=== PATIENT | male | born 1960 | race Caucasian/White ===

== ENCOUNTER → 2018-03-27 08:00 | Outpatient (CLI) | payer BC, SELFPAY ==
[2018-03-27 11:53] LABS: BUN Creatinine Ratio 26.3 (6-22); Blood Urea Nitrogen 21 mg/dL (9-20); Calcium 9.3 mg/dL (8.4-10.2); Carbon Dioxide 23 mmol/L (22-32); Chloride 104 mmol/L (98-107); Cholesterol 206 mg/dL (140-199); Estimated Glomerular Filt Rate > 60.0 mL/min (>60); Glucose 188 mg/dL (70-100); HDL Cholesterol 49 mg/dL (40-60); HEMOLYSIS < 15 (0-50); LDL Cholesterol Calculated 124 mg/dL (<100); Potassium 4.2 mmol/L (3.4-5.1); Sodium 139 mmol/L (137-145); Triglycerides 167 mg/dL (35-150)
[2018-03-27 13:02] LABS: Hemoglobin A1C% w Est Avg Glu 7.8 % (4.0-6.0)
== END ==
PROVIDERS: PCP Family Medicine; Visit Provider Family Medicine
DX: E11.9 Type 2 diabetes mellitus without complications (principal)
CPT/HCPCS: 36415; 80048; 80061; 83036

== ENCOUNTER → 2018-06-28 07:45 | Outpatient (CLI) | payer BC, SELFPAY ==
[2018-06-28 08:20] LABS: Add Manual Diff / Slide Review NO; Basophils Percent Auto 0.4 % (0-2); Eosinophils Percent Auto 3.9 % (2-4); Hematocrit 47.5 % (41-53); Hemoglobin 16.6 g/dL (13.5-17.5); Lymphocytes Percent Auto 31.5 % (25-40); Mean Corpuscular HGB Conc 34.9 % (30-36); Mean Corpuscular Hemoglobin 30.9 PG (26-34); Mean Corpuscular Volume 88.6 fL (80-100); Monocytes Percent Auto 9.2 % (3-14); Neutrophils Absolute Auto 3400 /uL (3000-5900); Platelet Count 161 X10^3/uL (150-400); Red Blood Cell Count 5.36 X10^6/uL (4.5-5.9); Red Cell Distribution Width 13.9 % (11.6-14.8); White Blood Cell Count 6.2 X10^3/uL (4.5-11.0)
[2018-06-28 08:58] LABS: Hemoglobin A1C% w Est Avg Glu 7.5 % (4.0-6.0)
[2018-06-28 09:09] LABS: Alanine Aminotransferase 24 IU/L (21-72); Albumin 4.1 g/dL (3.5-5.0); Albumin Globulin Ratio 1.5 (1.0-2.8); Alkaline Phosphatase 77 U/L (38-126); Aspartate Aminotransferase 17 IU/L (17-59); BUN Creatinine Ratio 22.5 (6-22); Bilirubin Total 0.8 mg/dL (0.2-1.3); Blood Urea Nitrogen 18 mg/dL (9-20); Calcium 9.3 mg/dL (8.4-10.2); Carbon Dioxide 27 mmol/L (22-32); Chloride 102 mmol/L (98-107); Cholesterol 186 mg/dL (140-199); Estimated Glomerular Filt Rate > 60.0 mL/min (>60); Globulin 2.7 g/dL (1.7-4.1); Glucose 186 mg/dL (70-100); HDL Cholesterol 43 mg/dL (40-60); HEMOLYSIS < 15 (0-50); LDL Cholesterol Calculated 116 mg/dL (<100); Magnesium 1.8 mg/dL (1.6-2.3); Potassium 4.1 mmol/L (3.4-5.1); Sodium 141 mmol/L (137-145); Total Protein 6.8 g/dL (6.3-8.2); Triglycerides 134 mg/dL (35-150)
[2018-06-28 10:00] LABS: Thyroid Stimulating Hormone 1.32 uIU/mL (0.47-4.68)
== END ==
PROVIDERS: PCP Family Medicine; Visit Provider Family Medicine
DX: E11.9 Type 2 diabetes mellitus without complications (principal); I10 Essential (primary) hypertension
CPT/HCPCS: 36415; 80053; 80061; 83036; 83735; 84443; 85025

== ENCOUNTER → 2019-01-01 06:57 | Outpatient (CLI) | payer BC, SELFPAY ==
[2019-01-01 09:24] LABS: Hemoglobin A1C% w Est Avg Glu 7.8 % (4.0-6.0)
== END ==
PROVIDERS: PCP Family Medicine; Visit Provider Family Medicine
DX: E11.9 Type 2 diabetes mellitus without complications (principal)
CPT/HCPCS: 36415; 83036

== ENCOUNTER → 2019-05-12 15:56 | Outpatient (CLI) | payer BC, SELFPAY ==
[2019-05-12 16:39] LABS: Hemoglobin A1C% w Est Avg Glu 7.2 % (4.0-6.0)
[2019-05-12 16:50] LABS: BUN Creatinine Ratio 21.3 (6-22); Blood Urea Nitrogen 17 mg/dL (9-20); Calcium 9.8 mg/dL (8.4-10.2); Carbon Dioxide 23 mmol/L (22-32); Chloride 105 mmol/L (98-107); Estimated Glomerular Filt Rate > 60.0 mL/min (>60); Glucose 194 mg/dL (80-110); HEMOLYSIS < 15 (0-50); Potassium 4.1 mmol/L (3.4-5.1); Sodium 139 mmol/L (137-145)
== END ==
PROVIDERS: PCP Family Medicine; Visit Provider Family Medicine
DX: E11.9 Type 2 diabetes mellitus without complications (principal)
CPT/HCPCS: 36415; 80048; 83036

== ENCOUNTER → 2019-11-06 07:38 | Outpatient (CLI) | payer BC, SELFPAY ==
[2019-11-06 08:25] LABS: Add Manual Diff / Slide Review NO; Basophils Absolute Auto 0 /uL (0-100); Basophils Percent Auto 0.3 % (0-2); Eosinophils Absolute Auto 200 /uL (0-450); Eosinophils Percent Auto 3.6 % (2-4); Hemoglobin 16.9 g/dL (13.5-17.5); Lymphocytes Absolute Auto 2600 /uL (1100-4500); Lymphocytes Percent Auto 42.6 % (25-40); Mean Corpuscular HGB Conc 34.5 % (30-36); Mean Corpuscular Volume 89.8 fL (80-100); Monocytes Absolute Auto 400 /uL (0-900); Monocytes Percent Auto 6.7 % (3-14); Neutrophils Absolute Auto 2800 /uL (1500-7000); Neutrophils Percent Auto 46.8 % (50-75); Platelet Count 166 X10^3/uL (150-400); Red Blood Cell Count 5.46 X10^6/uL (4.5-5.9); Red Cell Distribution Width 13.4 % (11.6-14.8); White Blood Cell Count 6.1 X10^3/uL (4.5-11.0)
[2019-11-06 08:30] LABS: Creatinine Urine Random 217.6 mg/dL
[2019-11-06 08:37] LABS: Microalbumi Creatinin Ratio Ur 36.3 ug/mg CR (<30); Microalbumin Urine Random 7.9 mg/dL (0-1.6)
[2019-11-06 08:51] LABS: Hemoglobin A1C% w Est Avg Glu 7.8 % (4.0-6.0)
[2019-11-06 08:56] LABS: Alanine Aminotransferase 21 IU/L (<50); Albumin 4.3 g/dL (3.5-5.0); Albumin Globulin Ratio 1.5 (1.0-2.8); Alkaline Phosphatase 81 U/L (38-126); Aspartate Aminotransferase 22 IU/L (17-59); BUN Creatinine Ratio 21.3 (6-22); Bilirubin Total 0.9 mg/dL (0.2-1.3); Blood Urea Nitrogen 17 mg/dL (9-20); Calcium 9.6 mg/dL (8.4-10.2); Carbon Dioxide 27 mmol/L (22-32); Chloride 102 mmol/L (98-107); Cholesterol 216 mg/dL (140-199); Estimated Glomerular Filt Rate > 60.0 mL/min (>60); Globulin 2.8 g/dL (1.7-4.1); Glucose 192 mg/dL (80-110); HDL Cholesterol 45 mg/dL (40-60); HEMOLYSIS < 15 (0-50); LDL Cholesterol Calculated 131 mg/dL (<100); Potassium 4.2 mmol/L (3.4-5.1); Sodium 139 mmol/L (137-145); Total Protein 7.1 g/dL (6.3-8.2); Triglycerides 199 mg/dL (35-150)
[2019-11-06 09:18] LABS: Prostate Specific Antigen Scrn 0.871 ng/mL (0.1-4.0)
== END ==
PROVIDERS: PCP Family Medicine; Referring Provider Family Medicine; Visit Provider Family Medicine
DX: E11.9 Type 2 diabetes mellitus without complications (principal)
CPT/HCPCS: 36415; 80053; 80061; 82043; 82570; 83036; 85025; G0103

== ENCOUNTER 2019-12-03 07:30 | Outpatient (RCR) | payer BC, SELFPAY ==
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
--- NOTE | 2019-09-29 12:34 | PT.OPPOC ---
Physical, Occupational & Speech Therapy At [facility] Current Diagnoses Pain in left shoulder (09/29/19) Visit Care Team Role Provider Type Oseas Trammell MD Attending Provider Physician Primary Care Provider Specialty: Family Practice Address: [address] [place] [address], [id number] Email: [email or web address] Plan Of Care PT-OP-T Assessment and Plan Start: 09/25/19 09:26 Freq: Status: Active Protocol: Document 09/29/19 09:46 MB (Rec: 09/29/19 12:34 MB [id number]) Physical Therapy Assessment Rehab Potential Rehabilitation Potential Excellent Evaluation Complexity Number of Personal Factors/Comorbidities 1-2 Number of Body Systems Impaired 1-2 Clinical Presentation at Evaluation Stable Impairments Impairments Functional Activities, Functional Mobility,Pain, Posture,ROM,Soft Tissue Mobility,Strength Goals 5 Penitentiary Goal (LTG) Pt will report an overall 75% improvement in left shoulder pain to improve sleeping by . LTG Duration 8 weeks 4 Penitentiary Goal (LTG) Pt will perform HEP with I including flexibility, strength and posture exercises to improve shoulder and pain by 11/28/2019. LTG Duration 8 weeks 3 Gas Pipe Layer Goal (LTG) Pt will present with improved right shoulder ER strength to 5/5 and left shoulder flexion, abduction, ER and IR strength to at least 4/5 to improve bimanual tasks like yard work and grilling by 11/28/2019. LTG Duration 8 weeks 2 Penitentiary Goal (LTG) Pt will present with improved left shoulder AROM abduction and flexion to at least 165 deg and IR behind back to at least L1 level to improve functional mobility by 2019. LTG Duration 8 weeks 1 Gas Pipe Layer Goal (LTG) Pt will present with QuickDASH score reflecting no more than 10% impairment to improve use of left arm with dressing and showering by 11/28/2019. LTG Duration 8 weeks Assessment Summary Assessment Pt is a 58 y/o male presenting with slow onset of left shoulder decreased ROM, strength and pain. He reports pain up to 5/10 that bothers him when he sleeps on either side, puts his left arm in his coat and tries to reach behind his back. He presents with postural changes, decreased active and passive left shoulder ROM and strength and pain with some ROM activities and demonstrates guarding with PROM. Pt presents with myofascial changes greatest in infraspinatus and middle and anterior deltoid. He will benefit from PT for postural training, flexibility, and strength training. A barrier may be 1x/wk frequency of PT, which pt requests. Physical Therapy Plan Frequency and Duration Frequency of Treatment 1x/Week Duration of Treatment 8 weeks Plan of Care Start Date 09/29/19 Plan of Care End Date 11/28/19 Therapeutic Interventions Therapeutic Interventions Aquatic Therapy,Home Exercise Program,Manual Therapy, Neuromuscular Re-education, Patient/Caregiver Education, Self-Care/Home Management,Soft Tissue Mobilization,Taping, Therapeutic Activities, Therapeutic Exercises Modalities Cold Pack/Ice Massage,Electric Stimulation,Hot Packs, Ultrasound Other Therapeutic Interventions Cold laser Next Visit Focus/Plan Next Note Type Treatment Note Next Visit Plan Consider upper traps racquet ball massage, pect stretch, initiate scapular strengthening if ready vs ROM with cane Plan of Care Dates Plan of Care Start Date 09/29/19 Plan of Care End Date 11/28/19 Electronically Signed by: Kenzie Joy PT 09/29/19 1235 Please Sign and Return: I have reviewed this Plan of Care and certify that the skilled therapy services above are required to meet the patient?s needs. Physician Signature Date Printed Name and Credentials Clinical Instructor Signature Printed Name and Credentials
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
--- NOTE | 2019-11-26 08:32 | PT.OPPOC ---
Physical, Occupational & Speech Therapy At [facility] Current Diagnoses Pain in left shoulder (11/26/19) Visit Care Team Role Provider Type Oseas Trammell MD Attending Provider Physician Primary Care Provider Specialty: Family Practice Address: [address] [place] [address], [id number] Email: [email or web address] Plan Of Care PT-OP-T Assessment and Plan Start: 09/25/19 09:26 Freq: Status: Active Protocol: Document 11/26/19 07:33 MB (Rec: 11/26/19 08:16 MB [id number]) Physical Therapy Assessment Rehab Potential Rehabilitation Potential Excellent Evaluation Complexity Number of Personal Factors/Comorbidities 1-2 Number of Body Systems Impaired 1-2 Clinical Presentation at Evaluation Stable Impairments Impairments Functional Activities, Functional Mobility,Pain, Posture,ROM,Soft Tissue Mobility,Strength Goals 5 School Crossing Guard Goal (LTG) Pt will report an overall 75% improvement in left shoulder pain to improve sleeping by 07/2020. 11/26/2019: Pt reports an overall 30% improvement in left shoulder pain since starting PT. LTG Duration 8 weeks 4 School Crossing Guard Goal (LTG) Pt will perform HEP with I including flexibility, strength and posture exercises to improve shoulder and pain by 01/26/2020. 11/26/2019: Pt is performing progressive HEP as able. LTG Duration 8 weeks 3 School Crossing Guard Goal (LTG) Pt will present with improved right shoulder ER strength to 5/5 and left shoulder flexion, abduction, ER and IR strength to at least 4/5 to improve bimanual tasks like yard work and grilling by 01/26/2020. 11/26/2019: MMT deferred today after mobs and BPPV treatment, range is better LTG Duration 8 weeks 2 School Crossing Guard Goal (LTG) Pt will present with improved left shoulder AROM abduction and flexion to at least 165 deg and IR behind back to at least L1 level to improve functional mobility by 2019. 11/26/2019: Pt presents with left shoulder flexion to 120 deg, left shoulder abduction to 90 deg, IR behind back to 2 above belt line today LTG Duration 8 weeks 1 Longterm Goal (LTG) Pt will present with QuickDASH score reflecting no more than 10% impairment to improve use of left arm with dressing and showering by 01/26/2020. 11/26/2019: Pt presents with QuickDASH score reflecting 27. 25% impairment LTG Duration 8 weeks Assessment Summary Assessment Pt has progressed towards all goals since starting PT. Reports on QuickDASH today do reflect higher score but this may indicate more use of arms with ADLs, work. Improvement has been slow d/t 1x/wk frequency, pt having to go out of town and cancelling a couple of appointments. He has been better over the last three treatments. He will benefit from ongoing PT to progress ROM, function and to decrease pain. Initiated [place] Protocol today to asst with glenohumeral and scapular mobility. ROM in abduction, flexion, ER and IR much better after treament--he reaches with left 2 above belt line. Stopped full mob treatment today d/t BPPV and treatment. Con't progression. Physical Therapy Plan Frequency and Duration Frequency of Treatment 1x/Week Duration of Treatment 8 weeks Plan of Care Start Date 09/29/19 Plan of Care End Date 01/26/20 Therapeutic Interventions Therapeutic Interventions Aquatic Therapy,Canalithic Repositioning,Home Exercise Program,Manual Therapy, Neuromuscular Re-education, Patient/Caregiver Education, Self-Care/Home Management,Soft Tissue Mobilization,Taping, Therapeutic Activities, Therapeutic Exercises Modalities Cold Pack/Ice Massage,Electric Stimulation,Hot Packs, Ultrasound Other Therapeutic Interventions Cold laser Next Visit Focus/Plan Next Note Type Treatment Note Next Visit Plan Consider pillow case slide up the wall, IR behind back Plan of Care Dates Plan of Care Start Date 09/29/19 Plan of Care End Date 01/26/20 Electronically Signed by: Kenzie Joy, PT 11/26/19 0832 Please Sign and Return: I have reviewed this Plan of Care and certify that the skilled therapy services above are required to meet the patient?s needs. Physician Signature Date Printed Name and Credentials Clinical Instructor Signature Printed Name and Credentials
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
--- NOTE | 2019-12-27 13:10 | PT-OP ANOTE ---
PT calls pt and leaves message regarding PT plan. PT leaves [facility] email address for pt to respond.
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
== END 2019-12-29 00:52 ==
LOC: PHYS 07:30
PROVIDERS: PCP Family Medicine; Visit Provider Family Medicine
DX: M25.512 Pain in left shoulder (principal)
CPT/HCPCS: 95992; 97110; 97140; 97161

== ENCOUNTER → 2020-02-13 07:15 | Outpatient (CLI) | payer BC, SELFPAY ==
[2020-02-13 08:17] LABS: BUN Creatinine Ratio 19.8 (6-22); Blood Urea Nitrogen 16 mg/dL (9-20); Calcium 9.8 mg/dL (8.4-10.2); Carbon Dioxide 27 mmol/L (22-32); Chloride 102 mmol/L (98-107); Estimated Glomerular Filt Rate > 60.0 mL/min (>60); Glucose 162 mg/dL (80-110); HEMOLYSIS 16 (0-50); Potassium 4.5 mmol/L (3.4-5.1); Sodium 137 mmol/L (137-145)
[2020-02-13 08:20] LABS: Hemoglobin A1C% w Est Avg Glu 7.7 % (4.0-6.0)
== END ==
PROVIDERS: PCP Family Medicine; Referring Provider Family Medicine; Visit Provider Family Medicine
DX: E11.9 Type 2 diabetes mellitus without complications (principal)
CPT/HCPCS: 36415; 80048; 83036

== ENCOUNTER → 2020-05-13 07:51 | Outpatient (CLI) | payer BC, SELFPAY ==
[2020-05-13 08:55] LABS: Hemoglobin A1C% w Est Avg Glu 7.7 % (4.0-6.0)
[2020-05-13 09:05] LABS: BUN Creatinine Ratio 19.5 (6-22); Blood Urea Nitrogen 17 mg/dL (9-20); Calcium 9.8 mg/dL (8.4-10.2); Carbon Dioxide 26 mmol/L (22-32); Chloride 103 mmol/L (98-107); Estimated Glomerular Filt Rate > 60.0 mL/min (>60); Glucose 154 mg/dL (80-110); HEMOLYSIS 16 (0-50); Potassium 4.9 mmol/L (3.4-5.1); Sodium 138 mmol/L (137-145)
== END ==
PROVIDERS: PCP Family Medicine; Referring Provider Family Medicine; Visit Provider Family Medicine
DX: E11.9 Type 2 diabetes mellitus without complications (principal)
CPT/HCPCS: 36415; 80048; 83036

== ENCOUNTER → 2020-07-27 07:19 | Outpatient (CLI) | payer BC, SELFPAY ==
[2020-07-27 09:20] LABS: BUN Creatinine Ratio 23.3 (6-22); Blood Urea Nitrogen 17 mg/dL (9-20); Calcium 9.6 mg/dL (8.4-10.2); Carbon Dioxide 24 mmol/L (22-32); Chloride 102 mmol/L (98-107); Estimated Glomerular Filt Rate > 60.0 mL/min (>60); Glucose 248 mg/dL (80-110); HEMOLYSIS < 15 (0-50); Hemoglobin A1C% w Est Avg Glu 8.2 % (4.0-6.0); Potassium 4.4 mmol/L (3.4-5.1); Sodium 135 mmol/L (137-145)
== END ==
PROVIDERS: PCP Family Medicine; Referring Provider Family Medicine; Visit Provider Family Medicine
DX: E11.9 Type 2 diabetes mellitus without complications (principal); R73.09 Other abnormal glucose; E78.2 Mixed hyperlipidemia; I10 Essential (primary) hypertension
CPT/HCPCS: 36415; 80048; 83036

== ENCOUNTER → 2020-08-26 06:52 | Outpatient (CLI) | payer BC, SELFPAY ==
[2020-08-26 09:01] LABS: BUN Creatinine Ratio 25.5 (6-22); Blood Urea Nitrogen 25 mg/dL (9-20); Calcium 9.7 mg/dL (8.4-10.2); Carbon Dioxide 30 mmol/L (22-32); Chloride 100 mmol/L (98-107); Estimated Glomerular Filt Rate > 60.0 mL/min (>60); Glucose 170 mg/dL (80-110); HEMOLYSIS < 15 (0-50); Potassium 4.3 mmol/L (3.4-5.1); Sodium 136 mmol/L (137-145)
== END ==
PROVIDERS: PCP Family Medicine; Referring Provider Family Medicine; Visit Provider Family Medicine
DX: E11.9 Type 2 diabetes mellitus without complications (principal)
CPT/HCPCS: 36415; 80048; 83036

== ENCOUNTER → 2020-11-02 06:58 | Outpatient (CLI) | payer BC, SELFPAY ==
[2020-11-02 08:17] LABS: Hemoglobin A1C% w Est Avg Glu 8.2 % (4.0-6.0)
[2020-11-02 08:23] LABS: Alanine Aminotransferase 15 IU/L (<50); Albumin 4.1 g/dL (3.5-5.0); Albumin Globulin Ratio 1.4 (1.0-2.8); Alkaline Phosphatase 85 U/L (38-126); Aspartate Aminotransferase 19 IU/L (17-59); BUN Creatinine Ratio 24.7 (6-22); Bilirubin Total 0.6 mg/dL (0.2-1.3); Blood Urea Nitrogen 22 mg/dL (9-20); Calcium 9.4 mg/dL (8.4-10.2); Carbon Dioxide 31 mmol/L (22-32); Chloride 101 mmol/L (98-107); Cholesterol 188 mg/dL (140-199); Estimated Glomerular Filt Rate > 60.0 mL/min (>60); Globulin 2.9 g/dL (1.7-4.1); Glucose 197 mg/dL (80-110); HDL Cholesterol 51 mg/dL (40-60); HEMOLYSIS < 15 (0-50); LDL Cholesterol Calculated 114 mg/dL (<100); Potassium 3.8 mmol/L (3.4-5.1); Sodium 137 mmol/L (137-145); Triglycerides 113 mg/dL (35-150)
[2020-11-02 08:40] LABS: Creatinine Urine Random 195.5 mg/dL
[2020-11-02 08:44] LABS: Microalbumi Creatinin Ratio Ur 19.9 ug/mg CR (<30); Microalbumin Urine Random 3.9 mg/dL (0-1.6)
[2020-11-02 08:55] LABS: Prostate Specific Antigen Scrn 1.41 ng/mL (0.1-4.0)
== END ==
PROVIDERS: PCP Family Medicine; Referring Provider Family Medicine; Visit Provider Family Medicine
DX: E11.9 Type 2 diabetes mellitus without complications (principal); I10 Essential (primary) hypertension; E78.2 Mixed hyperlipidemia; Z12.5 Encounter for screening for malignant neoplasm of prostate
CPT/HCPCS: 36415; 80053; 80061; 82043; 82570; 83036; G0103

== ENCOUNTER → 2020-11-05 08:18 | Outpatient (CLI) | payer BC, SELFPAY ==
--- NOTE | 2020-11-05 08:18 | DI.US.S_ITS ---
PROCEDURE: US ABDOMEN LIMITED INDICATIONS: RIGHT UPPER QUADRANT PAIN TECHNIQUE: Real-time focused scanning was performed of the abdomen, with image documentation. COMPARISON: None. FINDINGS: The liver is normal in craniocaudad length at 12.5 cm. It is mildly increased in echotexture, and note is made of a small left hepatic lobe cyst with minimal internal debris measuring up to 5 x 6 x 7 mm. The main portal vein for flow direction is normal, hepatopetal. The gallbladder is normal in wall thickness at 2.7 mm. There is, however, a finding of sludge in several stones, 1 of which is nonmobile and measures up to 1.4 cm. The adjacent common duct is normal in caliber at 4.1 cm. The pancreas is normal where well seen. IMPRESSION: Hyperechoic liver echotexture, indicating mild hepatic steatosis. No solid hepatic mass lesion found. No intrahepatic or extrahepatic biliary distention is seen. The gallbladder is normal in wall thickness but there is sludge and several stones within the gallbladder lumen. Acute cholecystitis is not found but the findings may indicate episodic biliary colic in this patient with right upper quadrant pain., Dictated by: Rodrigue Barger M.D. on 11/05/2020 at 13:01 Approved by: Rodrigue Barger M.D. on 11/05/2020 at 13:06
== END ==
PROVIDERS: PCP Family Medicine; Referring Provider Family Medicine; Visit Provider Family Medicine
DX: R10.11 Right upper quadrant pain (principal); K80.20 Calculus of gallbladder without cholecystitis without obstruction; I10 Essential (primary) hypertension
CPT/HCPCS: 76705

== ENCOUNTER 2020-12-29 09:25 | Observation (INO) | payer BC, SELFPAY ==
[2020-12-29] VITALS (13 sets, daily range): BP systolic 105–135; BP diastolic 66–86; PULSE 93–119; RESP 14–25; TEMP 36.6–37; O2SAT 95–100; BMI 28.8
[2020-12-29 10:08] LABS: Add Manual Diff / Slide Review NO; Basophils Absolute Auto 100 /uL (0-100); Basophils Percent Auto 0.5 % (0-2); Eosinophils Absolute Auto 200 /uL (0-450); Eosinophils Percent Auto 2.4 % (2-4); Hematocrit 50.9 % (41-53); Hemoglobin 17.2 g/dL (13.5-17.5); Lymphocytes Absolute Auto 2100 /uL (1100-4500); Lymphocytes Percent Auto 20.6 % (25-40); Mean Corpuscular HGB Conc 33.9 % (30-36); Mean Corpuscular Hemoglobin 30.6 PG (26-34); Mean Corpuscular Volume 90.4 fL (80-100); Monocytes Absolute Auto 1000 /uL (0-900); Monocytes Percent Auto 10.3 % (3-14); Neutrophils Absolute Auto 6600 /uL (1500-7000); Neutrophils Percent Auto 66.2 % (50-75); Platelet Count 152 X10^3/uL (150-400); Red Blood Cell Count 5.63 X10^6/uL (4.5-5.9); Red Cell Distribution Width 13.9 % (11.6-14.8)
[2020-12-29 10:14] LABS: Prothrombin Time 11.8 SECONDS (10.1-12.7)
[2020-12-29] MEDS: SODIUM CHLORIDE 0.9% 1,000 ML 1000 ML IV (10:16)
[2020-12-29 10:17] LABS: Lactate (Lactic Acid) 1.8 mmol/L (0.7-2.1); PTT Partial Thromboplastin Tim 33 SECONDS (26.4-36.2)
[2020-12-29 10:19] LABS: Alanine Aminotransferase 15 IU/L (<50); Albumin 4.1 g/dL (3.5-5.0); Albumin Globulin Ratio 1.4 (1.0-2.8); Alkaline Phosphatase 80 U/L (38-126); Aspartate Aminotransferase 18 IU/L (17-59); Bilirubin Total 0.7 mg/dL (0.2-1.3); Blood Urea Nitrogen 30 mg/dL (9-20); Calcium 9.9 mg/dL (8.4-10.2); Carbon Dioxide 21 mmol/L (22-32); Chloride 102 mmol/L (98-107); Estimated Glomerular Filt Rate > 60.0 mL/min (>60); Globulin 2.9 g/dL (1.7-4.1); Glucose 280 mg/dL (80-110); HEMOLYSIS < 15 (0-50); Lipase 93 U/L (23-300); Potassium 4.3 mmol/L (3.4-5.1); Sodium 134 mmol/L (137-145)
--- NOTE | 2020-12-29 10:28 | ED_ITS ---
HPI - Dizziness General Chief Complaint: Abdominal Pain Stated Complaint: severe vertigo 45 minutes/gall bladder attack Time Seen by Provider: 12/29/20 10:09 Source: patient Mode of arrival: Ambulatory Limitations: no limitations History of Present Illness HPI Narrative: Patient is a 60-year-old male who presents with a variety of complaints including dizziness. He has a history of diabetes and gallbladder issues. He said this morning at around 8:15 a.m. he got extremely dizzy was off balance had difficulty with walking. He has had episodes of vertigo before but this is slightly different. The whole episode lasted for about 45 minutes and has now completely resolved. Although states that he did not have any difficulty speaking or facial droop. He had no numbness tingling or weakness. He has been having right upper quadrant pain off and on throughout the weekend stating that he has gallbladder attack. He had an ultrasound back in October which did show there were sludge and several stones. He currently has no right upper quadrant pain. He is also concerned that his glucose may be was high, thought that he smelled of ketones while he was sleeping in the has respirations happened fast. He has no nausea or vomiting now. Dizziness has resolved. He denies any chest pain palpitations fever or chills. He is self pay and they would like to limit ED cough however they are agreeable to head CT and blood work at this time. MD complaint: dizziness Timing: sudden onset Description: sense of movement Related Data Home Medications Medication Instructions Recorded Confirmed empagliflozin [Jardiance] 25 mg PO BEDTIME 12/29/20 12/29/20 gabapentin 100 mg PO BEDTIME 12/29/20 12/29/20 lisinopril 10 mg PO BEDTIME 12/29/20 12/29/20 Previous Rx's Medication Instructions Recorded sildenafil (pulm.hypertension) 20 20 mg PO ONCE #30 tab 05/12/19 mg tablet metformin 500 mg tablet 1,000 mg PO BID #45 tab 10/28/20 zolpidem 5 mg tablet 5 mg PO HSP PRN #30 tab 11/01/20 glipizide 10 mg tablet, extended 10 mg PO BID #180 tab 12/09/20 release 24 hr Allergies Allergy/AdvReac Type Severity Reaction Status Date / Time No Known Drug Allergies Allergy Verified 12/29/20 13:10 Review of Systems Review of Systems ROS Unobtainable: All systems reviewed & are unremarkable except as noted in HPI and below Constitutional Constitutional: Denies chills, Denies fever(s), Denies lethargy and Denies weakness ENT Ears, Nose, Mouth, and Throat: Denies vertigo and Reports dizziness Cardiovascular Cardiovascular: Denies chest pain, Denies irregular heart rhythm, Reports lightheadedness, Denies palpitations, Denies dyspnea, Denies dyspnea on exertion and Denies orthopnea Respiratory Respiratory: Denies cough, Denies dyspnea, Denies dyspnea on exertion and Denies wheezing Gastrointestinal Gastrointestinal: Reports as per HPI Musculoskeletal Musculoskeletal: Denies myalgias and Denies muscle cramps Integumentary/Breasts Skin/Breast: Denies pruritus, Denies erythema, Denies rash and Denies wounds Neurologic Neurologic: Denies vertigo, Reports dizziness and Denies weakness Endocrine Endocrine: Denies palpitations Allergic/Immunologic Allergic/Immunologic: Denies wheezing Patient History Medical History (Updated 12/29/20 @ 17:21 by Norberto Hunt MD) Cholelithiasis Chronic back pain (~1975) Diverticular disease (~2015) Essential hypertension (~2010) Foot pain (~2010) Herpes (~1976) Mixed hyperlipidemia (10/03/17) Tinnitus Type 2 diabetes mellitus without complication (10/03/17) Vertigo (~2018) Surgical History Anesthesia History of dental surgery (~2018) History of toe surgery (~2015) Status post LASIK surgery of both eyes (~1997) Family History Father Hypertension Mother Dementia Hospice care Social History household members: family Smoking Status: Never smoker Smoking Status: Never smoker Substance Use Type: does not use Exam Initial Vital Signs Initial Vital Signs: Vital Signs Temperature 97.8 F 12/29/20 09:25 Pulse Rate 116 H 12/29/20 09:25 Respiratory Rate 17 12/29/20 09:25 Blood Pressure 108/79 12/29/20 09:25 Pulse Oximetry 97 12/29/20 09:25 GENERAL: Alert pleasant 60-year-old male and in no acute distress. HEENT: Head atraumatic,EOMI, pupils reactive, face symmetric, moist mucous membranes CARDIOVASCULAR: Regular rate and rhythm without murmurs, rubs or gallops. RESPIRATORY: Breath sounds equal bilaterally, no wheezes rales or rhonchi. ABDOMEN: Soft, nontender. Normoactive bowel sounds all 4 quadrants. No guarding or rebound. Negative Caballero sign : No CVA tenderness EXTREMITIES: Normal range of motion, no clubbing or edema. Neurovascularly intact NEUROLOGICAL: Alert and oriented x4.Normal gait and speech. Cranial nerves II through XII grossly intact. Good [id number], good [id number], strength equal bilaterally, no dysarthria or aphasia, sensation in tact to soft touch bilaterally, no visual changes, no facial droop SKIN: Warm, dry, no laceration, no petechiae, no rashes or lesions. Scores NIH Stroke Scale Level of Conciousness: Alert, keenly responsive Ask month/age: Answers both questions correctly. Open/close eyes, close hand: Performs both tasks correctly Best gaze horizontal: Normal Visual valverde: No visual loss Facial palsy: Normal symetrical movement Left arm drift: No drift for full 10 sec Right arm drift: No drift for full 10 sec Left leg drift: No drift for full 5 sec Right leg drift: No drift for full 5 sec Limb ataxia: Absent Sensory on face/arms/legs: Normal, no sensory loss Best language: No aphasia, normal Dysarthria: Normal Extinction or inattention: No abnormality Total NIH Stroke scale score: 0 Course Orders Ordered: ED Orders 12/29/20 10:00 Complete Blood Count AUTO DIFF Stat Comprehensive Metabolic Panel Stat D Dimer Stat Lactate (Lactic Acid) Stat Lipase Stat Partial Thromboplastin Time Stat Procalcitonin Stat Prothrombin Time INR Stat Troponin & CK Cardiac Panel Stat 12/29/20 10:30 CT head/brain wo con Stat 12/29/20 11:59 CT angio chest PE protocol Stat 12/29/20 12:37 COVID19 - ADMIT ([employer] swab/PCR) Stat Aspirin (Aspirin Ec 81 Mg Tablet) 81 mg PO DAILY GELY Dextrose (Dextrose 50 % In Water 25 Gm/50 Ml Syringe) 25 gm IV PRN PRN; Protoco l PRN Reason: Hypoglycemia Gabapentin (Gabapentin 100 Mg Capsule) 100 mg PO BEDTIME GELY Glipizide (Glipizide Xl 5 Mg Tab) 10 mg PO BIDWM GELY Last Admin: 12/29/20 17:14 Dose: 10 mg Documented by: RADHA Insulin Aspart (Insulin Aspart 100 Unit/Ml Insuln Pen) 0 unit SUBCUT [facility]; Protocol Last Admin: 12/29/20 16:48 Dose: 1 unit Documented by: RADHA Cosigned by: MOOSE Lisinopril (Lisinopril 10 Mg Tablet) 10 mg PO BEDTIME GELY Magnesium Hydroxide (Magnesium Hydroxide 30 Ml Udc) 30 ml PO DAILY PRN PRN Reason: Constipation Metformin HCl (Metformin Hcl 500 Mg Tablet) 1,000 mg PO BIDWM GELY Naloxone HCl (Naloxone 0.4 Mg/Ml Vial) 0.2 mg IV Q2MIN PRN PRN Reason: Opiate Reversal Empagliflozin [ Jardiance] 25 Mg Tablet 25 mg PO BEDTIME GELY Zolpidem Tartrate (Zolpidem 5 Mg Tablet) 5 mg PO BEDTIME PRN PRN Reason: insomnia Discontinued Medications Aspirin (Aspirin 81 Mg Chew Tab) 324 mg PO NOW ONE Stop: 12/29/20 12:41 Last Admin: 12/29/20 13:26 Dose: 324 mg Documented by: ARUN Sodium Chloride (Normal Saline 0.9%) 1,000 mls @ 1,000 mls/hr IV BOLUS ONE Stop: 12/29/20 10:47 Last Infusion: 12/29/20 11:30 Dose: 0 mls/hr Documented by: Admin: 12/29/20 10:16 Dose: 1,000 mls/hr Documented by: ARUN Vital Signs Vital signs: Vital Signs - 8 hr 12/29/20 09:53 12/29/20 10:00 12/29/20 10:30 Pulse Rate 105 H 108 H 100 H Respiratory Rate 14 Blood Pressure 105/69 107/66 Pulse Oximetry 96 95 96 12/29/20 10:42 12/29/20 11:00 12/29/20 12:18 Pulse Rate 99 H 93 H 98 H Respiratory Rate 16 25 H Blood Pressure 135/86 108/71 119/76 Pulse Oximetry 98 96 97 12/29/20 12:30 12/29/20 13:00 Pulse Rate 98 H 106 H Respiratory Rate 25 H 24 Blood Pressure 112/73 126/79 Pulse Oximetry 97 97 MDM - Dizziness Lab Data Attestation: I reviewed the patient's lab results. Result diagrams: 12/29/20 10:00 12/29/20 10:00 Labs: Lab Results 12/29/20 12/29/20 12/29/20 Range/Units 10:00 10:00 10:00 WBC 10.0 (4.5-11.0) X10^3/uL RBC 5.63 (4.5-5.9) X10^6/uL Hgb 17.2 (13.5-17.5) g/dL Hct 50.9 (41-53) % MCV 90.4 (80-100) fL MCH 30.6 (26-34) PG MCHC 33.9 (30-36) % RDW 13.9 (11.6-14.8) % Plt Count 152 (150-400) X10^3/uL Neut % (Auto) 66.2 (50-75) % Lymph % (Auto) 20.6 L (25-40) % [place] % (Auto) 10.3 (3-14) % Eos % (Auto) 2.4 (2-4) % Baso % (Auto) 0.5 (0-2) % Neut # (Auto) 6600 (7195-5931) /uL Lymph # (Auto) 2100 (0222-9736) /uL [place] # (Auto) 1000 H (0-900) /uL Eos # (Auto) 200 (0-450) /uL Baso # (Auto) 100 (0-100) /uL PT 11.8 (10.1-12.7) SECONDS INR 1.0 (0.9-1.3) APTT 33 (26.4-36.2) SECONDS D-Dimer (<230) ng/mL Sodium 134 L (137-145) mmol/L Potassium 4.3 (3.4-5.1) mmol/L Chloride 102 (98-107) mmol/L Carbon Dioxide 21 L (22-32) mmol/L BUN 30 H (9-20) mg/dL Creatinine 1.11 (0.66-1.25) mg/dL Estimated GFR > 60.0 (>60) mL/min BUN/Creatinine Ratio 27.0 H (6-22) Glucose 280 H (80-110) mg/dL Hemoglobin A1c (4.0-6.0) % Lactate (0.7-2.1) mmol/L Calcium 9.9 (8.4-10.2) mg/dL Total Bilirubin 0.7 (0.2-1.3) mg/dL AST 18 (17-59) IU/L ALT 15 (<50) IU/L Alkaline Phosphatase 80 (38-126) U/L Total Creatine Kinase (55-170) U/L CK-MB (CK-2) CK-MB (CK-2) Rel Index Troponin I (0.01-0.034) ng/mL Total Protein 7.0 (6.3-8.2) g/dL Albumin 4.1 (3.5-5.0) g/dL Globulin 2.9 (1.7-4.1) g/dL Albumin/Globulin Ratio 1.4 (1.0-2.8) Triglycerides (35-150) mg/dL Cholesterol (140-199) mg/dL LDL Cholesterol, Calc (<100) mg/dL HDL Cholesterol (40-60) mg/dL Lipase 93 (23-300) U/L Procalcitonin (<0.5) ng/mL SARS-CoV-2 (PCR) (Negative) 12/29/20 12/29/20 12/29/20 Range/Units 10:00 10:00 10:00 WBC (4.5-11.0) X10^3/uL RBC (4.5-5.9) X10^6/uL Hgb (13.5-17.5) g/dL Hct (41-53) % MCV (80-100) fL MCH (26-34) PG MCHC (30-36) % RDW (11.6-14.8) % Plt Count (150-400) X10^3/uL Neut % (Auto) (50-75) % Lymph % (Auto) (25-40) % Nicollet % (Auto) (3-14) % Eos % (Auto) (2-4) % Baso % (Auto) (0-2) % Neut # (Auto) (4689-7659) /uL Lymph # (Auto) (5652-7424) /uL Nicol[place] # (Auto) (0-900) /uL Eos # (Auto) (0-450) /uL Baso # (Auto) (0-100) /uL PT (10.1-12.7) SECONDS INR (0.9-1.3) APTT (26.4-36.2) SECONDS D-Dimer (<230) ng/mL Sodium (137-145) mmol/L Potassium (3.4-5.1) mmol/L Chloride (98-107) mmol/L Carbon Dioxide (22-32) mmol/L BUN (9-20) mg/dL Creatinine (0.66-1.25) mg/dL Estimated GFR (>60) mL/min BUN/Creatinine Ratio (6-22) Glucose (80-110) mg/dL Hemoglobin A1c (4.0-6.0) % Lactate 1.8 (0.7-2.1) mmol/L Calcium (8.4-10.2) mg/dL Total Bilirubin (0.2-1.3) mg/dL AST (17-59) IU/L ALT (<50) IU/L Alkaline Phosphatase (38-126) U/L Total Creatine Kinase 20 L (55-170) U/L CK-MB (CK-2) TNP CK-MB (CK-2) Rel Index TNP Troponin I 0.096 H (0.01-0.034) ng/mL Total Protein (6.3-8.2) g/dL Albumin (3.5-5.0) g/dL Globulin (1.7-4.1) g/dL Albumin/Globulin Ratio (1.0-2.8) Triglycerides (35-150) mg/dL Cholesterol (140-199) mg/dL LDL Cholesterol, Calc (<100) mg/dL HDL Cholesterol (40-60) mg/dL Lipase (23-300) U/L Procalcitonin 0.27 (<0.5) ng/mL SARS-CoV-2 (PCR) (Negative) 12/29/20 12/29/20 12/29/20 Range/Units 10:00 10:00 10:00 WBC (4.5-11.0) X10^3/uL RBC (4.5-5.9) X10^6/uL Hgb (13.5-17.5) g/dL Hct (41-53) % MCV (80-100) fL MCH (26-34) PG MCHC (30-36) % RDW (11.6-14.8) % Plt Count (150-400) X10^3/uL Neut % (Auto) (50-75) % Lymph % (Auto) (25-40) % Nicollet % (Auto) (3-14) % Eos % (Auto) (2-4) % Baso % (Auto) (0-2) % Neut # (Auto) (9095-8485) /uL Lymph # (Auto) (2953-8144) /uL Nicollet # (Auto) (0-900) /uL Eos # (Auto) (0-450) /uL Baso # (Auto) (0-100) /uL PT (10.1-12.7) SECONDS INR (0.9-1.3) APTT (26.4-36.2) SECONDS D-Dimer 741 H (<230) ng/mL Sodium (137-145) mmol/L Potassium (3.4-5.1) mmol/L Chloride (98-107) mmol/L Carbon Dioxide (22-32) mmol/L BUN (9-20) mg/dL Creatinine (0.66-1.25) mg/dL Estimated GFR (>60) mL/min BUN/Creatinine Ratio (6-22) Glucose (80-110) mg/dL Hemoglobin A1c 7.5 H (4.0-6.0) % Lactate (0.7-2.1) mmol/L Calcium (8.4-10.2) mg/dL Total Bilirubin (0.2-1.3) mg/dL AST (17-59) IU/L ALT (<50) IU/L Alkaline Phosphatase (38-126) U/L Total Creatine Kinase (55-170) U/L CK-MB (CK-2) CK-MB (CK-2) Rel Index Troponin I (0.01-0.034) ng/mL Total Protein (6.3-8.2) g/dL Albumin (3.5-5.0) g/dL Globulin (1.7-4.1) g/dL Albumin/Globulin Ratio (1.0-2.8) Triglycerides 181 H (35-150) mg/dL Cholesterol 203 H (140-199) mg/dL LDL Cholesterol, Calc 111 H (<100) mg/dL HDL Cholesterol 56 (40-60) mg/dL Lipase (23-300) U/L Procalcitonin (<0.5) ng/mL SARS-CoV-2 (PCR) (Negative) 12/29/20 Range/Units 12:37 WBC (4.5-11.0) X10^3/uL RBC (4.5-5.9) X10^6/uL Hgb (13.5-17.5) g/dL Hct (41-53) % MCV (80-100) fL MCH (26-34) PG MCHC (30-36) % RDW (11.6-14.8) % Plt Count (150-400) X10^3/uL Neut % (Auto) (50-75) % Lymph % (Auto) (25-40) % Nicollet % (Auto) (3-14) % Eos % (Auto) (2-4) % Baso % (Auto) (0-2) % Neut # (Auto) (8922-8080) /uL Lymph # (Auto) (8017-0838) /uL Nicollet # (Auto) (0-900) /uL Eos # (Auto) (0-450) /uL Baso # (Auto) (0-100) /uL PT (10.1-12.7) SECONDS INR (0.9-1.3) APTT (26.4-36.2) SECONDS D-Dimer (<230) ng/mL Sodium (137-145) mmol/L Potassium (3.4-5.1) mmol/L Chloride (98-107) mmol/L Carbon Dioxide (22-32) mmol/L BUN (9-20) mg/dL Creatinine (0.66-1.25) mg/dL Estimated GFR (>60) mL/min BUN/Creatinine Ratio (6-22) Glucose (80-110) mg/dL Hemoglobin A1c (4.0-6.0) % Lactate (0.7-2.1) mmol/L Calcium (8.4-10.2) mg/dL Total Bilirubin (0.2-1.3) mg/dL AST (17-59) IU/L ALT (<50) IU/L Alkaline Phosphatase (38-126) U/L Total Creatine Kinase (55-170) U/L CK-MB (CK-2) CK-MB (CK-2) Rel Index Troponin I (0.01-0.034) ng/mL Total Protein (6.3-8.2) g/dL Albumin (3.5-5.0) g/dL Globulin (1.7-4.1) g/dL Albumin/Globulin Ratio (1.0-2.8) Triglycerides (35-150) mg/dL Cholesterol (140-199) mg/dL LDL Cholesterol, Calc (<100) mg/dL HDL Cholesterol (40-60) mg/dL Lipase (23-300) U/L Procalcitonin (<0.5) ng/mL SARS-CoV-2 (PCR) Negative (Negative) Point of Care Testing Glucose POC 221 Urine Dip Bedside Urine Glucose Negative Bedside Urine Bilirubin - Negative Bedside Urine Ketone - Negative Urine Specific [place] 1.015 Bedside Urine Occult Blood - Negative Bedside Urine pH 5.5 Bedside Urine Protein - Negative Bedside Urine Urobilinogen - Negative Bedside Urine Nitrite - Negative Bedside Urine Leukocytes - Negative Esterase Imaging Data CT scan - head: Radiologist's Impression: PROCEDURE: CT HEAD/BRAIN WO CON INDICATIONS: dizzy TECHNIQUE: Noncontrast 4.5 mm thick angled axial sections acquired from the foramen magnum to the vertex, with coronal and sagittal reformats. For radiation dose reduction, the following was used: automated exposure control, adjustment of mA and/or kV according to patient size. COMPARISON: None. FINDINGS: Image quality: Excellent. CSF spaces: Basal cisterns are patent. No extra-axial fluid collections. The ventricles are symmetric in size and shape. Brain: No intracranial bleeds or masses. There is cerebral volume loss for age, with resultant ventricular and sulcal prominence. There are periventricular and deep white matter chronic small vessel ischemic changes. 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 There is intracranial internal carotid artery atherosclerosis. Skull and face: Calvarium and visualized facial bones appear intact, without suspicious lesions. Sinuses: Patchy bilateral ethmoid opacification. IMPRESSION: 1. 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 2. No evidence acute stroke, hemorrhage, or mass. 3. Patchy bilateral ethmoid opacification. Dictated by: Marcio Arellano M.D. on 12/29/2020 at 10:4 CT scan - chest: Radiologist's Impression: PROCEDURE: CT ANGIO CHEST PE PROTOCOL INDICATIONS: high d-dimer TECHNIQUE: After the administration of intravenous contrast, 2 mm thick sections acquired from the pulmonary apices to the posterior costophrenic angles. 3-dimensional maximum intensity projection (MIP) coronal and sagittal reformats were then acquired through the thorax. For radiation dose reduction, the following was used: automated exposure control, adjustment of mA and/or kV according to patient size. COMPARISON: None. FINDINGS: Image quality: Excellent. Pulmonary arteries: Pulmonary arteries are normal in size, and demonstrate no intraluminal filling defects to suggest central pulmonary embolism. Lungs and pleura: Lungs are clear. No pleural effusions or pneumothorax. Central and peripheral airways are patent. Mediastinum: Heart size is normal, without pericardial effusion. No mediastinal or hilar adenopathy. Thoracic aorta is normal in caliber and enhancement. Esophagus is normal in caliber, without hiatal hernia. Bones and chest wall: No suspicious bony lesions. Ribs and thoracic spine appear intact throughout. Thyroid gland appears normal where well seen. No axillary or supraclavicular adenopathy. Abdomen: Visualized upper abdominal solid organs appear normal in the early arterial phase of enhancement. Small calcified gallstones within the gallbladder lumen. No sign of acute cholecystitis or biliary obstruction. IMPRESSION: No pulmonary embolus found. No pneumonia identified note is made of several small gallstones, peripherally calcified, within the gallbladder lumen. Dictated by: Rodrigue Barger M.D. on 12/29/2020 at 12:22 ECG Data Attestation: I personally reviewed and interpreted this ECG as follows: Prior ECG tracings: not available for review Interpretation: Normal sinus rhythm rate 105 year interval 124 QRS 108 QTC 531 Q-wave noted in lead 3 with S-wave in lead 1 MDM Narrative Medical decision making narrative: Patient's symptoms have resolved. This time his abdomen is soft nontender he is having no biliary symptoms will hold off imaging at this time waiting for blood work. Glucose is in the 200s. Based on EKG and indeterminate troponin work CT for PE. His CT head does show old cerebellar infarct and he is still having symptoms of dizziness. Questionable continue cerebellar infarct. Patient initial symptoms of dizziness improved he has a NIH of 0. When he returned from CT he said his dizziness returned but he is still able to open is eyes communicate with us, appears comfortable. At this time my for acute CVA is low and with improving symptoms not a candidate for tPA. CT scan for PE is negative. Dr. her amin updated patient's symptoms test results and happily the patient for observation for TIA rule out and cardiac workup. I discussed all findings with the patient and spouse, Education has been performed regarding treatment plan, diagnosis, warning signs and symptoms and all concerns have been addressed. Verbally agree with and understood all of the above. Discharge Plan Departure Patient Disposition: Admitted as Observation Clinical Impression: Brain TIA, Elevated troponin Admit Date/Time: 12/29/20 13:20 Admit Provider: Norberto Hunt
[2020-12-29 10:35] LABS: Procalcitonin 0.27 ng/mL (<0.5)
[2020-12-29 10:47] LABS: Creatine Kinase 20 U/L (55-170)
[2020-12-29 11:00] LABS: Troponin I 0.096 ng/mL (0.01-0.034)
[2020-12-29 11:05] LABS: D Dimer 741 ng/mL (<230)
--- NOTE | 2020-12-29 11:59 | DI.CT.S_ITS ---
PROCEDURE: CT ANGIO CHEST PE PROTOCOL INDICATIONS: high d-dimer TECHNIQUE: After the administration of intravenous contrast, 2 mm thick sections acquired from the pulmonary apices to the posterior costophrenic angles. 3-dimensional maximum intensity projection (MIP) coronal and sagittal reformats were then acquired through the thorax. For radiation dose reduction, the following was used: automated exposure control, adjustment of mA and/or kV according to patient size. COMPARISON: None. FINDINGS: Image quality: Excellent. Pulmonary arteries: Pulmonary arteries are normal in size, and demonstrate no intraluminal filling defects to suggest central pulmonary embolism. Lungs and pleura: Lungs are clear. No pleural effusions or pneumothorax. Central and peripheral airways are patent. Mediastinum: Heart size is normal, without pericardial effusion. No mediastinal or hilar adenopathy. Thoracic aorta is normal in caliber and enhancement. Esophagus is normal in caliber, without hiatal hernia. Bones and chest wall: No suspicious bony lesions. Ribs and thoracic spine appear intact throughout. Thyroid gland appears normal where well seen. No axillary or supraclavicular adenopathy. Abdomen: Visualized upper abdominal solid organs appear normal in the early arterial phase of enhancement. Small calcified gallstones within the gallbladder lumen. No sign of acute cholecystitis or biliary obstruction. IMPRESSION: No pulmonary embolus found. No pneumonia identified note is made of several small gallstones, peripherally calcified, within the gallbladder lumen. Dictated by: Rodrigue Barger M.D. on 12/29/2020 at 12:22 Approved by: Rodrigue Barger M.D. on 12/29/2020 at 12:24
--- NOTE | 2020-12-29 13:05 | PC.NURSE ---
Dr. Singh support made aware that patient would not be at 1500 appointment.
[2020-12-29] MEDS: ASPIRIN 81 MG CHEW TAB 324 MG PO (13:26)
--- NOTE | 2020-12-29 13:48 | DI.ECHO.S_ITS ---
[place] [facility] +---------+ : : [address] : : : : [id number] : : : : Phone: [phone]+ Echocardiogram Report + + :Name: STEPHANIE LOYOLA Study Date: 12/30/2020 Height: 69 in : :[facility] ReadingLocation: Weight: 195 lb : : Gender: Male BSA: 2.0 m2 : :: 1960 Age: 60 yrs BP: 131/68 mmHg: :Reason For Study: TIA : :Ordering Physician: MILLIE, : :ALYSSA Performed By: Destiney Thurman : :Referring: ALYSSA PINTO : + + Interpretation Summary Sinus tachycardia. Heart rate 101-109 bpm. Left ventricle demonstrates normal size with mild concentric left ventricular hypertrophy. Ejection fraction is 65-70%. Normal chamber sizes. No significant valvular abnormalities. No source of embolism found. In particular there is no PFO based on bubble study. There is no prior echo available for comparison Procedure: A two-dimensional transthoracic echocardiogram with color flow and Doppler was performed. The study quality was technically adequate. There is no prior echocardiogram noted for this patient. A saline contrast injection was performed to assess for cardiac shunting. The patient was in sinus tachycardia with heart rates between 101-109 bpm during the exam. Left Ventricle: The left ventricle is normal in size. There is mild concentric left ventricular hypertrophy. The ejection fraction is estimated to be 65-70%. Diastolic parameters suggest probable normal left ventricular diastolic function and normal filling pressures. Right Ventricle: The right ventricle is normal in size and function. Atria: The left atrial size is normal. Right atrial size is normal. There is no Doppler evidence for an interatrial shunt. Injection of contrast documented no interatrial shunt. Mitral Valve: The mitral valve is normal in structure and function. There is trace mitral regurgitation. Aortic Valve: The aortic valve is trileaflet. The aortic valve opens well. There is no aortic valve stenosis. No aortic regurgitation is present. Tricuspid Valve: The tricuspid valve is normal in structure and function. There is trace tricuspid regurgitation. Pulmonic Valve: The pulmonic valve is not well visualized. There is no pulmonic valvular regurgitation. Great Vessels: The aortic root is normal size. The dimensions of the ascending aorta are normal. The IVC is of normal diameter and collapses greater than 50% with a sniff. This suggests a low right atrial pressure of 3 mm Hg. Pericardium/ Pleura There is no pericardial effusion. There is no pleural effusion. MMode/2D Measurements & Calculations LVIDd: 3.8 cm LVOT diam: 2.2 cm LVIDs: 2.6 cm Ao root diam: 3.5 cm FS: 29.8 % asc Aorta Diam: 3.1 cm EPSS: 0.81 cm IVSd: 1.2 cm LVPWd: 1.2 cm LV mike. diameter/BSA (cm/m^2): 1.8 LV sys. diameter/BSA (cm/m^2): 1.3 LA A2 area: 16.3 cm2 RA long axis: 4.5 cm LA A4 area: 14.6 cm2 RA area: 11.5 cm2 LA length (vol): 4.9 cm RA vol: 25.4 ml LA vol: 41.4 ml RA : 12.4 ml/m2 LA vol index: 20.3 ml/m2 IVC diam: 1.4 cm RVD1 (basal): 3.5 cm TAPSE: 1.7 cm Doppler Measurements & Calculations Ao V2 max: 121.9 cm/sec LVOT Max Kasi: 123.9 cm/sec Ao V2 mean: 98.9 cm/sec LV V1 max P.1 mmHg Ao max P.9 mmHg LV V1 VTI: 18.9 cm Ao mean P.1 mmHg JAYANT(I,D): 3.5 cm2 Ao V2 VTI: 21.2 cm JAYANT(V,D): 3.9 cm2 sev ratio: 0.89 JAYANT indexed to BSA (cm^2/m^2): 1.7 MV E max kasi: 58.6 cm/sec PA V2 max: 96.6 cm/sec MV A max kasi: 98.4 cm/sec PA V2 mean: 73.8 cm/sec MV E/A: 0.60 PA mean P.3 mmHg Med Peak E' Kasi: 6.9 cm/sec PA pr(Accel): 57.2 mmHg E/E' med: 8.5 MV dec time: 0.30 sec SV(LVOT): 73.3 ml Electronically signed by: Erica Goode M.D. on Reading Physician:12/30/2020 12:27 PM
[2020-12-29 13:53] LABS: COVID19 - ADMIT (NP swab/PCR) Negative (Negative)
--- NOTE | 2020-12-29 14:09 | DI.MRI.S_ITS ---
PROCEDURE: MR STROKE Pre- and post-contrast brain MRI, non-contrast brain MR angiogram, pre- and postcontrast neck MR angiogram INDICATIONS: TIA TECHNIQUE: Brain: Noncontrast axial T1 spin echo, axial T2 fast spin echo, sagittal and axial FLAIR, coronal T2 fast spin echo, axial gradient echo, axial diffusion and ADC through the brain. After the administration of contrast, axial 3D VIBE of the cranial vasculature and brain. Brain MRA: Non-contrast 3-D time of flight MR angiogram, with multiple aaanyeo-lhxwmmnya-ppxlmwlpsb (MIP) reformats performed. Neck MRA: Axial and sagittal TruFISP through the neck. Coronal dynamic MR angiogram during administration of contrast in the arterial and venous phases, with 3-dimenstional wamemet-wamnsauaa-gqqukozenp (MIP) reformats constructed from subtraction images. COMPARISON: [facility], CT, CT HEAD/BRAIN WO CON, 12/29/2020, 10:38. FINDINGS: Image quality: Excellent. BRAIN: CSF spaces: Ventricles are normal in size and shape. Basal cisterns are patent. No extra-axial fluid collections. Brain: No intracranial bleeds or mass effects. Jalloh-white matter interface is normal. Diffusion weighted images show no acute ischemic insults. Brainstem appears normal. Normal intravascular flow voids are present. No abnormal intracranial enhancement. Skull and face: Calvarial marrow signal is normal. Orbits appear normal. Sinuses: Patchy bilateral ethmoid opacification. Minimal right maxillary sinus air-fluid level. Right maxillary sinus mucous retention cyst. BRAIN MR ANGIOGRAM: Anterior circulation: Intracranial internal carotid arteries are normal in size and enhancement. The flow within the paired anterior cerebral arteries is normal and symmetric. The flow within the middle cerebral arteries is normal and symmetric. The anterior communicating artery is seen. No stenoses, occlusions, or aneurysms. Posterior circulation: The visualized portions of the vertebral arteries demonstrate normal caliber, and join to form a normal appearing basilar artery. The flow within the posterior cerebral arteries is normal and symmetric. No stenoses, occlusions, or aneurysms. NECK MR ANGIOGRAM: Carotids: Great vessels demonstrate a conventional anatomy as they arise from the aortic arch. The origins of the common carotid arteries appear patent. The calibers and courses of both common carotid arteries are normal. The bifurcation regions appear normal bilaterally. The internal carotid arteries demonstrate normal course and caliber. Posterior circulation: The origins of the vertebral arteries appear patent. More superior portions of both vertebral arteries demonstrate normal course and caliber, and join to form a normal appearing basilar artery. Miscellaneous: Subclavian arteries appear patent. Pre-contrast images through the neck show no soft tissue abnormalities. IMPRESSION: BRAIN MRI: 1. No evidence acute stroke, hemorrhage, or mass. 2. Chronic bilateral ethmoid disease, minimal acute right maxillary sinus disease. BRAIN MR ANGIOGRAM: Unremarkable. No stenosis, aneurysm, or occlusion. NECK MR ANGIOGRAM: Unremarkable. Widely patent internal carotids. Dictated by: Marcio Arellano M.D. on 12/29/2020 at 15:58 Approved by: Mracio Arellano M.D. on 12/29/2020 at 16:06
--- NOTE | 2020-12-29 15:30 | PM.HP.1 ---
History of Present Illness History of Present Illness Date Patient Seen: 12/29/20 Time Patient Seen: 15:15 Date of Onset of Symptoms: 12/29/20 Chief complaint: severe vertigo 45 minutes/gall bladder attack Narrative: Patient is 60-year-old male with history diabetes, hypertension presents with complaint acute dizziness. Around 8:15 a.m. patient noticed he was dizzy with spinning sensation and difficulty keeping his balance. Symptoms lasted about 45 minutes. He had another episode which started while he was in CT machine which lasted about an hour. He denies loss of vision, slurred speech, numbness or tingling in extremities, chest pain or palpitations. 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 Since then he has had intermittent mild symptoms lasting about 10 seconds. 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 Patient states his blood pressure has been very well controlled. His last A1c was above 8. In the ED, he was normotensive. Labs showed elevated glucose 280 and elevated D-dimer 741. Troponin was intermediate at 0.096. EKG showed sinus tachycardia with incomplete right bundle branch block and prolonged QTC of 531. Head CT showed old small right cerebellar CVA. Chest CTA showed no evidence of PE or pneumonia. Mention was made of several small gallstones retained in the gallbladder. He does complain of several episodes of abdominal distension and right upper quadrant pain which has been diagnosed in the past as gallbladder colic. He states that last weekend he had another major prolonged severe episode of abdominal pain. He has not had any abdominal discomfort in the last couple of days however. Family history negative for CVA. Social history: . Nonsmoker. Has 1 alcohol drink 3 times a week. Patient History Medical History (Updated 12/29/20 @ 17:21 by Norberto Hunt MD) Cholelithiasis Chronic back pain (~1975) Diverticular disease (~2015) Essential hypertension (~2010) Foot pain (~2010) Herpes (~1976) Mixed hyperlipidemia (10/03/17) Tinnitus Type 2 diabetes mellitus without complication (10/03/17) Vertigo (~2018) Surgical History Anesthesia History of dental surgery (~2018) History of toe surgery (~2015) Status post LASIK surgery of both eyes (~1997) Family & Social History Family History Father Hypertension Mother Dementia Hospice care Safety & Behavioral: Feels Safe in Current Yes Environment Been Physically Hurt or No Threatened By a Person Tobacco & Substance use: Smoking Status Never smoker Substance Use Type does not use Meds Home Medications and Allergies Home Medications Medication Instructions Recorded Confirmed Type sildenafil (pulm.hypertension) 20 20 mg PO ONCE #30 tab 05/12/19 12/29/20 Rx mg tablet metformin 500 mg tablet 1,000 mg PO BID #45 tab 10/28/20 12/29/20 Rx zolpidem 5 mg tablet 5 mg PO HSP PRN #30 tab 11/01/20 12/29/20 Rx glipizide 10 mg tablet, extended 10 mg PO BID #180 tab 12/09/20 12/29/20 Rx release 24 hr empagliflozin [Jardiance] 25 mg PO BEDTIME 12/29/20 12/29/20 History gabapentin 100 mg PO BEDTIME 12/29/20 12/29/20 History lisinopril 10 mg PO BEDTIME 12/29/20 12/29/20 History Allergies Allergy/AdvReac Type Severity Reaction Status Date / Time No Known Drug Allergies Allergy Verified 12/29/20 13:10 Review of Systems Review of Systems ROS: Yes All systems reviewed with the patient and are negative except as otherwise documented Exam Vital Signs (past 8 hours): - 12/29/20 09:25 12/29/20 09:53 12/29/20 10:00 Temperature 97.8 F Pulse Rate 116 H 105 H 108 H Respiratory Rate 17 14 Blood Pressure 108/79 105/69 Pulse Oximetry 97 96 95 12/29/20 10:30 12/29/20 10:42 12/29/20 11:00 Temperature Pulse Rate 100 H 99 H 93 H Respiratory Rate 16 Blood Pressure 107/66 135/86 108/71 Pulse Oximetry 96 98 96 12/29/20 12:18 12/29/20 12:30 12/29/20 13:00 Temperature Pulse Rate 98 H 98 H 106 H Respiratory Rate 25 H 25 H 24 Blood Pressure 119/76 112/73 126/79 Pulse Oximetry 97 97 97 12/29/20 13:30 12/29/20 14:00 Temperature Pulse Rate 100 H 99 H Respiratory Rate 22 20 Blood Pressure 125/74 121/73 Pulse Oximetry 99 99 Oxygen Delivery Method Room Air Narrative Exam Narrative: General: Alert very pleasant male in no acute distress HEENT: Pupils equal and reactive to light, EOMI, face symmetric Neck: Supple without lymphadenopathy Lungs: Clear to auscultation Heart: Normal S1 and S2, regular rate and rhythm, no murmur Abdomen: Soft, nontender, no HSM Extremities: No edema Neurological: A and O x3, speech fluent without slurring or word-finding difficulties, txwnnn-[id number] intact, fvat-hd-hayd intact, no pronator drift or leg drift Objective Labs Result Diagrams: 12/29/20 10:00 12/29/20 10:00 Labs: Laboratory Results - last 24 hr 12/29/20 12/29/20 12/29/20 10:00 10:00 10:00 WBC 10.0 RBC 5.63 Hgb 17.2 Hct 50.9 MCV 90.4 MCH 30.6 MCHC 33.9 RDW 13.9 Plt Count 152 Neut % (Auto) 66.2 Lymph % (Auto) 20.6 L Humphreys % (Auto) 10.3 Eos % (Auto) 2.4 Baso % (Auto) 0.5 Neut # (Auto) 6600 Lymph # (Auto) 2100 Humphreys # (Auto) 1000 H Eos # (Auto) 200 Baso # (Auto) 100 PT 11.8 INR 1.0 APTT 33 D-Dimer Sodium 134 L Potassium 4.3 Chloride 102 Carbon Dioxide 21 L BUN 30 H Creatinine 1.11 Estimated GFR > 60.0 BUN/Creatinine Ratio 27.0 H Glucose 280 H Lactate Calcium 9.9 Total Bilirubin 0.7 AST 18 ALT 15 Alkaline Phosphatase 80 Total Creatine Kinase CK-MB (CK-2) CK-MB (CK-2) Rel Index Troponin I Total Protein 7.0 Albumin 4.1 Globulin 2.9 Albumin/Globulin Ratio 1.4 Lipase 93 Procalcitonin SARS-CoV-2 (PCR) 12/29/20 12/29/20 12/29/20 10:00 10:00 10:00 WBC RBC Hgb Hct MCV MCH MCHC RDW Plt Count Neut % (Auto) Lymph % (Auto) Humphreys % (Auto) Eos % (Auto) Baso % (Auto) Neut # (Auto) Lymph # (Auto) Humphreys # (Auto) Eos # (Auto) Baso # (Auto) PT INR APTT D-Dimer Sodium Potassium Chloride Carbon Dioxide BUN Creatinine Estimated GFR BUN/Creatinine Ratio Glucose Lactate 1.8 Calcium Total Bilirubin AST ALT Alkaline Phosphatase Total Creatine Kinase 20 L CK-MB (CK-2) TNP CK-MB (CK-2) Rel Index TNP Troponin I 0.096 H Total Protein Albumin Globulin Albumin/Globulin Ratio Lipase Procalcitonin 0.27 SARS-CoV-2 (PCR) 12/29/20 12/29/20 10:00 12:37 WBC RBC Hgb Hct MCV MCH MCHC RDW Plt Count Neut % (Auto) Lymph % (Auto) Humphreys % (Auto) Eos % (Auto) Baso % (Auto) Neut # (Auto) Lymph # (Auto) Humphreys # (Auto) Eos # (Auto) Baso # (Auto) PT INR APTT D-Dimer 741 H Sodium Potassium Chloride Carbon Dioxide BUN Creatinine Estimated GFR BUN/Creatinine Ratio Glucose Lactate Calcium Total Bilirubin AST ALT Alkaline Phosphatase Total Creatine Kinase CK-MB (CK-2) CK-MB (CK-2) Rel Index Troponin I Total Protein Albumin Globulin Albumin/Globulin Ratio Lipase Procalcitonin SARS-CoV-2 (PCR) Negative Assessment & Plan Assessment & Plan narrative: 1. Possible TIA -patient presents with acute vertigo lasting 45 minutes, differential includes TIA but this is more likely peripheral related vertigo since patient had no other associated neurological deficits and he has history of BPV -head CT showed old small right cerebellar CVA -MR stroke protocol showed old right superior cerebellar CVA, no acute stroke, no intracerebral or carotid occlusion -TTE pending -lipid panel: Total 203, LDL 111, HDL 56, triglycerides 181 -continue aspirin 81 mg q.d. -atorvastatin 20 mg HS 2. Indeterminate troponin elevation -EKG showed sinus tachycardia, incomplete RBBB, prolonged QTC of 531, no acute ST or T-wave abnormality -repeat serial troponin 3. Type 2 diabetes -elevated glucose 280 on labs -patient states he does not monitor home glucose -hemoglobin A1c is 7.5% fair control -continue patient's oral medications except hold metformin for [address] contrast (hold until dinner 12/31) 4. Hypertension, chronic -continue lisinopril 10 mg q.d. per home routine 5. Symptomatic gallstone disease -patient with several major episodes of abdominal distension and RUQ pain but currently asymptomatic -patient will follow-up with PCP for surgery referral for kervin singleton Admit: Hospital observation
[2020-12-29 15:41] LABS: Hemoglobin A1C% w Est Avg Glu 7.5 % (4.0-6.0)
[2020-12-29] MEDS: INSULIN ASPART 100 UNIT/ML INSULN PEN SUBCUT (16:48)
[2020-12-29 17:07] LABS: Cholesterol 203 mg/dL (140-199); HDL Cholesterol 56 mg/dL (40-60); LDL Cholesterol Calculated 111 mg/dL (<100); Triglycerides 181 mg/dL (35-150)
[2020-12-29] MEDS: glipiZIDE XL 5 MG TAB 10 MG PO (17:14)
[2020-12-29 18:40] LABS: Troponin I 0.082 ng/mL (0.01-0.034)
[2020-12-29] MEDS: lisinopriL 10 MG TABLET PO (21:28)
[2020-12-29] MEDS: GABAPENTIN 100 MG CAPSULE PO (21:28)
[2020-12-29] MEDS: ZOLPIDEM 5 MG TABLET PO (21:35)
[2020-12-30] VITALS: BP 104/52; PULSE 105; RESP 18; TEMP 36.4; O2SAT 95
[2020-12-30 04:00] VITALS: BP 131/68; PULSE 105; RESP 18; TEMP 36.5; O2SAT 95
[2020-12-30 08:00] VITALS: BP 115/58; PULSE 103; RESP 16; TEMP 36.5; O2SAT 96
[2020-12-30] MEDS: SODIUM CHLORIDE 0.9% FLUSH 10 ML IV (09:03)
[2020-12-30] MEDS: glipiZIDE XL 5 MG TAB 10 MG PO (09:03)
[2020-12-30] MEDS: ASPIRIN EC 81 MG TABLET PO (09:03)
--- NOTE | 2020-12-30 10:24 | PM.DS.1 ---
History of Present Illness History of Present Illness Date Patient Seen: 12/30/20 Time Patient Seen: 10:24 Chief complaint: severe vertigo 45 minutes/gall bladder attack Narrative: Per Dr. Hagen, Patient is 60-year-old male with history diabetes, hypertension presents with complaint acute dizziness. Around 8:15 a.m. patient noticed he was dizzy with spinning sensation and difficulty keeping his balance. Symptoms lasted about 45 minutes. He had another episode which started while he was in CT machine which lasted about an hour. He denies loss of vision, slurred speech, numbness or tingling in extremities, chest pain or palpitations. 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 Since then he has had intermittent mild symptoms lasting about 10 seconds. 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 Patient states his blood pressure has been very well controlled. His last A1c was above 8. In the ED, he was normotensive. Labs showed elevated glucose 280 and elevated D-dimer 741. Troponin was intermediate at 0.096. EKG showed sinus tachycardia with incomplete right bundle branch block and prolonged QTC of 531. Head CT showed old small right cerebellar CVA. Chest CTA showed no evidence of PE or pneumonia. Mention was made of several small gallstones retained in the gallbladder. He does complain of several episodes of abdominal distension and right upper quadrant pain which has been diagnosed in the past as gallbladder colic. He states that last weekend he had another major prolonged severe episode of abdominal pain. He has not had any abdominal discomfort in the last couple of days however. Family history negative for CVA. Social history: . Nonsmoker. Has 1 alcohol drink 3 times a week. Discharge Providers Provider Date of admission: 12/29/20 13:20 Discharge Date: 12/30/20 Primary care physician: Praneeth Singh MD Discharge provider: Matt Granger DO Summary Hospital Course Discharge Diagnosis: 1. likely peripheral Vertigo, acute on chronic, present on admission, possible TIA. 2. Elevated troponin, improved 3. Type 2 diabetes, chronic 4. Hypertension, chronic 5. Symptomatic gallstone disease 6. history of R cerebellar CVA, not previously known Hospital Course: This is a 60-year-old male with the past medical history of hypertension, type 2 diabetes, and recent symptomatic gallstones as well as a history of peripheral vertigo who was admitted after an acute episode of vertigo lasting around [address] head in the emergency room showed an old small right cerebellar CVA, MR stroke protocol did not show any acute infarcts but did confirm the old cerebellar lesion. Echocardiogram was unremarkable. Patient had another episode of vertigo lasting for approximately an hour after his CT scan, but symptoms did not recur following. These are likely the result of peripheral vertigo but could be related to a TIA given his imaging which showed an old cerebellar infarct. The patient was able to tolerate a diet and ambulate prior to discharge. He already has a vestibular therapist as an outpatient and plans to follow-up with them shortly. He did have a mildly elevated troponin that down trended on repeat. Discussed secondary prevention including daily aspirin and statin medications. Patient was willing to resume his daily aspirin, but wished to discuss statin therapy with his primary care provider due to previous intolerance of this medication. Exam Vital Signs (past 8 hours): - 12/30/20 04:00 12/30/20 08:00 Temperature 97.7 F 97.7 F Pulse Rate 105 H 103 H Respiratory Rate 18 16 Blood Pressure 131/68 115/58 L Pulse Oximetry 95 96 Oxygen Delivery Method Room Air Oxygen Flow Rate 0 Narrative Exam Narrative: General: Alert very pleasant male in no acute distress HEENT: Pupils equal and reactive to light, EOMI, face symmetric Neck: Supple without lymphadenopathy Lungs: Clear to auscultation bilaterally Heart: Normal S1 and S2, regular rate and rhythm, no murmur Abdomen: Soft, nontender, no HSM Extremities: No edema Neurological: A and O x3, speech fluent without slurring or word-finding difficulties, no focal deficits Objective Labs Result Diagrams: 12/29/20 10:00 12/29/20 10:00 Labs: Laboratory Results - last 24 hr 12/29/20 12/29/20 12/29/20 10:00 10:00 10:00 D-Dimer 741 H Hemoglobin A1c Total Creatine Kinase 20 L CK-MB (CK-2) TNP CK-MB (CK-2) Rel Index TNP Troponin I 0.096 H Triglycerides Cholesterol LDL Cholesterol, Calc HDL Cholesterol Procalcitonin 0.27 SARS-CoV-2 (PCR) 12/29/20 12/29/20 12/29/20 10:00 10:00 12:37 D-Dimer Hemoglobin A1c 7.5 H Total Creatine Kinase CK-MB (CK-2) CK-MB (CK-2) Rel Index Troponin I Triglycerides 181 H Cholesterol 203 H LDL Cholesterol, Calc 111 H HDL Cholesterol 56 Procalcitonin SARS-CoV-2 (PCR) Negative 12/29/20 17:56 D-Dimer Hemoglobin A1c Total Creatine Kinase CK-MB (CK-2) CK-MB (CK-2) Rel Index Troponin I 0.082 H Triglycerides Cholesterol LDL Cholesterol, Calc HDL Cholesterol Procalcitonin SARS-CoV-2 (PCR) [facility] Medical History (Updated 12/29/20 @ 17:21 by Norberto Hunt MD) Cholelithiasis Chronic back pain (~1975) Diverticular disease (~2015) Essential hypertension (~2010) Foot pain (~2010) Herpes (~1976) Mixed hyperlipidemia (10/03/17) Tinnitus Type 2 diabetes mellitus without complication (10/03/17) Vertigo (~2018) Surgical History Anesthesia History of dental surgery (~2018) History of toe surgery (~2015) Status post LASIK surgery of both eyes (~1997) Family History Father Hypertension Mother Dementia Hospice care Social History household members: spouse Smoking Status: Never smoker Discharge Plan Discharge Plan Patient Disposition: Home Provider Discharge Comment: You were admitted to the hospital after an episode of dizziness. You were found to have an old stroke. No acute worsening. This is likely vertigo. You can try meclizine at home, or continue with vestibular therapy. Recommend a baby aspirin a day and a statin for stroke prevention, but you opted to discuss statin with your PCP. Discharge orders & Medications Prescriptions: New aspirin 81 mg Tablet,Delayed Release (Dr/Ec) 81 mg PO DAILY 30 Days Qty: 30 RF: 0 Continued glipizide 10 mg tablet extended release 24hr 10 mg PO BID Qty: 180 RF: 2 sildenafil (pulm.hypertension) 20 mg tablet 20 mg PO ONCE Qty: 30 RF: 5 metformin 500 mg tablet 1,000 mg PO BID Qty: 45 RF: 0 zolpidem 5 mg tablet 5 mg PO HSP PRN (Reason: insomnia) Qty: 30 RF: 0 gabapentin 100 mg capsule 100 mg PO BEDTIME RF: 0 lisinopril 10 mg tablet 10 mg PO BEDTIME RF: 0 Jardiance 25 mg tablet 25 mg PO BEDTIME RF: 0 Follow up/Referrals: Praneeth Singh MD [Primary Care Provider] - Diet/Activity/Treatments Diet: Diet as Tolerated and Carb-consistent/Diabetic Activity: As tolerated Visit Report/Discharge Packet Instructions: How to Check Your Blood Glucose, Learn Your Diabetic ABCs, Type 2 Diabetes, How to Use an Insulin Pen Discharge Data Primary Care Provider: Praneeth Singh Attending Provider: Norberto Hunt
--- NOTE | 2020-12-30 11:12 | CM.IDA ---
Initial DCP Assessment Note Patient is a 60 yo male, resident of [place]. Patient presented w/vertigo, stroke r/o, in addition patient complained of several major episodes of abd pain. Patient being discharged today; CVA/TIA w/u showing no acute findings and patient referred to outpatient surgery service for likely lap judy PCP: Praneeth Singh Payer: CHICHO Luna Met w/patient to introduce role. Patient eager to return home, indp at base and in room. No needs identified from this CAMERON Duncan Discharge Planning/Care Management CM Discharge Assessment Start: 12/30/20 11:06 Freq: Status: Active Protocol: Document 12/30/20 11:06 CHRISTIE (Rec: 12/30/20 11:12 CHRISTIE [id number]) Discharge Planning Assessment Assigned Ink Printer CAMERON [place] DPOA/Assigned Designee Name Martita Mcclain, spouse Contact Information [phone] Advance Directives? Yes History Provided By Patient,Significant Other Prior Living Arrangements House Household Members family Type of transporation used prior to Drives own vehicle admit Independent with ADL's Yes Is patient alert and oriented? Yes Barriers to Discharge No Discharge Plan Home Transportation Arrangement Family Referrals Initiated None needed
--- NOTE | 2020-12-30 11:16 | PT.IIE ---
Surgical History (Last Reviewed 12/29/20 @ 10:39 by Tamy Mayfield DO) Anesthesia History of dental surgery (~2018) History of toe surgery (~2015) Status post LASIK surgery of both eyes (~1997) Medical History (Last Updated 12/29/20 @ 17:21 by Norberto Hunt MD) Cholelithiasis Chronic back pain (~1975) Diverticular disease (~2015) Essential hypertension (~2010) Foot pain (~2010) Herpes (~1976) Mixed hyperlipidemia (10/03/17) Tinnitus Type 2 diabetes mellitus without complication (10/03/17) Vertigo (~2018) Physical Therapy Inpatient Evaluation/Re-Eval M1 PT/OT-IP Prior Functional Status Start: 12/30/20 15:09 Freq: NEEDED Status: Active Protocol: Document 12/30/20 11:16 AB (Rec: 12/30/20 15:17 AB [id number]) Medical Review Prior Functional Status Medical History Reviewed Yes Communication able to make needs known Mobility and Gait pt stated that he is independent with all mobilities and ambulation without AD Prior Functional Level (Other details) pt stated that he had vertigo and had vestibular therapy before but stated that instead of the usual 10 sec of dizziness, this one lasted for 45 min. Social History Household Members spouse Living Arrangements House Number of Floors (Floors) Two Floors Number of Stairs To Enter/Railing? stays on main level of the house 2 steps to enter with R rail ascending has 15 steps with R rail descending to basement/laundry area; stated that he can go around the house to get into the basement and not do stairs Home Environment Standard Height Toilet,Walk in Shower Home Equipment Shower Seat without Backrest, Hand Held Shower M2 PT-IP Current Condition Start: 12/30/20 15:09 Freq: NEEDED Status: Active Protocol: Document 12/30/20 11:16 AB (Rec: 12/30/20 15:17 AB [id number]) Physical Therapy Current Condition Current Condition Evaluation Date 12/30/20 Treatment Diagnosis brain TIA; vertigo; difficulty in walking Onset Date 12/29/20 M3 PT-IP Subjective Start: 12/30/20 15:09 Freq: NEEDED Status: Active Protocol: Document 12/30/20 11:16 AB (Rec: 12/30/20 15:17 AB [email or web address]) Subjective Physical Therapy Visit Type Type Initial Evaluation Visit Start Time 11:16 Visit Stop Time 11:27 Total Visit Minutes 11 Number of [employer] Visits 0 Physical Therapy Visit Comments Patient Comments pt stated that he is feeling good and no dizziness M4 PT-IP Mobility and Gait Start: 12/30/20 15:09 Freq: NEEDED Status: Active Protocol: Document 12/30/20 11:16 AB (Rec: 12/30/20 15:17 AB [email or web address]) PT-Bed Mobility Assessment Supine to Sit Supine to Sit Independent Sit to Supine Sit to Supine Independent PT-Transfer Assessment Sit to and From Stand Sit to and from Stand Independent Equipment Transfer Assistive Device None Orthotic/Prosthetic Devices or Brace: No Gait Assessment Gait Gait Assistance Required: Independent Distance (Feet) 125 Able to Maintain Weight Bearing Status Yes During Gait Assistive Devices Assistive Device None,Gait Belt Orthotic/Prosthetic Devices or Brace: No Gait Deviations General Gait Pattern Within Normal Limits Stair Climbing Assessment Evaluation Level of Assist On Stairs Independent Devices Stair Climbing Assistive Devices None Technique/Endurance Stair Climbing Direction Ascend and Descend Stair Climbing Technique Step Over Step Number of Steps Climbed 3 Query Text: Stair Climbing Set # Repetitions (reps) 1 PT-Balance Assessment Sitting Balance and Reactions Static Sitting Balance Ability Normal Dynamic Sitting Balance Ability Normal Standing Balance and Reactions Static Standing Balance Ability Good Dynamic Standing Balance Ability Good Device Used without AD M5 PT-IP Objective Assessments Start: 12/30/20 15:09 Freq: NEEDED Status: Active Protocol: Document 12/30/20 11:16 AB (Rec: 12/30/20 15:17 AB [id number]) Orientation Orientation/Cognition Level of Alertness Alert Orientation Name,Age,Birthday,Month,Date, Year,Day of Week,Place, Situation Language Function Ability No Deficits Noted Safety Awareness Understands Safety Issues Memory Description No Deficits Noted Gross Range of Motion Lower Extremity ROM Assessment Within Functional Limits Strength Lower Extremity Strength Assessment Within Functional Limits Muscle Tone Muscle Tone WNL Yes M7 PT-IP Assessment and Plan Start: 12/30/20 15:09 Freq: NEEDED Status: Active Protocol: Document 12/30/20 11:16 AB (Rec: 12/30/20 15:17 AB [email or web address]) PT Summary Assessment and Plan Potential Rehabilitation Potential Good Status of Condition at Evaluation Stable Summary Progress Towards Goals Safe For Discharge Assessment Summary pt without any complaints and stated that he had vertigo from before but currently does not have any symptoms. pt is independent with bed mobility , transfers and ambulation without AD. informed pt to f/ u with an outpt vestibular PT if needed if pt continues to have symptoms. pt agreed and understood. No further PT intervention indicated at this time. Frequency of Treatment Frequency Of Treatment Discharge Recommendations To Nursing Amount of Assist Needed Independent Discharge Recommendations PT Discharge Recommendations Home,Outpatient PT Transportation Needs at Discharge Private Vehicle
--- NOTE | 2020-12-30 11:51 | CM.DPNOTE ---
Awaiting ride for home. Ride to arrive about 1230
--- NOTE | 2020-12-30 12:35 | PC.NURSE ---
Pt is dressed and ready for discharge home with daughter. IV removed. Went over d/c instructions with Pt - discussed d/c meds, time of last dose, reviewed stroke education, reminded Pt to drink plenty of fluids to prevent constipation or dehydration, encouraged Pt to get up slowly to prevent dizziness. Pt to follow up with his PCP. Pt denies further questions and was taken out to POV via w/c by RN to his daughter with all belongings.
== END 2020-12-30 12:40 | disposition home or self-care (01) ==
LOC: ED 12:42 → AC 13:24
PROVIDERS: Admitting Provider Internal Medicine; Emergency Provider Emergency Medicine; PCP Family Medicine; Referring Provider Emergency Medicine; Visit Provider Internal Medicine
DX: R10.9 Unspecified abdominal pain (principal); Z20.822 Contact with and (suspected) exposure to COVID-19; R42 Dizziness and giddiness; E11.9 Type 2 diabetes mellitus without complications; E78.2 Mixed hyperlipidemia; I10 Essential (primary) hypertension; Z79.4 Long term (current) use of insulin; Z86.73 Personal history of transient ischemic attack (TIA), and cerebral infarction without residual deficits; Z87.19 Personal history of other diseases of the digestive system
CPT/HCPCS: 36415; 70450; 70548; 70553; 71275; 80053; 80061; 81003; 82550; 82962; 83036; 83605; 83690; 84145; 84484; 85025; 85379; 85610; 85730; 87635; 93005; 93010; 93306; 96360; 97161; 99285; C9803; G0378; A9579; Q9967

== ENCOUNTER → 2021-02-21 09:37 | Outpatient (CLI) | payer BC, SELFPAY ==
[2020-12-29 15:23] VITALS: BMI 28.8
[2021-02-21 10:40] LABS: COVID19 -Nasal RAPID Negative (Negative)
== END ==
PROVIDERS: PCP Family Medicine; Visit Provider Surgery
DX: Z20.822 Contact with and (suspected) exposure to COVID-19 (principal)
CPT/HCPCS: 87635; C9803

== ENCOUNTER 2021-02-22 06:43 | Day surgery (SDC) | payer BC, SELFPAY ==
[2020-12-29 15:23] VITALS: BMI 28.8
[2021-02-18 09:21] VITALS: BMI 27.1
[2021-02-22] VITALS (20 sets, daily range): BP systolic 125–184; BP diastolic 69–103; PULSE 96–115; RESP 10–20; TEMP 36.4–37.2; O2SAT 95–100; BMI 27.1
--- NOTE | 2021-02-22 | PATH_ITS ---
[facility] Accession Number: [id number] . 01 Material submitted: . gallbladder - GALLBLADDER AND CONTENTS . 01 Clinical history: . LAP MONICA . 02 Diagnosis: Gallbladder and Contents: Chronic cholecystitis, cholesterolosis, and cholelithiasis. MRV 02/25/2021 1040 Local . 02 Electronically signed: . Colleen York MD, Pathologist NPI- [id number] . 01 Gross description: . The specimen is received in formalin labeled gallbladder and consists of a 4.6 x 2.0 x 2.0 cm previously disrupted gallbladder with a 0.2 cm in diameter cystic duct. The serosa is shah-pink to pink-purple and wrinkled. Opening reveals minimal green viscous bile with multiple shah-green choleliths ranging from 0.2 to 1.2 cm. The mucosa is shah-green and ragged, and the wall thickness measures 0.1 cm. Pta sections are submitted, to include the en face cystic duct margin (blue), in cassette A1. ([id number]) /[facility] 02/23/2021 1626 Local . 02 Pathologist provided ICD-10: K80.60, K81.1 . 02 CPT . [id number] Performed at: 01 [facility] Cyt[facility] [address], [place], [place] [id number] MD Satinder Almaraz MD Phone: [phone] Performed at: 02 [facility] [address] [place], [place] [id number] MD Shelby Oneil MD Phone: [phone]
[2021-02-22] MEDS: LACTATED RINGERS 1,000 ML 42 ML IV ×2 (08:33→10:17)
--- NOTE | 2021-02-22 09:10 | PM.PREOP ---
Pre-operative Note Interval Note History & Physical reviewed/Exam performed by Physician: Yes Changes to H&P: No
[2021-02-22] MEDS: CEFAZOLIN 1 GM VIAL 2 GM IV (09:45)
--- NOTE | 2021-02-22 10:06 | SUR.OPER ---
Supine on padded OR bed, head on pillow, safety belt at thigh, left arm padded and tucked at side. Right arm secured on padded arm oard <90 degrees abduction. Legs uncrossed. Padded footboard in place. Tape over blanket to secure lower legs.
[2021-02-22] MEDS: BUPIVACAINE 0.25% (PF) VIAL 30 ML INJ (10:13)
--- NOTE | 2021-02-22 11:11 | PM.OP.1 ---
Operative Date/Time/Diagnoses Date of procedure: 02/22/21 Time of procedure: 11:11 Pre-op diagnosis: Biliary colic Post-op diagnosis: same Procedure & Clinicians Procedure: Laparoscopic cholecystectomy Same procedure as scheduled: Yes Indications: Biliary colic Surgeon: Marty Doll Anesthesia Type: General Operative Notes Findings: Chronic cholecystitis, intrahepatic gallbladder, critical view of safety Specimen(s): other (Gallbladder) Estimated Blood Loss (mL): 50 Procedure in detail: The patient was placed supine on the table and bilateral lower extremity compression devices were applied. Anesthesia was induced they were intubated with an endotracheal tube and received 2g of Ancef. A time-out was performed. They were prepped and draped in sterile fashion. An infraumbilical incision was made, the umbilical stalk was elevated and the fascia was sharply incised entering the abdomen atraumatically. A blunt tip 12mm balloon trocar was then inserted, pneumoperitoneum was established and inspection of the abdomen demonstrated no evidence of injury. They were placed head up and right side up and then a 11 mm port was placed high in the epigastrium and two 5mm in the right upper quadrant. The gallbladder was grasped by the fundus and retracted over the liver and retracted laterally by the infundibulum. Using electrocautery the lateral plane between the gallbladder and the liver was opened towards the fundus. The gallbladder was then retracted laterally and the medial plane was developed in the same manner. Gallbladder was notable for both chronic inflammation of the gallbladder wall and intrahepatic in nature. With the gallbladder mobilized the bottom of the cystic plate was visualized. The hepatocystic triangle was meticulosly skeletonized using hook electrocautery of all fat and fibrous tissue from both the front and the back. Only two structures were then clearly seen entering the gallbladder the cystic duct and the cystic artery. With the critical view of safety fully established the cystic duct was clipped twice proximally and once distally using the 10 mm clip applied under direct visualization and then sharply divided. The cystic artery was divided in the same fashion. The gallbladder was removed from the liver bed using electro cautery. The liver bed was then inspected for hemostasis and this was achieved. The abdomen was irrigated with sterile saline and inspection was made that showed the clips in good position. The specimen was removed using Endo-Catch. The abdomen was desufflated. The umbilical fascia was closed with 0 Vicryl in a [id number] fashion under direct visualization. Skin incisions were irrigated and closed with 4-0 Monocryl. 30 ml of 0.25% bupivacaine was infiltrated into the subcutaneous tissue of the incisions. The wounds were sealed with Dermabond. Patient emerged from anesthesia was extubated and transferred to recovery in stable condition. The sponge and instrument count at the end of the operation was correct. Complications: none Post-operative Condition: stable Disposition: same day surgery
[2021-02-22] MEDS: fentaNYL 100 MCG/2 ML INJ IV ×2 (11:21→11:45)
--- NOTE | 2021-02-22 11:39 | SUR.PHASEI ---
1135 - Remains hypertensive with SBP 170-180's. Remains ST rate low 100's (pt states normal rate is 90's). Dr Mcclelland updated. Will give labetalol as ordered.
[2021-02-22] MEDS: LABETALOL 20 MG/4 ML SYRINGE 5 MG IV ×3 (11:43→12:06)
[2021-02-22] MEDS: OXYCODONE/ACETAMINOPHEN 5/325 TABLET 1 TAB PO ×2 (12:18→13:48)
[2021-02-22] MEDS: HYDRALAZINE 20 MG/ML VIAL 5 MG IV ×2 (12:30→12:44)
[2021-02-22] MEDS: HYDROMORPHONE 2 MG INJ IV (12:47)
[2021-02-22] MEDS: ONDANSETRON 4 MG/2 ML INJ IV (13:24)
--- NOTE | 2021-02-22 13:35 | SUR.PHASEII ---
Notified surgeon Dr Doll and anesthesiology of Hr of 115. Patient is asymptomatic. Okay to discharge patient home.
--- NOTE | 2021-02-22 13:50 | SUR.PHASEII ---
Patient using bedside urinal to void.
--- NOTE | 2021-02-22 14:05 | SUR.PHASEII ---
Patient using bedside urinal. Voided 100 mls clear yellow urine. Patient still feels like he cannot empty his bladder completely. Bladder scan reveals [address] Doll. Awaiting orders.
--- NOTE | 2021-02-22 14:32 | SUR.PHASEII ---
1400 Late entry: Notified Dr Doll of urinary retention and bladder scan. Dr Doll agreeable to allow patient to discharge home with , with the understanding that patient will return to the ER immediately if urinary retention persists/worsens. Home with in stable condition.
== END 2021-02-22 14:20 | disposition home or self-care (01) ==
PROVIDERS: PCP Family Medicine; Referring Provider Family Medicine; Visit Provider Surgery
PROC: 0FT44ZZ Resection of Gallbladder, Percutaneous Endoscopic Approach (ICD-10-PCS; CPT 47562; principal; 2021-02-22 07:45)
DX: K80.10 Calculus of gallbladder with chronic cholecystitis without obstruction (principal); E11.9 Type 2 diabetes mellitus without complications; Z86.73 Personal history of transient ischemic attack (TIA), and cerebral infarction without residual deficits; I10 Essential (primary) hypertension; K21.9 Gastro-esophageal reflux disease without esophagitis; Z79.84 Long term (current) use of oral hypoglycemic drugs
CPT/HCPCS: 47562; 82962; J0330; J0360; J0690; J1100; J1170; J2405; J2704; J3010

== ENCOUNTER → 2021-03-01 10:13 | Outpatient (CLI) | payer BC, SELFPAY ==
[2020-12-29 15:23] VITALS: BMI 28.8
[2021-03-01 11:27] LABS: Hemoglobin A1C% w Est Avg Glu 7.9 % (4.0-6.0)
[2021-03-01 11:50] LABS: Alanine Aminotransferase 19 IU/L (<50); Albumin 4.2 g/dL (3.5-5.0); Albumin Globulin Ratio 1.6 (1.0-2.8); Alkaline Phosphatase 88 U/L (38-126); Aspartate Aminotransferase 19 IU/L (17-59); BUN Creatinine Ratio 18.2 (6-22); Bilirubin Total 0.7 mg/dL (0.2-1.3); Blood Urea Nitrogen 14 mg/dL (9-20); Calcium 10.3 mg/dL (8.4-10.2); Carbon Dioxide 29 mmol/L (22-32); Chloride 98 mmol/L (98-107); Estimated Glomerular Filt Rate > 60.0 mL/min (>60); Globulin 2.7 g/dL (1.7-4.1); Glucose 173 mg/dL (80-110); HEMOLYSIS < 15 (0-50); Potassium 4.7 mmol/L (3.4-5.1); Sodium 137 mmol/L (137-145); Total Protein 6.9 g/dL (6.3-8.2)
== END ==
PROVIDERS: PCP Family Medicine; Referring Provider Family Medicine; Visit Provider Family Medicine
DX: E11.9 Type 2 diabetes mellitus without complications (principal); I10 Essential (primary) hypertension; K80.20 Calculus of gallbladder without cholecystitis without obstruction
CPT/HCPCS: 36415; 80053; 83036

== ENCOUNTER 2021-05-03 11:49 | Emergency (ER) | payer BC, SELFPAY ==
[2020-12-29 15:23] VITALS: BMI 28.8
[2021-05-03 11:54] VITALS: BP 141/82; PULSE 93; RESP 16; TEMP 36.1; O2SAT 99; BMI 26.9
--- NOTE | 2021-05-03 13:23 | ED.GENADULT ---
HPI - General Adult General Chief complaint: Dizziness Stated complaint: dizziness since 6am Time Seen by Provider: 05/03/21 12:22 Source: patient Mode of arrival: Ambulatory History of Present Illness HPI narrative: Patient is a 60-year-old male who arrives the emergency department for evaluation of what he describes as dizziness. It appeared to start this morning at approximately 0600 hours. The dizziness is more of a under easy feeling and not a room spinning sensation. It is a positional issue. He states that it occurs when stands. And does go away after he stands for short period of time. He has no chest pain. No shortness of breath. No ringing in his ears. No sinus congestion. He had similar symptoms several months ago for which he was admitted to the hospital. It was determined that it was a medication that he was on that was causing his symptoms. He has since stopped that medication is now on new medications. Related Data Home Medications Medication Instructions Recorded Confirmed gabapentin 100 mg capsule 100 mg PO BEDTIME 12/29/20 03/07/21 aspirin 81 mg tablet,delayed 81 mg PO DAILY 02/22/21 03/07/21 release Previous Rx's Medication Instructions Recorded metformin 500 mg tablet 1,000 mg PO BID #45 tab 10/28/20 zolpidem 5 mg tablet 5 mg PO HSP PRN #30 tab 11/01/20 glipizide 10 mg tablet, extended 10 mg PO BID #180 tab 12/09/20 release 24 hr acetaminophen 325 mg capsule 650 mg PO QID PRN #60 cap 02/22/21 (Tylenol) docusate sodium 100 mg capsule 100 mg PO BID #30 cap 02/22/21 (Colace) oxycodone 5 mg tablet 5 mg PO Q8H PRN #30 tab 02/22/21 semaglutide 7 mg tablet 7 mg PO DAILY #90 tab 03/02/21 lisinopril 10 mg tablet 10 mg PO BEDTIME #90 tab 03/30/21 sildenafil (pulm.hypertension) 20 20 mg PO ONCE #30 tab 04/06/21 mg tablet meclizine 25 mg tablet 25 mg PO TID PRN #14 tab 05/03/21 Allergies Allergy/AdvReac Type Severity Reaction Status Date / Time No Known Drug Allergies Allergy Verified 05/03/21 12:02 Review of Systems Constitutional Constitutional: Reports as per HPI Eyes Eyes: Reports system reviewed and no additional complaints, except as documented ENT Ears, Nose, Mouth, and Throat: Reports system reviewed and no additional complaints, except as documented Cardiovascular Cardiovascular: Reports system reviewed and no additional complaints, except as documented Respiratory Respiratory: Reports system reviewed and no additional complaints, except as documented Gastrointestinal Gastrointestinal: Reports system reviewed and no additional complaints, except as documented Genitourinary Genitourinary: Reports system reviewed and no additional complaints, except as documented Musculoskeletal Musculoskeletal: Reports system reviewed and no additional complaints, except as documented Integumentary/Breasts Skin/Breast: Reports system reviewed and no additional complaints, except as documented Neurologic Neurologic: Reports as per HPI Endocrine Endocrine: Reports system reviewed and no additional complaints, except as documented Hematologic/Lymphatic On Anticoagulants: No Allergic/Immunologic Allergic/Immunologic: Reports system reviewed and no additional complaints, except as documented Patient History Medical History Cerebellar infarct Cholelithiasis Chronic back pain (~1975) Diverticular disease (~2015) Essential hypertension (~2010) Foot pain (~2010) Herpes (~1976) Mixed hyperlipidemia (10/03/17) Tinnitus Type 2 diabetes mellitus without complication (10/03/17) Vertigo (~2018) Surgical History Anesthesia History of dental surgery (~2018) History of toe surgery (~2015) Status post LASIK surgery of both eyes (~1997) Family History (Updated 01/26/21 @ 15:20 by Elizabet Walters RN) Father Hypertension Gallstones Mother Dementia Hospice care Grandfather Stroke Grandmother Pancreatic cancer Social History marital status: household members: spouse occupational status: unemployed Smoking Status: Never smoker alcohol intake: current substance use type: does not use Smoking Status: Never smoker alcohol intake frequency: 3 or more drinks per day Substance Use Type: does not use Exam Initial Vital Signs Initial Vital Signs: Vital Signs Temperature 96.9 F L 05/03/21 11:54 Pulse Rate 93 H 05/03/21 11:54 Respiratory Rate 16 05/03/21 11:54 Blood Pressure 141/82 H 05/03/21 11:54 Pulse Oximetry 99 05/03/21 11:54 Const General: cooperative, healthy appearing and comfortable [facility] Head: normal to inspection and normocephalic Ears: TM normal on the right, TM normal on the left and EAC's normal Nose: external nose normal Eyes General: appearance normal, both eyes and all related structures Pupils: PERRL EOM: EOM intact bilaterally Chest Chest: normal inspection of the chest Resp Effort & Inspection: normal respiratory effort Auscultation: clear to auscultation bilaterally Cardio Rate: regular rate Rhythm: regular rhythm GI Inspection: normal to inspection Palpation: soft Skin General: no rashes or lesions noted Neuro General: patient alert, patient awake and moves all extremities Cranial Nerves: CN's II-XI intact bilaterally Cognition: normal cognition Speech: speech normal Gait: normal gait Motor: muscle tone normal throughout Sensory Exam: no sensory deficits noted Coordination: tandem gait normal Extrem General: normal to inspection and capillary refill normal Psych Appearance: grossly normal and well kempt Procedures Ear Wax Removal Right Ear: TM Examination: TM(s) intact, normal appearance Ear Canal Exam: atraumatic Patient Tolerated Procedure: Well Complications: no problems Technique: ear canal curetted Scores GCS [place] coma scale eye opening: Spontaneous [place] coma scale verbal response: Orientated [place] coma scale motor response: Obey commands [place] coma scale total score: 15 Course Orders Ordered: ED Orders 05/03/21 12:03 EKG-12 Lead Stat Vital Signs Vital signs: Vital Signs - 8 hr 05/03/21 11:54 Temperature 96.9 F L Pulse Rate 93 H Respiratory Rate 16 Blood Pressure 141/82 H Pulse Oximetry 99 Medical Decision Making Lab Data Lab results reviewed: Yes I reviewed the patient's lab results. Labs: Point of Care Testing Glucose POC 125 Point of care testing: Point of Care Testing Glucose POC 125 ECG Data Attestation: I personally reviewed and interpreted this ECG as follows: Interpretation: Sinus rhythm Normal axis Ventricular rate 85 Right bundle branch block Normal QTC No ST T wave changes MDM Narrative Medical decision making narrative: Patient had a nonfocal neurologic exam. He was able to sit and stand at bedside. When he started to take a couple steps he did become somewhat lightheaded but this lasted less than 5 seconds and then completely resolved and that he was able to ambulate without any issues. He has no other associated symptoms. He had a very extensive workup several months ago for similar symptoms and was determined to be medications although he has not currently on those medications. I did remove some cerumen from his right ear. We also discussed other ENT issues to include sinus congestion. The plan will be is to discharge home. He was started on decongestants. We also sent home with meclizine to see if this does not improve some symptoms. We will hold on further workup for now. He was given return precautions. He expressed understanding and agreement. Discharge Plan Departure Patient Disposition: Home Clinical Impression: Dizziness Instructions: DI for Dizziness-Nonvertigo Activity Restrictions/Additional Instructions: Recommend that you increase your fluid intake and start an antihistamine such as Claritin/Otilia/Zyrtec. You can purchase this [id number]. The generic versions are appropriate. Start taking the meclizine/Antivert as needed as well. Contact your primary doctor for follow-up in please return to the emergency department for any new or worsening symptoms Prescriptions: New meclizine 25 mg tablet 25 mg PO TID PRN (Reason: dizziness) Qty: 14 RF: 0 No Action glipizide 10 mg tablet extended release 24hr 10 mg PO BID Qty: 180 RF: 2 lisinopril 10 mg tablet 10 mg PO BEDTIME Qty: 90 RF: 3 sildenafil (pulm.hypertension) 20 mg tablet 20 mg PO ONCE Qty: 30 RF: 5 semaglutide 7 mg tablet 7 mg PO DAILY Qty: 90 RF: 1 metformin 500 mg tablet 1,000 mg PO BID Qty: 45 RF: 0 zolpidem 5 mg tablet 5 mg PO HSP PRN (Reason: insomnia) Qty: 30 RF: 0 gabapentin 100 mg capsule 100 mg PO BEDTIME RF: 0 aspirin 81 mg Tablet,Delayed Release (Dr/Ec) 81 mg PO DAILY RF: 0 docusate sodium [Colace] 100 mg capsule 100 mg PO BID Qty: 30 RF: 0 oxycodone 5 mg tablet 5 mg PO Q8H PRN (Reason: pain) Qty: 30 RF: 0 acetaminophen [Tylenol] 325 mg capsule 650 mg PO QID PRN (Reason: pain) Qty: 60 RF: 0 Referrals: Praneeth Singh MD [Primary Care Provider] -
== END 2021-05-03 13:32 | disposition home or self-care (01) ==
PROVIDERS: Emergency Provider Emergency Medicine; PCP Family Medicine
DX: R42 Dizziness and giddiness (principal); R07.9 Chest pain, unspecified
CPT/HCPCS: 82962; 93005; 93010; 99281; 99283

== ENCOUNTER → 2021-06-17 07:16 | Outpatient (CLI) | payer BC, SELFPAY ==
[2020-12-29 15:23] VITALS: BMI 28.8
[2021-06-17 08:23] LABS: Hemoglobin A1C% w Est Avg Glu 7.2 % (4.0-6.0)
[2021-06-17 08:28] LABS: BUN Creatinine Ratio 25.3 (6-22); Blood Urea Nitrogen 20 mg/dL (9-20); Calcium 9.4 mg/dL (8.4-10.2); Carbon Dioxide 30 mmol/L (22-32); Chloride 103 mmol/L (98-107); Estimated Glomerular Filt Rate > 60.0 mL/min (>60); Glucose 142 mg/dL (80-110); HEMOLYSIS < 15 (0-50); Potassium 4.2 mmol/L (3.4-5.1); Sodium 140 mmol/L (137-145)
== END ==
PROVIDERS: PCP Family Medicine; Referring Provider Family Medicine; Visit Provider Family Medicine
DX: E11.9 Type 2 diabetes mellitus without complications (principal); I10 Essential (primary) hypertension
CPT/HCPCS: 36415; 80048; 83036

== ENCOUNTER → 2021-12-19 06:57 | Outpatient (CLI) | payer OTHER, SELFPAY ==
[2020-12-29 15:23] VITALS: BMI 28.8
[2021-12-19 07:45] LABS: Hemoglobin A1C% w Est Avg Glu 7.9 % (4.0-6.0)
[2021-12-19 07:48] LABS: Alanine Aminotransferase 14 IU/L (<50); Albumin 4.1 g/dL (3.5-5.0); Albumin Globulin Ratio 1.5 (1.0-2.8); Alkaline Phosphatase 77 U/L (38-126); Aspartate Aminotransferase 17 IU/L (17-59); BUN Creatinine Ratio 17.6 (6-22); Bilirubin Total 0.6 mg/dL (0.2-1.3); Blood Urea Nitrogen 15 mg/dL (9-20); Calcium 9.2 mg/dL (8.4-10.2); Carbon Dioxide 27 mmol/L (22-32); Chloride 104 mmol/L (98-107); Cholesterol 199 mg/dL (140-199); Estimated Glomerular Filt Rate > 60.0 mL/min (>60); Globulin 2.7 g/dL (1.7-4.1); Glucose 197 mg/dL (80-110); HDL Cholesterol 51 mg/dL (40-60); HEMOLYSIS < 15 (0-50); LDL Cholesterol Calculated 125 mg/dL (<100); Potassium 4.2 mmol/L (3.4-5.1); Sodium 139 mmol/L (137-145); Total Protein 6.8 g/dL (6.3-8.2); Triglycerides 117 mg/dL (35-150)
== END ==
PROVIDERS: PCP Family Medicine; Referring Provider Family Medicine; Visit Provider Family Medicine
DX: E78.2 Mixed hyperlipidemia (principal); E11.9 Type 2 diabetes mellitus without complications; I10 Essential (primary) hypertension
CPT/HCPCS: 36415; 80053; 80061; 83036

== ENCOUNTER → 2022-04-24 07:09 | Outpatient (CLI) | payer OTHER, SELFPAY ==
[2020-12-29 15:23] VITALS: BMI 28.8
== END ==
PROVIDERS: PCP Family Medicine; Referring Provider Family Medicine; Visit Provider Family Medicine
DX: E11.9 Type 2 diabetes mellitus without complications (principal)
CPT/HCPCS: 36415; 83036

== ENCOUNTER → 2022-06-26 13:41 | Outpatient (CLI) | payer OTHER, SELFPAY ==
[2020-12-29 15:23] VITALS: BMI 28.8
--- NOTE | 2022-06-26 13:42 | DI.RAD.S_ITS ---
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 COMPARISON: None. FINDINGS: Bones: No fractures or dislocations. No suspicious bony lesions. Soft tissues: No elbow joint effusion. No suspicious soft tissue calcifications. IMPRESSION: Normal right elbow radiographs Approved by: Kane Rutledge M.D. on 06/26/2022 at 13:54
== END ==
PROVIDERS: PCP Family Medicine; Referring Provider Student in an Organized Health Care Education/Training Program; Visit Provider Student in an Organized Health Care Education/Training Program
DX: S53.401A Unspecified sprain of right elbow, initial encounter (principal); M25.521 Pain in right elbow; X58.XXXA Exposure to other specified factors, initial encounter
CPT/HCPCS: 73080

== ENCOUNTER → 2022-12-04 07:04 | Outpatient (CLI) | payer OTHER, SELFPAY ==
[2020-12-29 15:23] VITALS: BMI 28.8
[2022-12-04 08:08] LABS: Creatinine Urine Random 169.7 mg/dL
[2022-12-04 08:13] LABS: Microalbumi Creatinin Ratio Ur 27.1 ug/mg CR (<30); Microalbumin Urine Random 4.6 mg/dL (0-1.6)
== END ==
PROVIDERS: PCP Family Medicine; Referring Provider Family Medicine; Visit Provider Family Medicine
DX: E11.9 Type 2 diabetes mellitus without complications (principal)
CPT/HCPCS: 82043; 82570

== ENCOUNTER → 2023-01-09 07:06 | Outpatient (CLI) | payer OTHER, SELFPAY ==
[2020-12-29 15:23] VITALS: BMI 28.8
[2023-01-09 08:32] LABS: Add Manual Diff / Slide Review NO; Basophils Absolute Auto 0 /uL (0-100); Basophils Percent Auto 0.4 % (0-2); Eosinophils Absolute Auto 300 /uL (0-450); Eosinophils Percent Auto 5.5 % (2-4); Hematocrit 46.3 % (41-53); Hemoglobin 15.8 g/dL (13.5-17.5); Lymphocytes Absolute Auto 2600 /uL (1100-4500); Lymphocytes Percent Auto 42.1 % (25-40); Mean Corpuscular HGB Conc 34.2 % (30-36); Mean Corpuscular Hemoglobin 30.8 PG (26-34); Mean Corpuscular Volume 90.2 fL (80-100); Monocytes Absolute Auto 500 /uL (0-900); Monocytes Percent Auto 8.1 % (3-14); Neutrophils Absolute Auto 2700 /uL (1500-7000); Neutrophils Percent Auto 43.9 % (50-75); Platelet Count 163 X10^3/uL (150-400); Red Blood Cell Count 5.13 X10^6/uL (4.5-5.9); Red Cell Distribution Width 13.3 % (11.6-14.8); White Blood Cell Count 6.2 X10^3/uL (4.5-11.0)
[2023-01-09 09:09] LABS: Alanine Aminotransferase 17 IU/L (<50); Albumin 4.1 g/dL (3.5-5.0); Albumin Globulin Ratio 1.5 (1.0-2.8); Alkaline Phosphatase 84 U/L (38-126); Aspartate Aminotransferase 18 IU/L (17-59); BUN Creatinine Ratio 26.3 (6-22); Bilirubin Total 0.9 mg/dL (0.2-1.3); Blood Urea Nitrogen 21 mg/dL (9-20); Calcium 9.1 mg/dL (8.4-10.2); Carbon Dioxide 30 mmol/L (22-32); Chloride 99 mmol/L (98-107); Cholesterol 202 mg/dL (140-199); Estimated Glomerular Filt Rate > 60 mL/min (>60); Globulin 2.8 g/dL (1.7-4.1); Glucose 198 mg/dL (80-110); HDL Cholesterol 44 mg/dL (40-60); HEMOLYSIS < 15 (0-50); LDL Cholesterol Calculated 120 mg/dL (<100); Potassium 4.1 mmol/L (3.4-5.1); Sodium 136 mmol/L (137-145); Total Protein 6.9 g/dL (6.3-8.2); Triglycerides 191 mg/dL (35-150)
[2023-01-09 09:30] LABS: TSH w/ Reflex to FT4 1.24 uIU/mL (0.47-4.68)
[2023-01-10 07:36] LABS: x Labcorp Estim. Avg Glu (eAG) 223 mg/dL (.); x Labcorp Hemoglobin A1c 9.4 % (4.8-5.6)
== END ==
PROVIDERS: PCP Family Medicine; Referring Provider Family Medicine; Visit Provider Family Medicine
DX: E11.9 Type 2 diabetes mellitus without complications (principal); E78.2 Mixed hyperlipidemia; G60.9 Hereditary and idiopathic neuropathy, unspecified; I10 Essential (primary) hypertension
CPT/HCPCS: 36415; 80053; 80061; 83036; 84443; 85025

== ENCOUNTER → 2023-02-14 08:01 | Outpatient (CLI) | payer OTHER, SELFPAY ==
[2020-12-29 15:23] VITALS: BMI 28.8
[2023-02-15 11:14] LABS: Fecal Immunochemical Test Negative (Negative)
== END ==
PROVIDERS: PCP Family Medicine; Referring Provider Family Medicine; Visit Provider Family Medicine
DX: K57.90 Diverticulosis of intestine, part unspecified, without perforation or abscess without bleeding (principal); Z12.11 Encounter for screening for malignant neoplasm of colon
CPT/HCPCS: 82274

== ENCOUNTER 2023-04-09 11:43 | Emergency (ER) | payer OTHER, SELFPAY ==
[2020-12-29 15:23] VITALS: BMI 28.8
[2023-04-09 11:58] VITALS: BP 117/72; PULSE 101; RESP 16; TEMP 36.5; O2SAT 97; BMI 26.6
[2023-04-09 12:13] LABS: Appearance Urine UA CLOUDY; Bilirubin Urine UA NEGATIVE (NEGATIVE); Color Urine UA RED; Glucose Urine UA 1+ g/dL (Negative); Ketones Urine UA NEGATIVE (NEGATIVE); Leukocyte Esterase Urine UA NEGATIVE (NEGATIVE); Nitrite Urine UA NEGATIVE (Negative); Occult Blood Urine UA 3+ (Negative); Protein Urine UA 1+ (Negative)
[2023-04-09 12:22] LABS: Bacteria Urine None Seen; Culture Indicated Urine Cult Not Indicated; RBC Urine >100/HPF (0-5/HPF); Squamous Epithelial Cell Urine 0-1 /HPF (0-5/HPF); WBC Urine 0-1/HPF (0-5/HPF)
--- NOTE | 2023-04-09 12:25 | DI.CT.S_ITS ---
PROCEDURE: CT IVP A/P W/WO INDICATIONS: painless hematuria TECHNIQUE: Optional 5 mm thick noncontrast images acquired from the diaphragm to the symphysis pubis. After the administration of intravenous contrast, 5 mm thick images acquired from the diaphragm to the symphysis pubis after a 10-minute delay. 2 mm thick coronal and sagittal reformats were then performed of the kidneys and ureters. For radiation dose reduction, the following was used: automated exposure control, adjustment of mA and/or kV according to patient size. COMPARISON: None. FINDINGS: Image quality: Excellent. Lung bases: Lung bases are clear. Heart size is normal. Urinary system: 4 millimeter nonobstructing stone in the inferior calyx of the right kidney. Junctional cortical defects of the right kidney, consistent with prior vascular insults or infection. No complex renal cystic lesions which require follow-up. No filling defects within the opacified renal collecting system or ureters. There is of polypoidal filling defect within the right posterior bladder wall measuring 1.1 x 0.8 centimeter (series 4, image 196). Additional polypoidal lesion along the posterior bladder wall measuring 3 millimeters (series 4, image 199). No evidence of extension beyond the bladder wall. Other solid organs: Liver is normal in size and enhancement. Subcentimeter hypoattenuating lesion in segment 3, too small to characterize by CT Gallbladder is absent . Biliary system is non dilated. Pancreas enhances normally. Spleen is normal in size and enhancement. No adrenal nodules. Peritoneum and bowel: Bowel loops demonstrate normal wall thickness and caliber. No free fluid or air. Nodes and vessels: No retroperitoneal or mesenteric adenopathy by size criteria. Aorta and inferior vena cava are normal in size. Abdominal wall: No ventral hernias. Pelvis: No pathologic free pelvic fluid. No inguinal hernias or adenopathy. Bones: Well-defined cystic lesion in the L3 vertebral body, without associated pathologic fracture, measuring 1.8 centimeters; this is favored to represent a benign bony lesion given well corticated margins. 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 No evidence of extension beyond the bladder wall. No pelvic or retroperitoneal adenopathy. Recommend urology referral. Additional 0.3 centimeter filling defect within the posterior bladder, either additional mass versus focus of thrombus. 4 millimeter nonobstructing right-sided nephrolithiasis. No hydronephrosis. Dictated by: Frantz Hoyos M.D. on 04/09/2023 at 13:47 Approved by: Frantz Hoyos M.D. on 04/09/2023 at 13:53
--- NOTE | 2023-04-09 12:47 | ED_ITS ---
HPI - General Adult <Maria Eugenia Sy PA-C - Last Filed: 04/09/23 14:25> General Chief complaint: Urogenital-Female Stated complaint: blood clots in urine Time Seen by Provider: 04/09/23 12:05 History of Present Illness HPI narrative: 62-year-old male with past medical history diabetes, hyperlipidemia, cholelithiasis presents to the ED with 1 day of gross hematuria. Patient complains of small blood clots in his urine. Patient denies any associated symptoms including pain, nausea, vomiting, fever, chills, dysuria, abdominal pain, chest pain, shortness of breath, urinary urgency, urinary frequency, lightheadedness, dizziness, syncope. Patient is not a smoker, has never smoked. Patient consumes 3-4 drinks of alcohol per week. Patient denies recreational drug use. Related Data Previous Rx's Medication Instructions Recorded sildenafil (pulm.hypertension) 20 20 mg PO ONCE #30 tabs 04/06/21 mg tablet blood-glucose meter #1 ea 05/06/21 lancets 30 gauge and blood glucose #200 ea 04/25/22 strips combo pack metformin 1,000 mg tablet 1,000 mg PO BID #180 tabs 07/13/22 glipizide 10 mg tablet, extended See Rx Instructions .Route 12/05/22 release 24 hr .COMPLEX #180 tabs zolpidem 5 mg tablet 5 mg PO BEDTIME PRN insomnia #30 02/05/23 tabs lisinopril 10 mg tablet See Rx Instructions .Route 02/13/23 .COMPLEX #90 tabs semaglutide 14 mg tablet (Rybelsus) 14 mg PO DAILY #60 tabs 03/19/23 gabapentin 100 mg capsule 100 mg PO BEDTIME #90 caps 03/21/23 blood sugar diagnostic (Blood #100 ea 04/10/23 Glucose Test strips) Allergies Allergy/AdvReac Type Severity Reaction Status Date / Time empagliflozin AdvReac Dizziness Verified 12/08/22 08:15 [From Jardiance] Review of Systems <Maria Eugenia Sy PA-C - Last Filed: 04/09/23 14:25> Review of Systems ROS Unobtainable: All systems reviewed & are unremarkable except as noted in HPI and below Constitutional Constitutional: Denies chills, Denies fatigue, Denies fever(s), Denies frequent falls, Denies lethargy and Denies weakness Eyes Eyes: Denies change in vision, Denies eye discharge, Denies irritation and Denies loss of vision ENT Ears, Nose, Mouth, and Throat: Denies change in voice, Denies dizziness, Denies neck pain, Denies sore throat and Denies throat swelling Cardiovascular Cardiovascular: Denies chest pain, Denies irregular heart rhythm, Denies lightheadedness, Denies palpitations, Denies dyspnea, Denies dyspnea on exertion and Denies orthopnea Respiratory Respiratory: Denies cough, Denies dyspnea, Denies dyspnea on exertion and Denies wheezing Gastrointestinal Gastrointestinal: Denies abdominal pain, Denies change in bowel habits, Denies diarrhea, Denies nausea and Denies vomiting Genitourinary Genitourinary: Reports hematuria, Denies flank pain, Denies urinary incontinence and Denies urinary urgency Musculoskeletal Musculoskeletal: Denies back pain, Denies muscle weakness, Denies neck pain, Denies numbness and Denies tingling Integumentary/Breasts Skin/Breast: Denies pruritus, Denies erythema, Denies rash and Denies wounds Neurologic Neurologic: Denies behavioral changes, Denies confusion, Denies dizziness, Denies frequent falls, Denies loss of vision, Denies numbness, Denies tingling and Denies weakness Psychiatric Psychiatric: Denies anxiety, Denies behavioral changes, Denies confusion, Denies depression, Denies homicidal ideation and Denies suicidal ideation Endocrine Endocrine: Denies fatigue, Denies flushing and Denies palpitations Hematologic/Lymphatic Hematologic/Lymphatic: Denies easy bruising Allergic/Immunologic Allergic/Immunologic: Denies urticaria, Denies throat swelling and Denies wheezing Patient History <Maria Eugenia Sy PA-C - Last Filed: 04/09/23 14:25> Medical History (Updated 04/09/23 @ 14:14 by Maria Eugenia Sy PA-C) Cerebellar infarct Cholelithiasis Chronic back pain (~1975) Chronic ethmoidal sinusitis Diverticular disease (~2015) Essential hypertension (~2010) Foot pain (~2010) Herpes (~1976) Mixed hyperlipidemia (10/03/17) Tinnitus Type 2 diabetes mellitus without complication (10/03/17) Vertigo (~2018) Surgical History (Updated 04/11/23 @ 15:08 by Juanita Anderson RN) Anesthesia History of dental surgery (~2018) History of toe surgery (~2015) Hx of cholecystectomy Status post LASIK surgery of both eyes (~1997) Family History Father Hypertension Gallstones Mother Dementia Hospice care Grandfather Stroke Grandmother Pancreatic cancer Social History (Updated 04/11/23 @ 15:09 by Juanita Anderson RN) marital status: number of children: 2 household members: spouse occupational status: employed and unemployed Smoking Status: Never smoker alcohol intake: current substance use type: does not use caffeine: Yes Type(s) of exercise: other frequency: daily duration: > 90 minutes/day Smoking Status: Never smoker alcohol intake frequency: 3 or more drinks per day Substance Use Type: does not use Exam <Maria Eugenia Sy PA-C - Last Filed: 04/09/23 14:25> Narrative Exam Narrative: Const General:?cooperative, healthy appearing and comfortable HENMT Head:?normal to inspection Ears:?hearing grossly normal bilaterally Nose:?external nose normal Face and sinus:?normal facial exam and sinuses nontender Mouth:?oral mucosae normal Throat:?posterior oropharynx normal Eyes General:?appearance normal, both eyes and all related structures Neck Neck:?normal visual inspection and no lymphadenopathy noted Resp Effort & Inspection:?normal respiratory effort Auscultation:?clear to auscultation bilaterally Cardio Rate:?regular rate Rhythm:?regular rhythm GI Abdomen is soft, nondistended, nontender to palpation. There is no CVA t enderness. Neuro General:?patient alert, patient awake and patient oriented x3 Initial Vital Signs Initial Vital Signs: Vital Signs Temperature 97.7 F 04/09/23 11:58 Pulse Rate 101 H 04/09/23 11:58 Respiratory Rate 16 04/09/23 11:58 Blood Pressure 117/72 04/09/23 11:58 Pulse Oximetry 97 04/09/23 11:58 Oxygen Delivery Method Room Air 04/09/23 11:58 <Tamy Mayfield DO - Last Filed: 04/12/23 00:31> Initial Vital Signs Initial Vital Signs: Vital Signs Temperature 97.7 F 04/09/23 11:58 Pulse Rate 101 H 04/09/23 11:58 Respiratory Rate 16 04/09/23 11:58 Blood Pressure 117/72 04/09/23 11:58 Pulse Oximetry 97 04/09/23 11:58 Oxygen Delivery Method Room Air 04/09/23 11:58 Course <Maria Eugenia Sy PA-C - Last Filed: 04/09/23 14:25> Orders Ordered: ED Orders 04/09/23 11:55 Urinalysis and Microscopic Stat 04/09/23 12:25 CT IVP A/P W/WO Stat 04/09/23 12:41 CBC Auto Diff [Complete Blood Count AUTO DIFF] Stat CMP [Comprehensive Metabolic Panel] Stat Lipase Stat Vital Signs Vital signs: Vital Signs - 8 hr 04/09/23 11:58 Temperature 97.7 F Pulse Rate 101 H Respiratory Rate 16 Blood Pressure 117/72 Pulse Oximetry 97 Oxygen Delivery Method Room Air <Tamy Mayfield DO - Last Filed: 04/12/23 00:31> Orders Ordered: ED Orders 04/09/23 11:55 Urinalysis and Microscopic Stat 04/09/23 12:25 CT IVP A/P W/WO Stat 04/09/23 12:41 CBC Auto Diff [Complete Blood Count AUTO DIFF] Stat CMP [Comprehensive Metabolic Panel] Stat Lipase Stat Vital Signs Vital signs: Vital Signs - 8 hr 04/09/23 11:58 Temperature 97.7 F Pulse Rate 101 H Respiratory Rate 16 Blood Pressure 117/72 Pulse Oximetry 97 Oxygen Delivery Method Room Air Medical Decision Making <Maria Eugenia Sy PA-C - Last Filed: 04/09/23 14:25> Lab Data 04/09/23 12:41 04/09/23 12:41 Labs: Lab Results 04/09/23 04/09/23 04/09/23 Range/Units 11:55 12:41 12:41 WBC 6.8 (4.5-11.0) X10^3/uL RBC 5.19 (4.5-5.9) X10^6/uL Hgb 15.9 (13.5-17.5) g/dL Hct 45.9 (41-53) % MCV 88.4 (80-100) fL MCH 30.7 (26-34) PG MCHC 34.7 (30-36) % RDW 13.7 (11.6-14.8) % Plt Count 168 (150-400) X10^3/uL Neut % (Auto) 52.1 (50-75) % Lymph % (Auto) 35.1 (25-40) % [place] % (Auto) 6.9 (3-14) % Eos % (Auto) 5.2 H (2-4) % Baso % (Auto) 0.7 (0-2) % Neut # (Auto) 3500 (8219-6570) /uL Lymph # (Auto) 2400 (8973-1604) /uL [place] # (Auto) 500 (0-900) /uL Eos # (Auto) 400 (0-450) /uL Baso # (Auto) 100 (0-100) /uL Sodium 135 L (137-145) mmol/L Potassium 4.1 (3.4-5.1) mmol/L Chloride 101 (98-107) mmol/L Carbon Dioxide 26 (22-32) mmol/L BUN 15 (9-20) mg/dL Creatinine 0.70 (0.66-1.25) mg/dL Estimated GFR > 60 (>60) mL/min BUN/Creatinine Ratio 21.4 (6-22) Glucose 177 H (80-110) mg/dL Calcium 9.5 (8.4-10.2) mg/dL Total Bilirubin 0.7 (0.2-1.3) mg/dL AST 20 (17-59) IU/L ALT 19 (<50) IU/L Alkaline Phosphatase 80 (38-126) U/L Total Protein 6.8 (6.3-8.2) g/dL Albumin 4.1 (3.5-5.0) g/dL Globulin 2.7 (1.7-4.1) g/dL Albumin/Globulin Ratio 1.5 (1.0-2.8) Lipase 235 (23-300) U/L Urine Color Red Urine Appearance Cloudy Urine pH 7.0 (4.5-8.0) Ur Specific [place] 1.010 (1.000-1.035) Urine Protein 1+ H (Negative) Urine Glucose (UA) 1+ H (Negative) g/dL Urine Ketones Negative (NEGATIVE) Urine Occult Blood 3+ H (Negative) Urine Nitrate Negative (Negative) Urine Bilirubin Negative (NEGATIVE) Urine Urobilinogen 1.0 (0.2) E.U./dL Ur Leukocyte Esterase Negative (NEGATIVE) Urine RBC >100/hpf H (0-5/HPF) Urine WBC 0-1/hpf (0-5/HPF) Ur Squamous Epith Cells 0-1 /hpf (0-5/HPF) Urine Bacteria None seen (None) Ur Culture Indicated? Cult not indicated MDM Narrative Medical decision making narrative: 62-year-old male with past medical history diabetes, hyperlipidemia, cholelithiasis presents to the ED with 1 day of gross hematuria. Concern for UTI versus nephrolithiasis versus malignancy versus kidney pathology versus other. Will obtain labs, urinalysis, CT abdomen pelvis. Will reassess. Labs within normal limits, UA without UTI. Urine positive for hematuria. CT abdomen pelvis shows a polypoid oil filling defect within the right posterior bladder wall measuring 1.1 x 0.8 cm, concerning for low-grade transitional cell carcinoma. Additional polypoid lesion along the posterior bladder wall measuring 3 mm, either additional mass versus focus of thrombus. No evidence of extension beyond the bladder wall. Radiology recommends urology referral. There is also a 4 mm nonobstructing right-sided kidney stone. Findings were discussed with patient. Recommend follow-up with Urology as soon as possible. ED return precautions were discussed with patient. Patient verbalized understanding. Medical records reviewed: Yes <Tamy Mayfield DO - Last Filed: 04/12/23 00:31> Lab Data Labs: Lab Results 04/09/23 04/09/23 04/09/23 Range/Units 11:55 12:41 12:41 WBC 6.8 (4.5-11.0) X10^3/uL RBC 5.19 (4.5-5.9) X10^6/uL Hgb 15.9 (13.5-17.5) g/dL Hct 45.9 (41-53) % MCV 88.4 (80-100) fL MCH 30.7 (26-34) PG MCHC 34.7 (30-36) % RDW 13.7 (11.6-14.8) % Plt Count 168 (150-400) X10^3/uL Neut % (Auto) 52.1 (50-75) % Lymph % (Auto) 35.1 (25-40) % [place] % (Auto) 6.9 (3-14) % Eos % (Auto) 5.2 H (2-4) % Baso % (Auto) 0.7 (0-2) % Neut # (Auto) 3500 (2486-0386) /uL Lymph # (Auto) 2400 (6314-6291) /uL [place] # (Auto) 500 (0-900) /uL Eos # (Auto) 400 (0-450) /uL Baso # (Auto) 100 (0-100) /uL Sodium 135 L (137-145) mmol/L Potassium 4.1 (3.4-5.1) mmol/L Chloride 101 (98-107) mmol/L Carbon Dioxide 26 (22-32) mmol/L BUN 15 (9-20) mg/dL Creatinine 0.70 (0.66-1.25) mg/dL Estimated GFR > 60 (>60) mL/min BUN/Creatinine Ratio 21.4 (6-22) Glucose 177 H (80-110) mg/dL Calcium 9.5 (8.4-10.2) mg/dL Total Bilirubin 0.7 (0.2-1.3) mg/dL AST 20 (17-59) IU/L ALT 19 (<50) IU/L Alkaline Phosphatase 80 (38-126) U/L Total Protein 6.8 (6.3-8.2) g/dL Albumin 4.1 (3.5-5.0) g/dL Globulin 2.7 (1.7-4.1) g/dL Albumin/Globulin Ratio 1.5 (1.0-2.8) Lipase 235 (23-300) U/L Urine Color Red Urine Appearance Cloudy Urine pH 7.0 (4.5-8.0) Ur Specific [place] 1.010 (1.000-1.035) Urine Protein 1+ H (Negative) Urine Glucose (UA) 1+ H (Negative) g/dL Urine Ketones Negative (NEGATIVE) Urine Occult Blood 3+ H (Negative) Urine Nitrate Negative (Negative) Urine Bilirubin Negative (NEGATIVE) Urine Urobilinogen 1.0 (0.2) E.U./dL Ur Leukocyte Esterase Negative (NEGATIVE) Urine RBC >100/hpf H (0-5/HPF) Urine WBC 0-1/hpf (0-5/HPF) Ur Squamous Epith Cells 0-1 /hpf (0-5/HPF) Urine Bacteria None seen (None) Ur Culture Indicated? Cult not indicated Discharge Plan Departure Patient Disposition: Home Clinical Impression: Hematuria Instructions: DI for Hematuria Activity Restrictions/Additional Instructions: You were evaluated in the ED today for blood in your urine. Your labs and urine were normal without signs of infection. Your CT abdomen pelvis did show a 4 mm nonobstructing kidney stone. There was also a 1 cm filling defect within the posterior bladder wall which is concerning for a low-grade transitional cell carcinoma. There is also an additional 0.3 cm filling defect within the posterior bladder, either additional mass or focus of thrombus. These findings warrant a further investigation by a urologist. Please call [facility] at [phone] to schedule an appointment as soon as possible. Please return to the ED if you have worsening symptoms, inability to urinate due to the clots. Prescriptions: No Action sildenafil (pulm.hypertension) 20 mg tablet 20 mg PO ONCE Qty: 30 5RF Rx Instructions: 1-5 tabs as directed (DME) blood-glucose meter Kit See Rx Instructions .Route Qty: 1 0RF Rx Instructions: As directed (DME) lancets-blood glucose strips 30 gauge combo pack See Rx Instructions .Route Qty: 200 0RF Rx Instructions: As directed metformin 1,000 mg tablet 1,000 mg PO BID Qty: 180 3RF glipizide 10 mg tablet extended release 24hr See Rx Instructions .ROUTE .COMPLEX Qty: 180 2RF Dose Instruction: TAKE 1 TABLET BY MOUTH TWICE DAILY Rx Instructions: TAKE 1 TABLET BY MOUTH TWICE DAILY lisinopril 10 mg tablet See Rx Instructions .ROUTE .COMPLEX Qty: 90 3RF Dose Instruction: TAKE ONE TABLET BY MOUTH ONCE DAILY Rx Instructions: TAKE ONE TABLET BY MOUTH ONCE DAILY Rybelsus 14 mg tablet 14 mg PO DAILY Qty: 60 1RF gabapentin 100 mg capsule 100 mg PO BEDTIME Qty: 90 3RF (DME) Blood Glucose Test Strip See Rx Instructions .Route Qty: 100 2RF Rx Instructions: test daily zolpidem 5 mg tablet 5 mg PO BEDTIME PRN (Reason: insomnia) Qty: 30 0RF Referrals: Praneeth Singh MD [Primary Care Provider] - Stand Alone Forms: Patient Portal/API <Tamy Mayfield DO - Last Filed: 04/12/23 00:31> Cosign ED Attending Lynnetteature Attestation: I was immediately available in the department for consultation. Documentation has been reviewed.
[2023-04-09 12:54] LABS: Add Manual Diff / Slide Review NO; Basophils Absolute Auto 100 /uL (0-100); Basophils Percent Auto 0.7 % (0-2); Eosinophils Absolute Auto 400 /uL (0-450); Eosinophils Percent Auto 5.2 % (2-4); Hematocrit 45.9 % (41-53); Hemoglobin 15.9 g/dL (13.5-17.5); Lymphocytes Absolute Auto 2400 /uL (1100-4500); Lymphocytes Percent Auto 35.1 % (25-40); Mean Corpuscular HGB Conc 34.7 % (30-36); Mean Corpuscular Hemoglobin 30.7 PG (26-34); Mean Corpuscular Volume 88.4 fL (80-100); Monocytes Absolute Auto 500 /uL (0-900); Monocytes Percent Auto 6.9 % (3-14); Neutrophils Absolute Auto 3500 /uL (1500-7000); Neutrophils Percent Auto 52.1 % (50-75); Platelet Count 168 X10^3/uL (150-400); Red Blood Cell Count 5.19 X10^6/uL (4.5-5.9); Red Cell Distribution Width 13.7 % (11.6-14.8); White Blood Cell Count 6.8 X10^3/uL (4.5-11.0)
[2023-04-09 13:02] LABS: Alanine Aminotransferase 19 IU/L (<50); Albumin 4.1 g/dL (3.5-5.0); Albumin Globulin Ratio 1.5 (1.0-2.8); Alkaline Phosphatase 80 U/L (38-126); Aspartate Aminotransferase 20 IU/L (17-59); BUN Creatinine Ratio 21.4 (6-22); Bilirubin Total 0.7 mg/dL (0.2-1.3); Blood Urea Nitrogen 15 mg/dL (9-20); Calcium 9.5 mg/dL (8.4-10.2); Carbon Dioxide 26 mmol/L (22-32); Chloride 101 mmol/L (98-107); Estimated Glomerular Filt Rate > 60 mL/min (>60); Globulin 2.7 g/dL (1.7-4.1); Glucose 177 mg/dL (80-110); HEMOLYSIS < 15 (0-50); Lipase 235 U/L (23-300); Potassium 4.1 mmol/L (3.4-5.1); Sodium 135 mmol/L (137-145); Total Protein 6.8 g/dL (6.3-8.2)
[2023-04-09 14:40] VITALS: BP 120/74; PULSE 80; RESP 16; O2SAT 97
== END 2023-04-09 14:41 | disposition home or self-care (01) ==
PROVIDERS: Emergency Provider Student in an Organized Health Care Education/Training Program; PCP Family Medicine
DX: R31.0 Gross hematuria (principal)
CPT/HCPCS: 36415; 74178; 80053; 81001; 83690; 85025; 99284; Q9967

== ENCOUNTER → 2023-04-13 07:22 | Outpatient (CLI) | payer OTHER, SELFPAY ==
[2023-04-09 15:41] VITALS: BMI 28.8
[2023-04-13 09:29] LABS: Prostate Specific Antigen 1.24 ng/mL (0.10-4.00)
[2023-04-14 07:03] LABS: Labcorp Hemoglobin (Hb) A1c 8.6 % (4.8-5.6)
== END ==
PROVIDERS: PCP Family Medicine; Referring Provider Family Medicine; Visit Provider Family Medicine
DX: Z12.5 Encounter for screening for malignant neoplasm of prostate (principal)
CPT/HCPCS: 36415; 83036; 84153

== ENCOUNTER 2023-05-28 07:32 | Day surgery (SDC) | payer OTHER, SELFPAY ==
[2023-04-09 15:41] VITALS: BMI 28.8
[2023-05-28] VITALS (9 sets, daily range): BP systolic 106–128; BP diastolic 68–84; PULSE 82–95; RESP 12–17; TEMP 36.3–36.9; O2SAT 97–100; BMI 25.9
--- NOTE | 2023-05-28 | PATH_ITS ---
[facility] Accession Number: [id number] No. of containers..01 Tissue . 01 Material submitted: . bladder - RIGHT POSTERIOR LATERAL BLADDER TUMOR . 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 Negative for invasive malignancy. Muscularis propria not present in specimen. MRV 06/04/2023 1541 Local . 01 Comment: This case is also reviewed by Dr. Padmaja Phipps, who concurs with the given interpretation. . 01 Electronically signed: . Marlin Nolen MD, Pathologist NPI- [id number] . 01 Gross description: . The specimen is received in formalin labeled with the patient's name, , and R posterior lateral bladder tumor consists of multiple shah soft tissue fragments aggregating to 1.7 x 1.1 x 0.2 cm. Filtered and submitted entirely in cassette A1. ([id number]) /MRV 05/30/2023 1241 Local . 01 Pathologist provided ICD-10: D49.4 . 01 CPT . 590734 Specimen Comment: A courtesy copy of this report has been sent to [phone] Performed at: 01 [facility] [address] [place] [address] [address], [place], [place] [id number] MD Satinder Almaraz MD Phone: [phone]
[2023-05-28] MEDS: LACTATED RINGERS 1,000 ML 21 ML IV (08:21)
--- NOTE | 2023-05-28 08:26 | PM.PREOP ---
Pre-operative Note COVID-19 COVID-19 status: Not tested Criteria for continued procedure: Delay expected to result in less-positive ultimate med/surg outcome and Non-surgical alternatives not available or appropriate per current SOC Interval Note History & Physical reviewed/Exam performed by Physician: Yes Changes to H&P: No
[2023-05-28] MEDS: CEFAZOLIN 2 GM/100 ML PREMIX 100 ML IV (09:01)
--- NOTE | 2023-05-28 09:08 | SUR.OPER ---
Lithotomy on padded OR bed, head on pillow, arms secured on padded arm boards at <90 degrees abduction. Legs secured in padded yellow fins stirrups.
[2023-05-28] MEDS: WATER FOR INJECTION,STERILE 20 ML, mitoMYcin 20 MG INTRAVESIC (09:18)
--- NOTE | 2023-05-28 09:29 | P.OP_ITS ---
Procedure & Clinicians Procedure: Transurethral resection of bladder tumor small with instillation of mitomycin and Kruger catheter placement. Same procedure as scheduled: Yes Indications: This 62-year-old male had imaging which revealed a filling defect within the bladder. Patient underwent flexible cystoscopy which revealed this to be a papillary neoplasm in the right posterolateral bladder he presents this time for resection and instillation of mitomycin-C. Surgeon: Pancho Santizo Click Yes if Unassisted: Yes Anesthesia Type: General Operative Notes Findings: Findings: Urethral meatus is normal, urethra is normal along its length with normal mucosa, the sphincter as well coapted, the prostate exhibits moderate obstructive character. The right and left ureteral orifice in normal position with clear efflux. Just lateral to the right ureteral orifices a cm and a half size papillary tumor. The remainder of the bladder mucosa is normal. The tumor was resected completely and a margin fulgurated. A [address]ruger catheter was left in place with 14 cc in the balloon. Patient had mitomycin in stilled at the end of the procedure. Closure Type: not applicable Specimen(s): other (Right posterolateral bladder tumor) Applied: catheter ([address] Kruger catheter with 14 cc in the balloon.) Estimated Blood Loss (mL): 5 Blood products transfused: none Procedure in detail: Procedure in detail: After informed % was obtained, the patient was identified and brought to the operating room where he was placed in his supine position on the table. Once on the table the patient had anesthesia induced and maintained. Ensuring an adequate level of anesthesia patient was transitioned to the lithotomy position where he was prepped, draped, prepared for Transurethral procedure. After prepping, draping, ensuring an adequate level of anesthesia and time-out a 22 Latvian cystoscope was passed through the urethra prostate and in the bladder were cystoscopy is performed with the 30 and 70 degree lens. The biopsy/resecting forceps was inserted and the tumor was sequentially resected. Of note careful attention to the position of the right ureteral orifice was maintained at all time. With the tumor resected Bugbee electrode was inserted in the sites of bleeding were controlled. The margins were fulgurated. There w as no tumor left and hemostasis was good. There was clear efflux of urine from the right ureteral orifice after the procedure was completed. The bladder was left full after it had been drained filled drained filled and hemostasis assured and the scope was removed leaving the bladder full. The 20 Latvian catheter was then passed through the urethral prostate and in the bladder without difficulty the balloon was filled with 14 cc of sterile water and placed to gravity drainage draining all the fluid out. The catheter plug was inserted in the mitomycin instilled. At this point the patient was awakened having tolerated the procedure well there were no complications patient was transferred to the postanesthesia care unit for recovery. He will be discharged and then follow-up in my office in approximately 10 days. Again there were no complications. Complications: none Post-operative Condition: stable Disposition: PACU Plan for aftercare: Discharge to home with Kruger catheter after mitomycin dwell time.
[2023-05-28] MEDS: OXYBUTYNIN 5 MG TABLET PO (09:51)
[2023-05-28] MEDS: PHENAZOPYRIDINE 100 MG TABLET 200 MG PO (09:51)
[2023-05-28] MEDS: OXYCODONE IR 5 MG TABLET PO (11:31)
[2023-05-28] MEDS: ACETAMINOPHEN 325 MG TABLET 650 MG PO (11:33)
--- NOTE | 2023-05-28 13:03 | SUR.PHASEII ---
1000 - received pt to phase II. Mytomycin instillation continues. pt repositioning self from side to side as instructed. Will empty cath @ 1115. Call light in place. SR up x 2. No complaints voiced. Sipping water. 1100 - vvs. see flow record. 1115. Mytomycin emptied with chemo precautions in place. Cath secure repositioned and leg bag secured. Instructions for care of [place], bedside bag and leg bag given. Pt and verbalize understanding. 1215 remains at bedside. IV fluids continue to infuse per pt and spouse request.
== END 2023-05-28 12:34 | disposition home or self-care (01) ==
PROVIDERS: PCP Family Medicine; Referring Provider Urology; Visit Provider Urology
PROC: 0TBB8ZZ Excision of Bladder, Via Natural or Artificial Opening Endoscopic (ICD-10-PCS; CPT 52234; principal; 2023-05-28 09:00)
DX: D49.4 Neoplasm of unspecified behavior of bladder (principal); R93.89 Abnormal findings on diagnostic imaging of other specified body structures; R31.0 Gross hematuria
CPT/HCPCS: 52234; 82962; J0690; J1100; J2250; J2405; J2704; J3010; J9280

== ENCOUNTER → 2023-08-30 07:27 | Outpatient (CLI) | payer OTHER, SELFPAY ==
[2023-04-09 15:41] VITALS: BMI 28.8
[2023-08-30 08:01] LABS: Hemoglobin A1C% w Est Avg Glu 8.6 % (4.0-6.0)
[2023-08-30 08:08] LABS: Alanine Aminotransferase 16 IU/L (<50); Albumin 4.1 g/dL (3.5-5.0); Albumin Globulin Ratio 1.5 (1.0-2.8); Alkaline Phosphatase 80 U/L (38-126); Aspartate Aminotransferase 18 IU/L (17-59); BUN Creatinine Ratio 19.8 (6-22); Blood Urea Nitrogen 17 mg/dL (9-20); Calcium 9.7 mg/dL (8.4-10.2); Carbon Dioxide 29 mmol/L (22-32); Chloride 101 mmol/L (98-107); Estimated Glomerular Filt Rate > 60 mL/min (>60); Globulin 2.8 g/dL (1.7-4.1); Glucose 208 mg/dL (80-110); HEMOLYSIS < 15 (0-50); Potassium 4.2 mmol/L (3.4-5.1); Sodium 137 mmol/L (137-145); Total Protein 6.9 g/dL (6.3-8.2)
== END ==
PROVIDERS: PCP Family Medicine; Referring Provider Family Medicine; Visit Provider Family Medicine
DX: E11.9 Type 2 diabetes mellitus without complications (principal); I10 Essential (primary) hypertension
CPT/HCPCS: 36415; 80053; 83036

== ENCOUNTER → 2023-12-04 13:07 | Outpatient (CLI) | payer OTHER, SELFPAY ==
[2023-04-09 15:41] VITALS: BMI 28.8
--- NOTE | 2023-12-07 16:55 | DIAB.MNT ---
Initial Diabetes Medical Nutrition Therapy Assessment Name: Osiel Mcclain Date: 12/04/23 Time: 115-215p Dx: Type II Diabetes Osiel presents for initial Dm visit with , Martita. Reports PMH of Dm x 10 years. Recent HgA1c of 8.6%. 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 Has cut down on junk food, but looking for more ways to change diet. Needs breakfast ideas. cooks and is gluten free. Diet Recall: 7a: coffee, 2tsp sugar, eng muffin with butter or pb or cheese, banana OR 1c yogurt with handful granola and berries 1p: sandwich or leftovers 6p: chicken morrison OR chicken with broccoli OR tacos x 2 OR protein, veggies and 1c rice or 1 med potato or 1c quinoa ETOH: 1-2x per week water 16oz x 4 Anthropometrics: Ht: 69 Wt: 179# 09/2023 Physical Activity: 7000 steps per day when working, not sure now. Less active per report. Self-Monitoring Blood Glucose: Difficulty with being consistent. FBG often around 150mg/dl, elevated. No pc readings. Diabetes Medications: 1000mg Metformin BID 10mg Glipizide BID 14mg Rybelsus Pertinent Labs: HgA1c: 9.4% 12/2022 8.6% 03/2023 8.6% 08/2023 Past Medical History: (Last Updated 06/05/23 @ 14:24 by Pancho Santizo MD) Abnormal findings on imaging test Bladder tumor Cerebellar infarct Old Cholelithiasis Chronic back pain (~1975) Chronic ethmoidal sinusitis Diverticular disease (~2015) Essential hypertension (~2010) Foot pain (~2010) Gross hematuria Herpes (~1976) Incomplete emptying of bladder Lower urinary tract symptoms Mixed hyperlipidemia (10/03/17) Secondhand smoke exposure Tinnitus Type 2 diabetes mellitus without complication (10/03/17) Vertigo (~2018) Nutrition Rx: Carbohydrates: Meal:45g Snack:15-30g Nutrition Diagnosis: - Excessive CHO intake r/t nutrition knowledge deficit aeb diet recall - Physical inactivity r/t retired and no program aeb pt report - Self monitoring deficit r/t stage of change barrier to SMBG aeb not currently checking SMBG consistently Intervention: This participant was very receptive. Provided appropriate educational handouts. Discussed the following topics: Completed intake assessment. Discussed barriers to care. HgA1c, its correlation to blood glucose numbers, and rationale for goal Importance of self-monitoring, how often, and when to check. Suggested checking at different times to evaluate meals Plate Method, impact of macronutrients on blood sugar, meal timing, carbohydrate counting, pairing macronutrients and spreading out carbohydrates for better blood glucose management Recommended servings for carbohydrates at meals and snacks Heart health nutrition Brainstormed appropriate breakfast ideas based on food preferences Role of physical activity and following provider guidelines for safety Label reading and increasing fiber intake Created SMART goals for patient self-care and success. Goals: Aim for 45g CHO at meals Check BG 1-2x per day and bring next visit Consider daily physical activity Look for 2-5g fiber per serving of bread Follow-up: JUS SHETH follow-up in 2-3 weeks Hui Garcia RDN, HARINIES Certified Diabetes Care and Donor Recruiter P: [phone] Thank you for this referral
== END ==
PROVIDERS: PCP Family Medicine; Referring Provider Family Medicine; Visit Provider Family Medicine
DX: E11.9 Type 2 diabetes mellitus without complications (principal); Z79.84 Long term (current) use of oral hypoglycemic drugs; Z71.3 Dietary counseling and surveillance
CPT/HCPCS: 97802

== ENCOUNTER → 2023-12-11 07:02 | Outpatient (CLI) | payer OTHER, SELFPAY ==
[2023-04-09 15:41] VITALS: BMI 28.8
[2023-12-11 08:03] LABS: Hemoglobin A1C% w Est Avg Glu 8.5 % (4.0-6.0)
[2023-12-11 08:15] LABS: Alanine Aminotransferase 14 IU/L (<50); Albumin 4.2 g/dL (3.5-5.0); Albumin Globulin Ratio 1.5 (1.0-2.8); Alkaline Phosphatase 91 U/L (38-126); Aspartate Aminotransferase 19 IU/L (17-59); BUN Creatinine Ratio 20.9 (6-22); Bilirubin Total 1.1 mg/dL (0.2-1.3); Blood Urea Nitrogen 19 mg/dL (9-20); Calcium 9.8 mg/dL (8.4-10.2); Carbon Dioxide 27 mmol/L (22-32); Chloride 104 mmol/L (98-107); Cholesterol 198 mg/dL (140-199); Estimated Glomerular Filt Rate > 60 mL/min (>60); Globulin 2.8 g/dL (1.7-4.1); Glucose 162 mg/dL (80-110); HDL Cholesterol 48 mg/dL (40-60); HEMOLYSIS < 15 (0-50); LDL Cholesterol Calculated 116 mg/dL (<100); Potassium 4.1 mmol/L (3.4-5.1); Sodium 138 mmol/L (137-145); Triglycerides 170 mg/dL (35-150)
[2023-12-11 08:44] LABS: TSH w/ Reflex to FT4 1.23 uIU/mL (0.47-4.68)
[2023-12-12 03:52] LABS: Apolipoprotein B 104 mg/dL (<90)
== END ==
PROVIDERS: PCP Family Medicine; Referring Provider Family Medicine; Visit Provider Family Medicine
DX: E11.9 Type 2 diabetes mellitus without complications (principal); E78.2 Mixed hyperlipidemia; I10 Essential (primary) hypertension
CPT/HCPCS: 36415; 80053; 80061; 82172; 83036; 84443

== ENCOUNTER → 2023-12-24 15:57 | Outpatient (ROUT) | payer OTHER, SELFPAY ==
[2023-04-09 15:41] VITALS: BMI 28.8
[2023-12-25 09:15] LABS: Fecal Immunochemical Test Negative (Negative)
== END ==
PROVIDERS: PCP Family Medicine; Visit Provider Family Medicine
DX: Z12.11 Encounter for screening for malignant neoplasm of colon (principal)
CPT/HCPCS: 82274

== ENCOUNTER → 2024-01-02 10:59 | Outpatient (CLI) | payer OTHER, SELFPAY ==
[2023-04-09 15:41] VITALS: BMI 28.8
--- NOTE | 2024-01-10 16:19 | DIAB.MNTFU ---
Follow-up Diabetes Medical Nutrition Therapy Assessment Name: Osiel Mcclain Date: 01/02/24 Time: 11a-12p Dx: Type II Diabetes Osiel presents for follow-up visit, accompanied by Martita. Has cut out bread. Has been increasing activity. Has been reading food labels. Diet recall indicates low carb meals, veggies, and protein. >12 hour fasting overnight and waking with FBG elevations. States he and Martita have discussed potential for HS insulin based on morning hyperglycemia. Interested in CGM. Anthropometrics: Ht: 69 Wt: 180# reported Physical Activity: started bike riding, gardening, walking 3x per week x 30-45 min, 4500 steps or more daily Self-Monitoring Blood Glucose: FBG all >130mg/dl goal. Limited after meal readings, though they are mostly elevated in previous weeks, ie 190-261mg/dl, one readings 166mg/dl. May benefit from additional DM therapy. Date Pre Post Pre Post Pre Post HS 12/23 184 12/24 246 12/25 165 12/26 151 188 12/27 195 12/28 230 12/30 163 Diabetes Medications: 1000mg Metformin BID 10mg Glipizide BID 14mg Rybelsus Pertinent Labs: HgA1c: 9.4% 12/2022 8.6% 03/2023 8.6% 08/2023 Past Medical History: (Last Updated 12/13/23 @ 08:06 by Praneeth Singh MD) Abnormal findings on imaging test Bladder tumor Cerebellar infarct Old Cholelithiasis Chronic back pain (~1975) Chronic ethmoidal sinusitis Diverticular disease (~2015) Essential hypertension (~2010) Foot pain (~2010) Gross hematuria Herpes (~1976) Incomplete emptying of bladder Lower urinary tract symptoms Mixed hyperlipidemia (10/03/17) Secondhand smoke exposure Tinnitus Type 2 diabetes mellitus without complication (10/03/17) Vertigo (~2018) Welcome to Medicare preventive visit Nutrition Rx: Carbohydrates: Meal:45g Snack:15-30g Nutrition Diagnosis: - Excessive CHO intake r/t nutrition knowledge deficit aeb diet recall - improved - Physical inactivity r/t retired and no program aeb pt report- imprved - Self monitoring deficit r/t stage of change barrier to SMBG aeb not currently checking SMBG consistently - improved Intervention: This participant was very receptive. Provided appropriate educational handouts. Discussed the following topics: Blood sugar review and trends. Impact of food intake, hormones, medications on results. Diabetes Medications: options, actions, SE Meal planning and carb counting review Physical activity plan and progress CGM options, benefits, precautions, indications, guided pt on self placement Created SMART goals for patient self-care and success. Goals: Aim for 45g CHO at meals- met Check BG 1-2x per day and bring next visit- met Consider daily physical activity - met Look for 2-5g fiber per serving of bread- met Wear CGM x 14 days- new Try HS snack- new Follow-up: [facility] follow-up in January for 1:1 f/u and classes. Hui Garcia RDN, [facility]ES Certified Diabetes Care and Medical Record Consultant P: [phone] Thank you for this referral
== END ==
PROVIDERS: PCP Family Medicine
DX: E11.9 Type 2 diabetes mellitus without complications (principal); Z79.84 Long term (current) use of oral hypoglycemic drugs; Z71.3 Dietary counseling and surveillance
CPT/HCPCS: 97803

== ENCOUNTER → 2024-01-22 09:38 | Outpatient (CLI) | payer OTHER, SELFPAY ==
[2023-04-09 15:41] VITALS: BMI 28.8
--- NOTE | 2024-01-31 11:34 | DIAB.FU ---
Diabetes Education Class Series: Diabetes and Nutrition Name: Osiel Mcclain Date: 01/22/24 Time: [phone] Osiel presents with , Martita. States he is working on diet changes for newly dx DM. Class topics covered: ? Debunk nutrition myths and discuss how to sustain healthy eating long-term through moderation and variety ? Define macronutrients and determine their impact on blood sugars ? Discuss macronutrient pairing, Plate Method, and carb counting ? Review general recommendations for carbohydrates ? Practice label reading ? Discuss the role of fiber in diabetes and provide examples of sources ? Review heart health nutrition: fats, fiber, and sodium ? Determine recommendations for grocery shopping and eating out ? Discuss alcohol recommendations ? Review the role of substitute sugars in diabetes management ? Set SMART goals Goal Set: Add protein to breakfast q morning Follow-up: Diabetes Physiology and Medication Class in one week and 1:1 visit tomorrow Hui Garcia RDN, [facility] Certified Diabetes Care and Leasing Manager P: [phone] Thank you for this referral
== END ==
LOC: DIET 09:38
PROVIDERS: PCP Family Medicine; Referring Provider Family Medicine
DX: E11.9 Type 2 diabetes mellitus without complications (principal); Z71.3 Dietary counseling and surveillance; Z79.84 Long term (current) use of oral hypoglycemic drugs
CPT/HCPCS: G0109

== ENCOUNTER → 2024-01-23 13:02 | Outpatient (CLI) | payer OTHER, SELFPAY ==
[2023-04-09 15:41] VITALS: BMI 28.8
--- NOTE | 2024-01-31 11:44 | DIAB.FU ---
Follow-up Diabetes Education Assessment Name: Osiel Mcclain Date: 01/23/24 Time: 105-2p Dx: Type II Diabetes Osiel presents with , Martita. Wore CGM for 14 days. CGM indicated low variability indicating well managed CHO intake, however persistent hyperglycemia from state of DM. Cannot take Jardiance due to SE of dizziness. May benefit from GLP1 or insulin therapy. Reports increased veggie intake and limiting CHO intake. Physical Activity: No changes. Continues with lower activity since retiring. Self-Monitoring Blood Glucose: Glucose variability <36% indicating no large excursions, however regularly waking and sustaining high BG through the day and night. 14 TIR: 10% very high 75% high 15% in range 0% low or very low avmg/dl GMI: 8.4% glucose variability 15.1% Diabetes Medications: 1000mg Metformin BID 10mg Glipizide BID 14mg Rybelsus Pertinent Labs: HgA1c: 9.4% 12/2022 8.6% 03/2023 8.6% 08/2023 Past Medical History: (Last Updated 12/13/23 @ 08:06 by Praneeth Singh MD) Abnormal findings on imaging test Bladder tumor Cerebellar infarct Old Cholelithiasis Chronic back pain (~1975) Chronic ethmoidal sinusitis Diverticular disease (~2015) Essential hypertension (~2010) Foot pain (~2010) Gross hematuria Herpes (~1976) Incomplete emptying of bladder Lower urinary tract symptoms Mixed hyperlipidemia (10/03/17) Secondhand smoke exposure Tinnitus Type 2 diabetes mellitus without complication (10/03/17) Vertigo (~2018) Welcome to Medicare preventive visit Intervention: This participant was very receptive. Provided appropriate educational handouts. Discussed the following topics: Recent blood sugar results and trends Medication management options, precautions, SE, pros/cons Review of general nutrition recommendations and current intake Physical activity plan and impact on blood sugars Prevention of complications Created SMART goals for patient self-care and success. Goals: Wear CGM x 14 days- met Try HS snack- d/c Add protein to breakfast- new Ride bike 2x per week- new Follow-up: [facility] follow-up in 2 week for class 2 of 3 for DM ed series and then 1:1 thereafter. Osiel and Martita asked RD to message provider about potential medication options for better Dm management. Hui Garcia RDN, [facility] Certified Diabetes Care and Medication Reconciliation Technician P: [phone] Thank you for this referral
== END ==
PROVIDERS: PCP Family Medicine; Referring Provider Family Medicine
DX: E11.65 Type 2 diabetes mellitus with hyperglycemia (principal); Z79.84 Long term (current) use of oral hypoglycemic drugs; Z71.3 Dietary counseling and surveillance
CPT/HCPCS: G0108

== ENCOUNTER → 2024-02-05 09:33 | Outpatient (CLI) | payer OTHER, SELFPAY ==
[2023-04-09 15:41] VITALS: BMI 28.8
--- NOTE | 2024-02-05 11:56 | DIAB.FU ---
Diabetes Education Class Series: Diabetes Physiology and Medications Name: Osiel Mcclain Date: 02/05/24 Time: [id number] Osiel presents with Martita, , for Dm class 2 of 3. Reports recent eye appt with good results. Reports wanting to change medication for better DM results. States med student suggested insulin. Discussed different options (injectable GLP1 vs SGLT2i other than Jardiance vs insulin). Encouraged him to see PCP in February for med discussion. Biking 2x/week. Added eggs to breakfast Class topics covered: ? Diabetes pathophysiology ? Discuss different types of diabetes ? Review criteria for diagnosing diabetes ? Review HgA1c measurement and associated blood sugars ? Review blood sugar monitoring safety, technique, and goals ? Discuss ways to reduce complications associated with diabetes, includes microvascular and macrovascular complications ? Review diabetes medications types, action, and side effects ? Health care visits recommended for people with T2DM ? Immunization recommended for people with T2DM ? SMART goals review Goal Set: Continue biking 2x per week Follow-up: Diabetes Lifestyle and Ongoing Support Class next week Hui Garcia RDN, [facility] Registered Dietitian, Certified Diabetes Care and Mercury Recoverer [phone] [email or web address]
== END ==
PROVIDERS: PCP Family Medicine; Referring Provider Family Medicine
DX: E11.9 Type 2 diabetes mellitus without complications (principal); Z71.3 Dietary counseling and surveillance; Z79.84 Long term (current) use of oral hypoglycemic drugs
CPT/HCPCS: G0109

== ENCOUNTER → 2024-02-12 09:31 | Outpatient (CLI) | payer OTHER, SELFPAY ==
[2023-04-09 15:41] VITALS: BMI 28.8
--- NOTE | 2024-02-27 13:36 | DIAB.FU ---
Diabetes Education Class Series: Diabetes Lifestyle Change and Ongoing Support Name: Osiel Mcclain Date: 02/12/24 Time: [id number] Presents with for last class. States he has limited ETOH and improved nutrition habits in general. Trying to make good choices easier. Still wanting to work on exercise. Class topics covered: ? Discuss the difference between physical activity and exercise ? Determine physical activity benefits and impact on diabetes ? Review physical activity recommendations and safety ? Discuss emergency preparedness ? Discuss diabetes and emotions (diabetes burnout/distress) ? Review and practice stress management techniques ? Review support groups and community resources ? Discuss the role of family support in diabetes care ? What is going well? Challenges of diabetes? ? Set SMART goals Follow-up: 1:1 visit follow-up Hui Garcia RDN, [facility] Registered Dietitian, Certified Diabetes Care and Engineering Intern [phone] [email or web address]
== END ==
PROVIDERS: PCP Family Medicine; Referring Provider Family Medicine
DX: E11.9 Type 2 diabetes mellitus without complications (principal); E78.2 Mixed hyperlipidemia; I10 Essential (primary) hypertension; Z71.3 Dietary counseling and surveillance
CPT/HCPCS: G0109

== ENCOUNTER → 2024-03-10 06:48 | Outpatient (CLI) | payer OTHER, SELFPAY ==
[2023-04-09 15:41] VITALS: BMI 28.8
[2024-03-10 08:24] LABS: Alanine Aminotransferase 15 IU/L (<50); Albumin 4.2 g/dL (3.5-5.0); Albumin Globulin Ratio 1.6 (1.0-2.8); Alkaline Phosphatase 88 U/L (38-126); Aspartate Aminotransferase 19 IU/L (17-59); BUN Creatinine Ratio 19.6 (6-22); Bilirubin Total 0.9 mg/dL (0.2-1.3); Blood Urea Nitrogen 18 mg/dL (9-20); Calcium 9.4 mg/dL (8.4-10.2); Carbon Dioxide 29 mmol/L (22-32); Chloride 103 mmol/L (98-107); Cholesterol 221 mg/dL (140-199); Estimated Glomerular Filt Rate > 60 mL/min (>60); Globulin 2.6 g/dL (1.7-4.1); Glucose 205 mg/dL (80-110); HDL Cholesterol 54 mg/dL (40-60); HEMOLYSIS < 15 (0-50); LDL Cholesterol Calculated 139 mg/dL (<100); Potassium 4.2 mmol/L (3.4-5.1); Sodium 138 mmol/L (137-145); Total Protein 6.8 g/dL (6.3-8.2); Triglycerides 139 mg/dL (35-150)
[2024-03-10 08:43] LABS: Hemoglobin A1C% w Est Avg Glu 8.2 % (4.0-6.0)
[2024-03-11 03:36] LABS: Apolipoprotein B 113 mg/dL (<90)
== END ==
LOC: LAB 06:50
PROVIDERS: PCP Family Medicine; Referring Provider Family Medicine; Visit Provider Family Medicine
DX: E78.2 Mixed hyperlipidemia (principal); E11.9 Type 2 diabetes mellitus without complications; I10 Essential (primary) hypertension
CPT/HCPCS: 36415; 80053; 80061; 82172; 83036

== ENCOUNTER → 2024-06-09 08:13 | Outpatient (CLI) | payer OTHER, SELFPAY ==
[2023-04-09 15:41] VITALS: BMI 28.8
[2024-06-09 09:18] LABS: Hemoglobin A1C% w Est Avg Glu 9.7 % (4.0-6.0)
[2024-06-09 09:26] LABS: Alanine Aminotransferase 15 IU/L (<50); Albumin 4.1 g/dL (3.5-5.0); Albumin Globulin Ratio 1.6 (1.0-2.8); Alkaline Phosphatase 115 U/L (38-126); Aspartate Aminotransferase 17 IU/L (17-59); BUN Creatinine Ratio 20.5 (6-22); Bilirubin Total 0.8 mg/dL (0.2-1.3); Blood Urea Nitrogen 18 mg/dL (9-20); Carbon Dioxide 25 mmol/L (22-32); Chloride 102 mmol/L (98-107); Cholesterol 162 mg/dL (140-199); Estimated Glomerular Filt Rate > 60 mL/min (>60); Globulin 2.5 g/dL (1.7-4.1); Glucose 230 mg/dL (80-110); HDL Cholesterol 52 mg/dL (40-60); HEMOLYSIS < 15 (0-50); LDL Cholesterol Calculated 84 mg/dL (<100); Potassium 4.4 mmol/L (3.4-5.1); Sodium 138 mmol/L (137-145); Total Protein 6.6 g/dL (6.3-8.2); Triglycerides 132 mg/dL (35-150)
[2024-06-10 03:14] LABS: Apolipoprotein B 81 mg/dL (<90)
== END ==
PROVIDERS: PCP Family Medicine; Referring Provider Family Medicine; Visit Provider Family Medicine
DX: E11.9 Type 2 diabetes mellitus without complications (principal); I10 Essential (primary) hypertension; E78.2 Mixed hyperlipidemia
CPT/HCPCS: 36415; 80053; 80061; 82172; 83036

== ENCOUNTER → 2024-06-24 10:04 | Outpatient (CLI) | payer OTHER, SELFPAY ==
[2023-04-09 15:41] VITALS: BMI 28.8
--- NOTE | 2024-06-24 10:11 | DIAB.MNTFU ---
Follow-up Diabetes Medical Nutrition Therapy Assessment Name: Osiel Mcclain Date: 06/24/24 Time: 1010-11a Dx: Type II Diabetes Osiel presents for Dm visit today. Reports increasing GLP1 to 0.5mg per PCP recs. Received 2 CGM sensors samples from PCP. Wore CGM for 14 days. Last month he was travelling and eating much more CHO. Daughter living with him, and able to spend more time with both grandchildren. Travelling back and forth from [place] to see grandson, which has impacted diet and sleep. Helping with grandson results in reduced sleep and more take out with family. Water intake seems low per diet recall. Has concerns for leg cramps and electrolytes. Reports increased fatigue. This RD suspects this is due to his increased elevated BG. CGM indicates significant increase in BG since last CGM wear. Has increased his Ozempic dose, has questions on next dose amount. Also reports some high cost over $200 for 6 weeks due to [place] [facility]. Prior to this he ws paying <$50. Diet recall: 7a: coffee with <1tsp sugar, banana, greenlandic plan yogurt +/- honey and fruit (peaches or berries) 1p: small sandwich and 8oz milk 7p: chicken, veggie and 1/2-1c CHO water 4-6cups per day Physical Activity: None Self-Monitoring Blood Glucose: Increased hyperglycemia since last CGM. BG consistently above 180mg/dl from fasting and thereafter. BG >250mg went from 10% in January to 56%. 14 TIR: 56% very high 43% high 1% in range 0% low or very low avmg/dl GMI: NA% glucose variability 17.3% Last Visit 14 TIR: 10% very high 75% high 15% in range 0% low or very low avmg/dl GMI: 8.4% glucose variability 15.1% Diabetes Medications: 1000mg Metformin BID 10mg Glipizide BID 0.5 Ozempic Pertinent Labs: HgA1c: 9.4% 12/2022 8.6% 03/2023 8.6% 08/2023 8.5% 11/2023 8.2% 02/2024 9.7% 05/2024 Past Medical History: (Last Updated 12/13/23 @ 08:06 by Praneeth Singh MD) Abnormal findings on imaging test Bladder tumor Cerebellar infarct Old Cholelithiasis Chronic back pain (~1975) Chronic ethmoidal sinusitis Diverticular disease (~2015) Essential hypertension (~2010) Foot pain (~2010) Gross hematuria Herpes (~1976) Incomplete emptying of bladder Lower urinary tract symptoms Mixed hyperlipidemia (10/03/17) Secondhand smoke exposure Tinnitus Type 2 diabetes mellitus without complication (10/03/17) Vertigo (~2018) Welcome to Medicare preventive visit Nutrition Rx: Carbohydrates: Meal:30-45g Snack:15-30g Intervention: This participant was very receptive. Provided appropriate educational handouts. Discussed the following topics: Strategies for reducing CHO and increasing veggie intake Airing on low CHO side until medications help bring BG more in range and we can discuss a more moderate to low CHO diet Hydration role in BG and when electrolytes may be indicated BG review and patterns Progression of BG elevations in 5 months Barriers to diet changes Fatigue relationship with BG and impact on his life Directed him in placement on new G7 sensor from PCP Created SMART goals for patient self-care and success. Goals: Wear CGM x 10 days Choose banana or other fruit at breakfast Aim for 64oz water Keep CHo at dinner to 1/2 c Follow-up: [facility] follow-up in 2-3 weeks Hui Garcia RDN, [facility] Certified Diabetes Care and Patent Prosecution Attorney P: [phone] Thank you for this referral
== END ==
PROVIDERS: PCP Family Medicine; Referring Provider Family Medicine
DX: E11.65 Type 2 diabetes mellitus with hyperglycemia (principal); Z71.3 Dietary counseling and surveillance; Z79.84 Long term (current) use of oral hypoglycemic drugs; Z79.85 Long-term (current) use of injectable non-insulin antidiabetic drugs
CPT/HCPCS: 97803

== ENCOUNTER → 2024-07-16 12:56 | Outpatient (CLI) | payer OTHER, SELFPAY ==
[2023-04-09 15:41] VITALS: BMI 28.8
--- NOTE | 2024-07-16 13:51 | DIAB.MNTFU ---
Follow-up Diabetes Medical Nutrition Therapy Assessment Name: Osiel Mcclain Date: 07/16/24 Time: 1-145p Dx: Type II Diabetes Osiel presents for Dm visit today. Reports plans for increasing GLP1 to 1mg per PCP recs next week. If needing 2mg after, will need updated rx. Some concerns about affordability for GLP1 d/t donut hole. Denies any SE so far. Sees PCP in September. If hyperglycemia persists after one month of 1mg, RD will plan to message PCP about potential plans-- will evaluate at next visit. Reports continued struggles with diet when travelling to [place] to see daughter and grandchild. Eating out more frequently during that time. Limited veggies. Does endorse satiety and reduced pleasure in eating. Still eating 3-4x per day, but overall endorses smaller portions, consistent with variation <36% in CGM and std deviation of 40mg/dl. Eating small portion bananas and away from breakfast, as discussed. Still finding adding more water to his diet challenging. Bought a new water bottle. CGM trial will conclude soon, plans to OTC options. Physical Activity: None Self-Monitoring Blood Glucose: Slight improvement in time in range, but well below goal of in range 70%. States he is feeling encouraged by Ozempic's impact on BG so far and impact it may have with titration up. 14 TIR: 44% very high 51% high 5% in range 0% low or very low avmg/dl GMI: 9.1% glucose variability 16.5% Last Visit 14 TIR: 56% very high 43% high 1% in range 0% low or very low avmg/dl GMI: NA% glucose variability 17.3% Diabetes Medications: 1000mg Metformin BID 10mg Glipizide BID 0.5 Ozempic Pertinent Labs: HgA1c: 9.4% 12/2022 8.6% 03/2023 8.6% 08/2023 8.5% 11/2023 8.2% 02/2024 9.7% 05/2024 Past Medical History: (Last Updated 12/13/23 @ 08:06 by Praneeth Singh MD) Abnormal findings on imaging test Bladder tumor Cerebellar infarct Old Cholelithiasis Chronic back pain (~1975) Chronic ethmoidal sinusitis Diverticular disease (~2015) Essential hypertension (~2010) Foot pain (~2010) Gross hematuria Herpes (~1976) Incomplete emptying of bladder Lower urinary tract symptoms Mixed hyperlipidemia (10/03/17) Secondhand smoke exposure Tinnitus Type 2 diabetes mellitus without complication (10/03/17) Vertigo (~2018) Welcome to Medicare preventive visit Nutrition Rx: Carbohydrates: Meal:30-45g Snack:15-30g Intervention: This participant was very receptive. Provided appropriate educational handouts. Discussed the following topics: OTC options for CGM Being sure to restart CGM or FBG checks before next visit to evaluate GLP1 titration Eating out strategies and adding veggies Hydration strategies Ozempic impact on satiety Created SMART goals for patient self-care and success. Goals: Wear CGM x 10 days- met Choose banana or other fruit at breakfast- met Aim for 64oz water- in progress Keep CHo at dinner to 1/2 c- in progress Add veggies to meals when eating out- new Check into OTC options for CGM- new Follow-up: [facility] follow-up in 5 weeks after a month of 1mg GLP1 dose. Will then evaluate whether Osiel needs to continue current meds or considerations for increased GLP1 or insulin therapy. Hui Garcia RDN, CDCES Certified Diabetes Care and Cork Insulation Installer P: [phone] Thank you for this referral
== END ==
PROVIDERS: PCP Family Medicine; Referring Provider Family Medicine
DX: E11.65 Type 2 diabetes mellitus with hyperglycemia (principal); Z79.84 Long term (current) use of oral hypoglycemic drugs; Z79.85 Long-term (current) use of injectable non-insulin antidiabetic drugs; Z71.3 Dietary counseling and surveillance; I10 Essential (primary) hypertension; E78.5 Hyperlipidemia, unspecified
CPT/HCPCS: 97803

== ENCOUNTER → 2024-08-19 09:55 | Outpatient (CLI) | payer OTHER, SELFPAY ==
[2023-04-09 15:41] VITALS: BMI 28.8
--- NOTE | 2024-08-19 10:14 | DIAB.MNTFU ---
Follow-up Diabetes Medical Nutrition Therapy Assessment Name: Osiel Mcclain Date: 08/19/24 Time: -4102e Dx: Type II Diabetes Osiel presents for Dm visit today. Reports plans increasing GLP1 to 1mg. BG have improved significant, though still below goal for in range BG. He would like to continue with lifestyle changes and current dose of GLP1. This RD agrees at this time, however likely will need higher dose of GLP1 unless he can make significant changes, which do seem to be a challenge currently. Continue to travel to [place] and back to help care for and visit both grandchildren. States exercise is difficult due to having to care for grandchild quite a bit at this time. GLP1 therapy continue to impact his satiety. Reports he is happy with smaller portions, especially with sweets. Though states diet is going mixed. Feels he could be hydrating better, 5-6c per day reported. Eating more veggies at home, but still eating out frequently and no veggies for those meals. Hydration barrier, h/o bladder cancer, though scans have been going well he feels his urinary control is sub par. Thinks increasing water may or may not exacerbate this symptom. Physical Activity: None. Reports 3000 steps per day. Was much more active pre longterm with 7000 steps per day. Reports hills in his area as a barrier and helping care for 7 mo old grandchild. Self-Monitoring Blood Glucose: Big improvement since last visit, though still under goal of 70% in range. Will continue to monitor. Wearing OTC Stelo. 14 TIR: 4% very high 46% high 50% in range 0% low or very low avmg/dl GMI: 7.6% glucose variability 20.9% Last Visit 14 TIR: 44% very high 51% high 5% in range 0% low or very low avmg/dl GMI: 9.1% glucose variability 16.5% Diabetes Medications: 1000mg Metformin BID 10mg Glipizide BID 1mg Ozempic Pertinent Labs: HgA1c: 9.4% 12/2022 8.6% 03/2023 8.6% 08/2023 8.5% 11/2023 8.2% 02/2024 9.7% 05/2024 Past Medical History: (Last Updated 12/13/23 @ 08:06 by Praneeth Singh MD) Abnormal findings on imaging test Bladder tumor Cerebellar infarct Old Cholelithiasis Chronic back pain (~1975) Chronic ethmoidal sinusitis Diverticular disease (~2015) Essential hypertension (~2010) Foot pain (~2010) Gross hematuria Herpes (~1976) Incomplete emptying of bladder Lower urinary tract symptoms Mixed hyperlipidemia (10/03/17) Secondhand smoke exposure Tinnitus Type 2 diabetes mellitus without complication (10/03/17) Vertigo (~2018) Welcome to Medicare preventive visit Nutrition Rx: Carbohydrates: Meal:30-45g Snack:15-30g Intervention: This participant was very receptive. Provided appropriate educational handouts. Discussed the following topics: Ways to increase activity that might work for him Satiety impact on his desire for foods Personal goals for DM management (meds v lifestyle) Eating out Hydration strategies Created SMART goals for patient self-care and success. Goals: Add veggies to meals when eating out- in progress Check into OTC options for CGM- met Check out small stationary bike- new Aim for 6-8c water per day unless contraindicated- new Move with baby around the house- new Follow-up: [facility] follow-up in September after PCP visit. Hui Garcia RDN, [facility] Certified Diabetes Care and Associate Professor Of Music P: [phone] Thank you for this referral
== END ==
PROVIDERS: PCP Family Medicine; Referring Provider Family Medicine
DX: E11.9 Type 2 diabetes mellitus without complications (principal); Z79.84 Long term (current) use of oral hypoglycemic drugs; Z79.85 Long-term (current) use of injectable non-insulin antidiabetic drugs; Z71.3 Dietary counseling and surveillance; E78.2 Mixed hyperlipidemia; I10 Essential (primary) hypertension
CPT/HCPCS: G0270

== ENCOUNTER → 2024-09-22 16:03 | Outpatient (CLI) | payer OTHER, SELFPAY ==
[2023-04-09 15:41] VITALS: BMI 28.8
[2024-09-22 16:39] LABS: Add Manual Diff / Slide Review NO; Basophils Absolute Auto 100 /uL (0-100); Basophils Percent Auto 0.6 % (0-2); Eosinophils Absolute Auto 400 /uL (0-450); Eosinophils Percent Auto 4.2 % (2-4); Hematocrit 47.5 % (41-53); Hemoglobin 16.4 g/dL (13.5-17.5); Lymphocytes Absolute Auto 3200 /uL (1100-4500); Lymphocytes Percent Auto 37.4 % (25-40); Mean Corpuscular HGB Conc 34.5 % (30-36); Mean Corpuscular Hemoglobin 30.5 PG (26-34); Mean Corpuscular Volume 88.3 fL (80-100); Monocytes Absolute Auto 700 /uL (0-900); Monocytes Percent Auto 7.5 % (3-14); Neutrophils Absolute Auto 4300 /uL (1500-7000); Neutrophils Percent Auto 50.3 % (50-75); Platelet Count 186 X10^3/uL (150-400); Red Blood Cell Count 5.38 X10^6/uL (4.5-5.9); Red Cell Distribution Width 14.1 % (11.6-14.8); White Blood Cell Count 8.6 X10^3/uL (4.5-11.0)
[2024-09-22 16:52] LABS: Hemoglobin A1C% w Est Avg Glu 8.1 % (4.0-6.0)
[2024-09-22 16:55] LABS: Alanine Aminotransferase 18 IU/L (<50); Albumin 4.6 g/dL (3.5-5.0); Albumin Globulin Ratio 1.9 (1.0-2.8); Alkaline Phosphatase 79 U/L (38-126); Aspartate Aminotransferase 22 IU/L (17-59); BUN Creatinine Ratio 18.8 (6-22); Bilirubin Total 0.8 mg/dL (0.2-1.3); Blood Urea Nitrogen 18 mg/dL (9-20); Calcium 10.2 mg/dL (8.4-10.2); Carbon Dioxide 26 mmol/L (22-32); Chloride 103 mmol/L (98-107); Estimated Glomerular Filt Rate > 60 mL/min (>60); Globulin 2.4 g/dL (1.7-4.1); Glucose 120 mg/dL (80-110); HEMOLYSIS < 15 (0-50); Potassium 4.4 mmol/L (3.4-5.1); Sodium 136 mmol/L (137-145)
[2024-09-22 17:25] LABS: Prostate Specific Antigen 1.03 ng/mL (0.10-4.00); TSH w/ Reflex to FT4 1.27 uIU/mL (0.47-4.68)
== END ==
PROVIDERS: PCP Family Medicine; Referring Provider Family Medicine; Visit Provider Family Medicine
DX: I10 Essential (primary) hypertension (principal); E11.9 Type 2 diabetes mellitus without complications; E78.2 Mixed hyperlipidemia
CPT/HCPCS: 36415; 80053; 82043; 82570; 83036; 84153; 84443; 85025

== ENCOUNTER → 2024-10-01 09:02 | Outpatient (CLI) | payer OTHER, SELFPAY ==
[2024-09-23 09:09] VITALS: BMI 28.8
--- NOTE | 2024-10-01 09:14 | DIAB.MNTFU ---
Follow-up Diabetes Medical Nutrition Therapy Assessment Name: Osiel Mcclain Date: 10/01/23 Time: 910-10 Dx: Type II Diabetes Osiel presents for Dm visit today. Started eating pistachios 4 days ago, and endorses some improvement in BG with higher protein. Eating oats. Yogurt with fruit. Eggs lately. Sharing meals when eating out. If BG range is not 60% or more in a month, will consider higher dose of GLP1 Diet Recall: 630a: cup of coffee 1 tsp sugar, ww toast with nut butter OR malian yogurt plain with fruit OR oatmeal x 1c with berries or part of banana 1p: leftovers 3-4p: pistachios OR mixed nuts 730p: salmon, asparagus OR jerk chicken, rice x 1/2c HS: nothing or nuts water: 8oz x 6 Thinks he could improve water intake. Reports 2016 diverticulitis, worst pain he has ever had. Was worried about nuts. Eating slower now. Getting some constipation from GLP1. Endorses BM q 2-3 days. Physical Activity: Reports 3000 steps per day. Was much more active pre jail with 7000 steps per day. Reports hills in his area as a barrier and helping care for 7 mo old grandchild. went for a walk yesterday. Plans to increase walks after daughter moves out at the end of the month. checked into small stationary bike, but has not purchased yet. Once daughter moves, may buy one. Self-Monitoring Blood Glucose: Wearing OTC Stelo. Similar time in range 14 TIR: 12% very high 49% high 39% in range 0% low or very low avmg/dl GMI: 8.0% glucose variability 21% Last Visit 14 TIR: 4% very high 46% high 50% in range 0% low or very low avmg/dl GMI: 7.6% glucose variability 20.9% Diabetes Medications: 1000mg Metformin BID 10mg Glipizide BID 1mg Ozempic Pertinent Labs: HgA1c: 9.4% 12/2022 8.6% 03/2023 8.6% 08/2023 8.5% 11/2023 8.2% 02/2024 9.7% 05/2024 8.1% 09/2024 Past Medical History: (Last Updated 12/13/23 @ 08:06 by Praneeth Singh MD) Abnormal findings on imaging test Bladder tumor Cerebellar infarct Old Cholelithiasis Chronic back pain (~1975) Chronic ethmoidal sinusitis Diverticular disease (~2015) Essential hypertension (~2010) Foot pain (~2010) Gross hematuria Herpes (~1976) Incomplete emptying of bladder Lower urinary tract symptoms Mixed hyperlipidemia (10/03/17) Secondhand smoke exposure Tinnitus Type 2 diabetes mellitus without complication (10/03/17) Vertigo (~2018) Welcome to Medicare preventive visit Nutrition Rx: Carbohydrates: Meal:30-45g Snack:15-30g Intervention: This participant was very receptive. Provided appropriate educational handouts. Discussed the following topics: Ways to increase activity that might work for him Personal goals for DM management (meds v lifestyle) Hydration Recommendation and Strategies Potential for increased GLP1 if BG is not improved by next month Diet changes and protein impact on BG Diverticulitis MNT: fiber, fluids, activity for constipation as well Created SMART goals for patient self-care and success. Goals: Check out small stationary bike- met Aim for 6-8c water per day unless contraindicated- met Move with baby around the house- met Nuts 2x per day- new Drink one water bottle by noon- new Follow-up: [facility] follow-up in 3-4 weeks Hui Garcia RDN, [facility] Certified Diabetes Care and Director Medical P: [phone] Thank you for this referral
== END ==
LOC: DIET 09:04
PROVIDERS: PCP Family Medicine; Referring Provider Family Medicine
DX: E11.9 Type 2 diabetes mellitus without complications (principal); Z79.84 Long term (current) use of oral hypoglycemic drugs; Z79.85 Long-term (current) use of injectable non-insulin antidiabetic drugs; Z71.3 Dietary counseling and surveillance
CPT/HCPCS: 97803

== ENCOUNTER → 2024-10-28 09:51 | Outpatient (CLI) | payer OTHER, SELFPAY ==
[2024-09-23 09:09] VITALS: BMI 28.8
--- NOTE | 2024-10-28 10:47 | DIAB.MNTFU ---
Follow-up Diabetes Medical Nutrition Therapy Assessment Name: Osiel Mcclain Date: 10/28/24 Time: 1005-11a Dx: Type II Diabetes Osiel presents for Dm visit today. BG improved now in the 60%. Last visit we discussed keeping TIR above 60% at this time before considerations for increasing GLP1. States daughter, grandchild, and dog has moved out, which has given him more time to focus on his health. Diet Recall: 630a: cup of coffee 1 tsp sugar and half n half, sausage and ham OR 1/2 scone 1p: leftovers 3-4p: pistachios OR mixed nuts 730p: veggies, protein, 1c potatoes OR crab cake and veggies OR rice x 1/2-1c with veggies and fish HS: nothing or nuts water: 8oz x 4-5 Some days drinking one water bottle by noon, less other days. constipation comes and goes. Hesitant about starting higher dose GLP1 in the future due to constipation. Taking stool softeners, which seem to take one day to work. States overall feels BM are better, softer but still q 2-3 days. Physical Activity: Reports 3000 steps per day. would like to increase this. Self-Monitoring Blood Glucose: Wearing OTC Stelo. Much improved TIR since last visit. 14 TIR: 2% very high 36% high 62% in range 0% low or very low avmg/dl GMI: 7.4% glucose variability 20.5% Last Visit 14 TIR: 12% very high 49% high 39% in range 0% low or very low avmg/dl GMI: 8.0% glucose variability 21% Diabetes Medications: 1000mg Metformin BID 10mg Glipizide BID 1mg Ozempic Pertinent Labs: HgA1c: 9.4% 12/2022 8.6% 03/2023 8.6% 08/2023 8.5% 11/2023 8.2% 02/2024 9.7% 05/2024 8.1% 09/2024 Past Medical History: (Last Updated 12/13/23 @ 08:06 by Praneeth Singh MD) Abnormal findings on imaging test Bladder tumor Cerebellar infarct Old Cholelithiasis Chronic back pain (~1975) Chronic ethmoidal sinusitis Diverticular disease (~2015) Essential hypertension (~2010) Foot pain (~2010) Gross hematuria Herpes (~1976) Incomplete emptying of bladder Lower urinary tract symptoms Mixed hyperlipidemia (10/03/17) Secondhand smoke exposure Tinnitus Type 2 diabetes mellitus without complication (10/03/17) Vertigo (~2018) Welcome to Medicare preventive visit Nutrition Rx: Carbohydrates: Meal:30-45g Snack:15-30g Intervention: This participant was very receptive. Provided appropriate educational handouts. Discussed the following topics: Constipation MNT Hydration and impact on BG and constipation Ways to increase water intake Ways to increase exercise Carb portions BG trends and progress Created SMART goals for patient self-care and success. Goals: Nuts 2x per day- met Drink one water bottle by noon- in progress Look into water bottles that encourage intake- new Aim for 5000 steps per day- new Follow-up: [facility] follow-up in 3-4 weeks. PCP f/u in December. Hui Garcia RDN, MERYL Certified Diabetes Care and [employer] Supervisor P: [phone] Thank you for this referral
== END ==
PROVIDERS: PCP Family Medicine
DX: E11.9 Type 2 diabetes mellitus without complications (principal); Z79.84 Long term (current) use of oral hypoglycemic drugs; Z79.85 Long-term (current) use of injectable non-insulin antidiabetic drugs; Z71.3 Dietary counseling and surveillance
CPT/HCPCS: 97803

== ENCOUNTER → 2024-12-03 09:04 | Outpatient (CLI) | payer OTHER, SELFPAY ==
[2024-09-23 09:09] VITALS: BMI 28.8
--- NOTE | 2024-12-03 09:17 | DIAB.FU ---
Follow-up Diabetes Education Assessment Name: Osiel Mcclain Date: 12/03/24 Time: 516-066a Dx: Type II Diabetes Osiel presents for Dm visit today. Has been working on hydration. Drinking about 48oz per report. Driving a lot lately to see two daughters and grandchildren. Constipation reported last visit. States this is improved lately. Usually goes every other day, sometimes a third day. States part of this may be low intake. Has increased veggies. Endorses small meals. Stress lately. Considering moving to [place]. Has concerns about HTN meds. Checking BP at home and reports some low BP results, recent reading of 90/59, one reading 65/46. Endorses getting dizzy at times, cannot pinpoint how frequent. States when he skips HTN med will have 130s/90s. Plans to discuss with PCP in December. April to May going to [place]. Concerns for eating during that time. Physical Activity: Reports [id number] steps per day. More than last visit. Self-Monitoring Blood Glucose: Wearing OTC Stelo. Endorses some major discrepancies in CGM vs finger stick results, ie FBG of 120 with CGM showing 200s for recent sensor. If sensor is reading appropriately TIR is down from last visit. Has concerns for increasing GLP1 due to constipation. 14 TIR: 9% very high 46% high 45% in range 0% low or very low avmg/dl GMI: 7.9% glucose variability 21.5% Last Visit 14 TIR: 2% very high 36% high 62% in range 0% low or very low avmg/dl GMI: 7.4% glucose variability 20.5% Diabetes Medications: 1000mg Metformin BID 10mg Glipizide BID 1mg Ozempic Pertinent Labs: HgA1c: 9.4% 12/2022 8.6% 03/2023 8.6% 08/2023 8.5% 11/2023 8.2% 02/2024 9.7% 05/2024 8.1% 09/2024 Past Medical History: (Last Updated 12/13/23 @ 08:06 by Praneeth Singh MD) Abnormal findings on imaging test Bladder tumor Cerebellar infarct Old Cholelithiasis Chronic back pain (~1975) Chronic ethmoidal sinusitis Diverticular disease (~2015) Essential hypertension (~2010) Foot pain (~2010) Gross hematuria Herpes (~1976) Incomplete emptying of bladder Lower urinary tract symptoms Mixed hyperlipidemia (10/03/17) Secondhand smoke exposure Tinnitus Type 2 diabetes mellitus without complication (10/03/17) Vertigo (~2018) Welcome to Medicare preventive visit Intervention: This participant was very receptive. Provided appropriate educational handouts. Discussed the following topics: Hydration Physical activity progress Medication options prn Increasing fiber for BM Checking SMBG for comparing to CGM Goals for BG and analisa with trips and eating Created SMART goals for patient self-care and success. Goals: Look into water bottles that encourage intake- d/c Aim for 5000 steps per day- improved Check FBG and compare to CGM- new email me in 1-2 weeks results Try fiber supplement 1-2x per day- new Keep up water intake- new Follow-up: [facility] follow-up in 4-5 weeks Hui Garcia RDN, MERYL Certified Diabetes Care and Molecular Biologist P: [phone] Thank you for this referral
== END ==
PROVIDERS: PCP Family Medicine; Referring Provider Family Medicine
DX: E11.9 Type 2 diabetes mellitus without complications (principal); I10 Essential (primary) hypertension; K59.00 Constipation, unspecified; Z71.3 Dietary counseling and surveillance; Z79.84 Long term (current) use of oral hypoglycemic drugs; Z79.85 Long-term (current) use of injectable non-insulin antidiabetic drugs
CPT/HCPCS: G0108

== ENCOUNTER → 2024-12-15 07:39 | Outpatient (CLI) | payer OTHER, SELFPAY ==
[2024-09-23 09:09] VITALS: BMI 28.8
[2024-12-15 08:10] LABS: Hemoglobin A1C% w Est Avg Glu 6.3 % (4.0-6.0)
[2024-12-15 08:17] LABS: Alanine Aminotransferase 17 IU/L (<50); Albumin 4.2 g/dL (3.5-5.0); Albumin Globulin Ratio 1.8 (1.0-2.8); Alkaline Phosphatase 67 U/L (38-126); Aspartate Aminotransferase 24 IU/L (17-59); BUN Creatinine Ratio 19.8 (6-22); Blood Urea Nitrogen 19 mg/dL (9-20); Calcium 9.5 mg/dL (8.4-10.2); Carbon Dioxide 24 mmol/L (22-32); Chloride 104 mmol/L (98-107); Estimated Glomerular Filt Rate > 60 mL/min (>60); Globulin 2.4 g/dL (1.7-4.1); Glucose 106 mg/dL (80-110); HEMOLYSIS < 15 (0-50); Potassium 4.1 mmol/L (3.4-5.1); Sodium 139 mmol/L (137-145); Total Protein 6.6 g/dL (6.3-8.2)
== END ==
LOC: LAB 07:40
PROVIDERS: PCP Family Medicine; Referring Provider Family Medicine; Visit Provider Family Medicine
DX: E11.9 Type 2 diabetes mellitus without complications (principal); E78.2 Mixed hyperlipidemia; I10 Essential (primary) hypertension
CPT/HCPCS: 36415; 80053; 83036

== ENCOUNTER → 2025-01-07 09:01 | Outpatient (CLI) | payer OTHER, SELFPAY ==
[2024-09-23 09:09] VITALS: BMI 28.8
--- NOTE | 2025-01-07 10:04 | DIAB.FU ---
Follow-up Diabetes Education Assessment Name: Osiel Mcclain Date: 01/07/25 Time: 100a Dx: Type II Diabetes Osiel presents for Dm visit today. Great HgA1c recently of 6.3%. Elevations still apparent in CGM data, which seems to mostly match finger sticks. Elevations are less this visit than previous. [place] Reports eating lots of sandwiches and pasta at that time, but also more walking. April to May going to [place]. Concerns for eating during that time. No fiber supplement. BM only q other day. Plans to try. Keeping water around more often, states hydration is going well. Forgot Ozempic on [place] trip and had to call in to pharmacy. Physical Activity: Reports 5000 steps per day recently. Up to 8000 steps during vacation. Self-Monitoring Blood Glucose: Wearing OTC Stelo. Improved TIR with significantly less time >250mg/dl. 14 TIR: 2% very high 41% high 57% in range 0% low or very low avmg/dl GMI: 7.6% glucose variability 16.5% std dev: 30 mg/dl Last Visit 14 TIR: 9% very high 46% high 45% in range 0% low or very low avmg/dl GMI: 7.9% glucose variability 21.5% Diabetes Medications: 1000mg Metformin BID 10mg Glipizide BID 1mg Ozempic Pertinent Labs: HgA1c: 9.4% 12/2022 8.6% 03/2023 8.6% 08/2023 8.5% 11/2023 8.2% 02/2024 9.7% 05/2024 8.1% 09/2024 6.3% 12/2024 Past Medical History: (Last Updated 12/13/23 @ 08:06 by Praneeth Singh MD) Abnormal findings on imaging test Bladder tumor Cerebellar infarct Old Cholelithiasis Chronic back pain (~1975) Chronic ethmoidal sinusitis Diverticular disease (~2015) Essential hypertension (~2010) Foot pain (~2010) Gross hematuria Herpes (~1976) Incomplete emptying of bladder Lower urinary tract symptoms Mixed hyperlipidemia (10/03/17) Secondhand smoke exposure Tinnitus Type 2 diabetes mellitus without complication (10/03/17) Vertigo (~2018) Welcome to Medicare preventive visit Intervention: This participant was very receptive. Provided appropriate educational handouts. Discussed the following topics: Hydration Physical activity progress Increasing fiber for BM Eating and movement on trips BG and hgA1c Created SMART goals for patient self-care and success. Goals: Check FBG and compare to CGM- met email me in 1-2 weeks results- met Try fiber supplement 1-2x per day- in progress Keep up water intake- met Pack Ozempic on [place] trip- new Drink plenty of water with fiber supplement- new Follow-up: [facility] follow-up in 6 months or sooner prn. Hui Garcia RDN, CDCES Certified Diabetes Care and [employer] P: [phone] Thank you for this referral
== END ==
PROVIDERS: PCP Family Medicine; Referring Provider Family Medicine
DX: E11.9 Type 2 diabetes mellitus without complications (principal); Z79.84 Long term (current) use of oral hypoglycemic drugs; Z79.85 Long-term (current) use of injectable non-insulin antidiabetic drugs
CPT/HCPCS: G0108

== ENCOUNTER → 2025-07-07 08:00 | Outpatient (CLI) | payer OTHER, SELFPAY ==
[2024-09-23 09:09] VITALS: BMI 28.8
--- NOTE | 2025-08-12 09:10 | DIAB.FU ---
Follow-up Diabetes Education Assessment Name: Osiel Mcclain Date: 07/07/25 Time: 8-9a Dx: Type II Diabetes Osiel presents for Dm visit today. Plans to improve eating with , she is focused on weight loss. Recent [place] trip impacting eating regimen/choices and water intake. Tried not to overindulge in general. UTD on eyes, next appt Dec 2024 Noticed elevated BG after oats inthe morning with honey, fruit and compote. At the time of this visit, he is due for labs. Physical Activity: Reports [id number] steps per day on vacation Self-Monitoring Blood Glucose: No data. Waiting on Stelo shipment. Last 14 TIR: 2% very high 41% high 57% in range 0% low or very low avmg/dl GMI: 7.6% glucose variability 16.5% std dev: 30 mg/dl Previous Visit 14 TIR: 9% very high 46% high 45% in range 0% low or very low avmg/dl GMI: 7.9% glucose variability 21.5% Diabetes Medications: 1000mg Metformin BID 10mg Glipizide BID 1mg Ozempic Pertinent Labs: HgA1c: 9.4% 12/2022 8.6% 03/2023 8.6% 08/2023 8.5% 11/2023 8.2% 02/2024 9.7% 05/2024 8.1% 09/2024 6.3% 12/2024 Past Medical History: (Last Updated 12/13/23 @ 08:06 by Praneeth Singh MD) Abnormal findings on imaging test Bladder tumor Cerebellar infarct Old Cholelithiasis Chronic back pain (~1975) Chronic ethmoidal sinusitis Diverticular disease (~2015) Essential hypertension (~2010) Foot pain (~2010) Gross hematuria Herpes (~1976) Incomplete emptying of bladder Lower urinary tract symptoms Mixed hyperlipidemia (10/03/17) Secondhand smoke exposure Tinnitus Type 2 diabetes mellitus without complication (10/03/17) Vertigo (~2018) Welcome to Medicare preventive visit Intervention: This participant was very receptive. Provided appropriate educational handouts. Discussed the following topics: Hydration Physical activity Reducing Dm complications Macro pairing and breakfast ideas Created SMART goals for patient self-care and success. Goals: Pack Ozempic on [place] trip- met Drink plenty of water with fiber supplement- in progress Add protein to oats on the side- new Reduce CHO at breakfast- new Complete labs- new Follow-up: [facility] follow-up in 6 months or sooner prn. Hui Garcia RDN, [facility] Certified Diabetes Care and [employer] P: [phone] Thank you for this referral
== END ==
LOC: DIET 08:01
PROVIDERS: PCP Family Medicine; Referring Provider Family Medicine
DX: E11.9 Type 2 diabetes mellitus without complications (principal); Z71.3 Dietary counseling and surveillance; Z79.84 Long term (current) use of oral hypoglycemic drugs; Z79.85 Long-term (current) use of injectable non-insulin antidiabetic drugs
CPT/HCPCS: G0108

== ENCOUNTER → 2025-07-24 07:08 | Outpatient (CLI) | payer OTHER, SELFPAY ==
[2024-09-23 09:09] VITALS: BMI 28.8
[2025-07-24 07:52] LABS: Add Manual Diff / Slide Review NO; Hematocrit 47.5 % (41-53); Hemoglobin 16.4 g/dL (13.5-17.5); Lymphocytes Absolute Auto 2600 /uL (1100-4500); Mean Corpuscular HGB Conc 34.6 % (30-36); Mean Corpuscular Hemoglobin 30.8 PG (26-34); Mean Corpuscular Volume 89.1 fL (80-100); Platelet Count 158 X10^3/uL (150-400)
[2025-07-24 08:00] LABS: Hemoglobin A1C% w Est Avg Glu 7.3 % (4.0-6.0)
[2025-07-24 08:28] LABS: Alanine Aminotransferase 14 IU/L (<50); Albumin 4.3 g/dL (3.5-5.0); Albumin Globulin Ratio 1.7 (1.0-2.8); Alkaline Phosphatase 92 U/L (38-126); Blood Urea Nitrogen 16 mg/dL (9-20); Calcium 9.8 mg/dL (8.4-10.2); Carbon Dioxide 27 mmol/L (22-32); Chloride 102 mmol/L (98-107); Cholesterol 130 mg/dL (140-199); Estimated Glomerular Filt Rate > 60 mL/min (>60); Globulin 2.6 g/dL (1.7-4.1); Glucose 196 mg/dL (70-99); HDL Cholesterol 58 mg/dL (40-60); HEMOLYSIS < 15 (0-50); Potassium 4.8 mmol/L (3.4-5.1); Sodium 138 mmol/L (137-145); Total Protein 6.9 g/dL (6.3-8.2); Triglycerides 121 mg/dL (35-150)
[2025-07-24 09:02] LABS: TSH w/ Reflex to FT4 1.60 uIU/mL (0.47-4.68)
[2025-07-24 09:53] LABS: Microalbumi Creatinin Ratio Ur 28.0 ug/mg CR (<30)
== END ==
PROVIDERS: PCP Family Medicine; Referring Provider Family Medicine; Visit Provider Family Medicine
DX: Z12.5 Encounter for screening for malignant neoplasm of prostate (principal); Z13.29 Encounter for screening for other suspected endocrine disorder; E11.9 Type 2 diabetes mellitus without complications; I10 Essential (primary) hypertension; E78.2 Mixed hyperlipidemia
CPT/HCPCS: 36415; 80053; 80061; 82043; 82570; 83036; 84443; 85025; G0103